=== PATIENT | female | born 1970 | race Caucasian/White ===

== ENCOUNTER 2020-04-22 09:38 | Outpatient (REF) | payer MEDICAID, SELFPAY ==
[2020-04-22 11:43] LABS: MANUAL DIFF FLAG NO
[2020-04-22 11:59] LABS: Basophils Absolute Auto 0.1 X10*3/uL (0.0-0.2); Basophils Percent Auto 0.5 % (0-2); Eosinophils Absolute Auto 0.3 X10*3/uL (0.0-0.4); Hematocrit 41.7 % (37-47); Hemoglobin 12.9 g/dl (12.0-16.0); Imm Gran Abs Auto 0.05 X10*3/uL (0.00-0.03); Imm Gran Pct Auto 0.5 % (0.0-0.4); Lymphocytes Absolute Auto 1.6 X10*3/uL (1.2-4.9); Lymphocytes Percent Auto 15.3 % (20-40); Mean Corpuscular HGB Conc 30.9 g/dl (31.0-35.0); Mean Corpuscular Hemoglobin 27.1 pg (27.0-33.0); Mean Corpuscular Volume 87.6 fL (80-98); Mean Platelet Volume 12.2 fL (9.4-12.3); Monocytes Absolute Auto 0.4 X10*3/uL (0.1-1.2); Monocytes Percent Auto 4.1 % (2-11); Neutrophils Absolute Auto 8.2 X10*3/uL (2.0-8.3); Neutrophils Percent Auto 76.6 % (45-73); Platelet Count 274 X10*3/uL (160-400); Red Blood Count 4.76 X10*6/uL (4.20-5.50); Red Cell Distribution Width 13.2 % (11.0-16.0); White Blood Count 10.7 X10*3/uL (4.8-10.8)
[2020-04-22 12:12] LABS: Estimated Average Glucose 266 mg/dL; Hemoglobin A1c % 10.9 %
[2020-04-22 12:25] LABS: Alanine Aminotransferase 36 U/L (0-31); Albumin Level 4.2 g/dL (3.5-5.0); Alkaline Phosphatase 89 U/L (39-117); Anion Gap 15 (12-20); Aspartate Amino Transferase 31 U/L (5-31); Bilirubin Total 0.7 mg/dL (0.0-1.0); Blood Urea Nitrogen 11 mg/dL (9-16); Calcium 9.1 mg/dL (8.4-10.2); Carbon Dioxide 29 mmol/L (22-29); Chloride 97 mmol/L (96-108); Estimated Glomerular Filt Rate > 60; Glucose Random 289 mg/dL (60-115); Potassium 4.6 mmol/l (3.3-5.1); Sodium 136 mmol/L (135-145); Total Protein 6.9 g/dL (6.5-8.0)
[2020-04-22 14:21] LABS: Creatinine Urine 54.23 mg/dL; Microalbum/Creatinine Ratio Ur 33.1 ug/mg cr
[2020-04-22 15:21] LABS: CT PCR NOT DETECTED (Not Detect.); NG PCR NOT DETECTED (Not Detect.)
[2020-04-22 16:47] LABS: CT PCR NOT DETECTED (Not Detect.)
[2020-04-22 16:48] LABS: NG PCR NOT DETECTED (Not Detect.)
[2020-04-23 12:58] LABS: BV Int Neg Control Negative (Negative); BV Int Pos Control Positive (Positive)
== END 2020-04-22 09:39 | disposition home or self-care (01) ==
LOC: HO.LAB 09:38
PROVIDERS: Absent Provider Internal Medicine; PCP Internal Medicine; Visit Provider Obstetrics & Gynecology
DX: Z01.419 Encounter for gynecological examination (general) (routine) without abnormal findings (principal); E11.9 Type 2 diabetes mellitus without complications; I10 Essential (primary) hypertension; E78.00 Pure hypercholesterolemia, unspecified; E66.01 Morbid (severe) obesity due to excess calories; Z68.43 Body mass index [BMI] 50.0-59.9, adult; Z86.73 Personal history of transient ischemic attack (TIA), and cerebral infarction without residual deficits
CPT/HCPCS: 36415; 80053; 82043; 83036; 85025; 87480; 87491; 87510; 87591; 87660

== ENCOUNTER 2020-08-18 13:16 | Outpatient (REF) | payer MEDICARE, MEDICAID, SELFPAY ==
[2020-08-18 15:15] LABS: Estimated Average Glucose 220 mg/dL; Hemoglobin A1c % 9.3 %
[2020-08-18 15:32] LABS: Alanine Aminotransferase 33 U/L (0-31); Alkaline Phosphatase 97 U/L (39-117); Anion Gap 14 (12-20); Aspartate Amino Transferase 23 U/L (5-31); Bilirubin Total 0.5 mg/dL (0.0-1.0); Blood Urea Nitrogen 9 mg/dL (9-16); Carbon Dioxide 29 mmol/L (22-29); Chloride 102 mmol/L (96-108); Estimated Glomerular Filt Rate > 60; Glucose Random 204 mg/dL (60-115); Potassium 4.2 mmol/L (3.3-5.1); Sodium 141 mmol/L (135-145); Total Protein 6.5 g/dL (6.5-8.0)
== END 2020-08-18 13:17 | disposition home or self-care (01) ==
LOC: HO.LAB 13:16
PROVIDERS: PCP Internal Medicine; Visit Provider Internal Medicine
DX: E11.9 Type 2 diabetes mellitus without complications (principal); I10 Essential (primary) hypertension; Z86.73 Personal history of transient ischemic attack (TIA), and cerebral infarction without residual deficits
CPT/HCPCS: 36415; 80053; 83036

== ENCOUNTER 2020-12-12 10:56 | Outpatient (REF) | payer MEDICARE, MEDICAID, SELFPAY ==
[2020-12-12 11:55] LABS: Estimated Average Glucose 189 mg/dL; Hemoglobin A1c % 8.2 %
[2020-12-12 12:16] LABS: Alanine Aminotransferase 36 U/L (0-31); Albumin Level 4.2 g/dL (3.5-5.0); Alkaline Phosphatase 86 U/L (39-117); Anion Gap 14 (12-20); Aspartate Amino Transferase 28 U/L (5-31); Bilirubin Total 0.4 mg/dL (0.0-1.0); Blood Urea Nitrogen 10 mg/dL (9-16); Calcium 9.5 mg/dL (8.4-10.2); Carbon Dioxide 27 mmol/L (22-29); Chloride 103 mmol/L (96-108); Estimated Glomerular Filt Rate > 60; Glucose Random 195 mg/dL (60-115); Potassium 4.4 mmol/L (3.3-5.1); Sodium 140 mmol/L (135-145); Total Protein 6.8 g/dL (6.5-8.0)
[2020-12-12 13:38] LABS: Microalbum/Creatinine Ratio Ur 54.2 ug/mg cr
== END 2020-12-12 10:57 | disposition home or self-care (01) ==
LOC: HO.LAB 10:56
PROVIDERS: PCP Internal Medicine; Visit Provider Internal Medicine
DX: I12.9 Hypertensive chronic kidney disease with stage 1 through stage 4 chronic kidney disease, or unspecified chronic kidney disease (principal); N18.9 Chronic kidney disease, unspecified; E11.22 Type 2 diabetes mellitus with diabetic chronic kidney disease
CPT/HCPCS: 36415; 80053; 82043; 83036

== ENCOUNTER 2021-01-16 15:44 | Outpatient (REF) | payer MEDICARE, MEDICAID, SELFPAY ==
[2021-01-16 16:17] LABS: Urine Cytology See Pathology rpt
[2021-01-16 16:24] LABS: Glucose Urine UA >=1000 MG/DL (NEG); Leukocyte Esterase Urine TRACE (NEG); Nitrite Urine NEG (NEG); Specific Gravity - Urine 1.025 (1.005-1.025); UACC Culture Trigger YES; Urine Blood 3+ (NEG); Urine Ketones 5 MG/DL (NEG); Urine Protein 2+ MG/DL (NEG-TRACE)
[2021-01-16 16:27] LABS: Appearance Urine HAZY; Color Urine DARK YELLOW
[2021-01-16 16:33] LABS: Squamous Epithelial Cell Urine 4+ /LPF
== END 2021-01-16 15:45 | disposition home or self-care (01) ==
LOC: HO.LAB 15:44
PROVIDERS: PCP Internal Medicine; Visit Provider Internal Medicine
DX: R31.9 Hematuria, unspecified (principal)
CPT/HCPCS: 81001; 81003; 87086; 88112

== ENCOUNTER 2021-01-19 06:35 | Emergency (ER) | payer MEDICARE, MEDICAID, SELFPAY ==
--- NOTE | ~2021-01-19 | US_ITS ---
EXAMINATION: US PELVIS ULTRASOUND CLINICAL INFORMATION: Vaginal bleeding. Age 50. LMP: irregular since 2018. COMPARISON: None TECHNIQUE: Ultrasound of the pelvis is performed using both transabdominal and transvaginal transducers along with Doppler. Transvaginal imaging is performed due to inadequate visualization transabdominally. FINDINGS: Uterus: The uterus is anteverted and measures 11.6 x 6.0 x 5.7 cm. Volume 208 mL. The double wall endometrial thickness mildly thickened 17 mm. The uterus is smooth in contour with normal myometrial echogenicity. There is a subtle nearly isoechoic intramural fibroid anterior right lower uterine segment measuring 2.8 x 2.2 x 2.6 cm. The remainder of the uterus is homogeneous. There is an incidental 0.7 cm nabothian cyst in the cervix. Adnexa: Neither ovary is visualized with certainty. There is no visible adnexal mass or ascites. US/US pelvic and transvaginal IMPRESSION: Uterus: -Intramural fibroid lower anterior right uterine segment 2.8 cm. -Mildly thickened double wall endometrial thickness 1.7 cm. Adnexa: -Ovaries not visualized. -No visible adnexal mass or pelvic ascites.
[2021-01-19 07:16] VITALS: BP 186/93; PULSE 103; RESP 96; TEMP 36.8; O2SAT 96
[2021-01-19 08:00] VITALS: BP 187/92; PULSE 103; RESP 18; O2SAT 96; BMI 50.2
--- NOTE | 2021-01-19 08:11 | ED.FEMALEGU ---
HPI - Female Genitourinary General Chief complaint: Vaginal Bleeding Stated complaint: severe abnormal bleeding Time Seen by Provider: 01/19/21 08:09 Source: patient Mode of arrival: ambulatory Limitations: no limitations History of Present Illness HPI Narrative: 50-year-old female came in for evaluation of vaginal bleeding. Started to have vaginal bleed 3 days ago that is gradually getting worse, patient had 1 bloody soaked vaginal pad, patient contacted her morning caregiver and having an appointment in 1 week, patient is sexually active but pretty sure she is not , no abdominal pain pelvic pain, do not feel dizzy or lightheadedness. Patient claimed that she is premenopausal and. Has been in a regular for the past 2 years after she had her stroke. Related Data Allergies Allergy/AdvReac Type Severity Reaction Status Date / Time No Known Allergies Allergy Verified 04/22/20 09:47 [No Known Allergies*] Review of Systems Review of Systems: All other systems are reviewed and are negative Constitutional: Reports as per HPI and Reports no additional constitutional complaints Eyes: Reports as per HPI and Reports no additional eye complaints Reports system reviewed and no additional complaints, except as documented Cardiovascular: Reports as per HPI and Reports no additional cardiovascular complaints Respiratory: Reports as per HPI and Reports no additional respiratory complaints Gastrointestinal: Reports as per HPI and Reports no additional gastrointestinal complaints Genitourinary: Reports no additional female genitourinary complaints Musculoskeletal: Reports no additional musculoskeletal complaints Skin/Breast: Reports system reviewed and no additional complaints, except as docu Psychiatric: Reports no additional psychiatric complaints Endocrine: Reports no additional endocrine complaints Hematologic/Lymphatic: Reports no additional hematologic/lymphatic complaints Allergic/Immunologic: Reports no additional allergic/immunologic complaints Reports system reviewed and no additional complaints, except as documented and Reports Abnormal speech present [facility] Past Medical History Medical History Diabetes Hypertension Muscle spasm Stroke Surgical History H/O dilation and curettage Hx of tubal ligation Family History Family History Father History of liver cancer Mother Hx of thyroid disease Family history of diabetes mellitus Social History Social History Alcohol intake: never Patient Tobacco Use Status: Never used Tobacco Cigarette Packs Per Day: 0.5 Cigarettes Per Day: 10.0 Years Smoked: 20 Use of substances other than those prescribed or required for medical reasons: No Advance Directives: No Advance Directives Information Provided: No Physical Exam Vital Signs: Vital Signs: Last Vital Signs Temp 98.2 F 01/19/21 07:16 Pulse 104 H 01/19/21 10:32 Resp 20 01/19/21 10:32 BP 157/82 H 01/19/21 10:32 Pulse Ox 97 01/19/21 10:32 Body Mass Index 50.2 Vital signs have been reviewed as appeared to be correct. Blood pressure elevated. Heart rate elevated.Respiration rate normal. Temperature normal. Oxygen saturation normal. Appearance: Alert. Oriented X3. No acute distress. Head: Normal external exam. Normocephalic. Atraumatic. No [place] signs noted. No raccoon eyes noted Eyes: PERRLA. EOMI. Conjunctiva and sclera normal. Eyelids normal. ENT: TM's Normal. Pharynx normal. Uvula midline. Moist mucous membranes. No trismus noted. No drooling noted. No muffled voice noted. Neck: Normal inspection. Neck supple. FROM. No adenopathy. Thyroid Normal. No meningeal signs. No neck mass noted. CVS: Normal heart rate and rhythm. Heart sound normal. No murmurs noted. Pulses normal throughout. Respiratory: No respiratory distress. Painless inspiration. Breath sounds normal. No wheezes/rales/rhonchi noted. Chest nontender. No accessory muscle usage noted or decreased air movement noted. Abdomen: Soft and nontender. Bowel sounds normal in all 4 quadrants. No distention noted. No organomegaly noted. No visible injury noted. Pelvic exam: Blood in the vault no active bleeding, no pelvic tenderness, adnexal palpable mass. Back: No CVA tenderness. Full range of motion noted. Skin: Skin warm and dry. Normal skin color. Normal skin turgor. No rashes/lesions/lacerations noted. Extremities: No lower extremity edema. Extremities exhibit normal range of motion. Extremities nontender. Neuro: Oriented X 3. No motor deficit. No sensory deficit. Reflexes normal. Course Course Course Narrative: Assessment and plan. 50-year-old female came in with menorrhagia for 2-3 days, patient had fibroid tumor in the uterus, patient otherwise hemodynamically stable no chest pain, no dizziness, no lightheadedness, orthostatic vital signs stable, H&H are stable. Patient ready have an appointment with OBGYN within 2 weeks. Patient was instructed to return if any chest pain/dizziness/lightheadedness/increase the bleeding. MDM - Female Genitourinary Lab Data Attestation: I reviewed the patient's lab results. Result diagrams: 01/19/21 08:14 01/19/21 08:14 Labs: Lab Results 01/19/21 01/19/21 01/19/21 Range/Units 08:14 08:14 08:15 WBC 10.2 (4.8-10.8) X10*3/uL RBC 4.61 (4.20-5.50) X10*6/uL Hgb 12.5 (12.0-16.0) g/dl Hct 40.3 (37-47) % MCV 87.4 (80-98) fL MCH 27.1 (27.0-33.0) pg MCHC 31.0 (31.0-35.0) g/dl RDW 14.2 (11.0-16.0) % Plt Count 304 (160-400) X10*3/uL MPV 11.3 (9.4-12.3) fL Immature Gran % (Auto) 0.3 (0.0-0.4) % Neut % (Auto) 71.9 (45-73) % Lymph % (Auto) 21.4 (20-40) % [place] % (Auto) 4.5 (2-11) % Eos % (Auto) 1.6 (0-4) % Baso % (Auto) 0.3 (0-2) % Lymph # (Auto) 2.2 (1.2-4.9) X10*3/uL [place] # (Auto) 0.5 (0.1-1.2) X10*3/uL Eos # (Auto) 0.2 (0.0-0.4) X10*3/uL Baso # (Auto) 0.0 (0.0-0.2) X10*3/uL Abs Immat Gran (auto) 0.03 (0.00-0.03) X10*3/uL Absolute Neuts (auto) 7.4 (2.0-8.3) X10*3/uL Absolute Nucleated RBC 0.000 (0.0-0.012) X10*3/uL Nucleated RBC % (auto) 0.0 (0.0-0.2) /100WBC Sodium 141 (135-145) mmol/L Potassium 4.2 (3.3-5.1) mmol/L Chloride 102 (96-108) mmol/L Carbon Dioxide 28 (22-29) mmol/L Anion Gap 15 (12-20) BUN 10 (9-16) mg/dL Creatinine 0.73 (0.5-1.4) mg/dL Estim Creat Clear Calc 130.9 Estimated GFR > 60 Random Glucose 231 H (60-115) mg/dL Calcium 10.2 D (8.4-10.2) mg/dL Urine Color YELLOW Urine Appearance HAZY Urine pH 5.5 (5.0-8.0) Ur Specific [place] >= 1.030 H (1.005-1.025) Urine Protein TRACE (NEG-TRACE) MG/DL Urine Glucose (UA) 500 H (NEG) MG/DL Urine Ketones 5 (NEG) MG/DL Urine Blood 3+ H (NEG) Urine Nitrite NEG (NEG) Ur Leukocyte Esterase NEG (NEG) Urine RBC 50-75 H (0) /HPF Urine WBC 1-4 (0-4) /HPF Ur Squamous Epith Cells 1+ /LPF Urine Bacteria NONE /LPF Urine Test (NEGATIVE) 01/19/21 Range/Units 08:15 WBC (4.8-10.8) X10*3/uL RBC (4.20-5.50) X10*6/uL Hgb (12.0-16.0) g/dl Hct (37-47) % MCV (80-98) fL MCH (27.0-33.0) pg MCHC (31.0-35.0) g/dl RDW (11.0-16.0) % Plt Count (160-400) X10*3/uL MPV (9.4-12.3) fL Immature Gran % (Auto) (0.0-0.4) % Neut % (Auto) (45-73) % Lymph % (Auto) (20-40) % [place] % (Auto) (2-11) % Eos % (Auto) (0-4) % Baso % (Auto) (0-2) % Lymph # (Auto) (1.2-4.9) X10*3/uL [place] # (Auto) (0.1-1.2) X10*3/uL Eos # (Auto) (0.0-0.4) X10*3/uL Baso # (Auto) (0.0-0.2) X10*3/uL Abs Immat Gran (auto) (0.00-0.03) X10*3/uL Absolute Neuts (auto) (2.0-8.3) X10*3/uL Absolute Nucleated RBC (0.0-0.012) X10*3/uL Nucleated RBC % (auto) (0.0-0.2) /100WBC Sodium (135-145) mmol/L Potassium (3.3-5.1) mmol/L Chloride (96-108) mmol/L Carbon Dioxide (22-29) mmol/L Anion Gap (12-20) BUN (9-16) mg/dL Creatinine (0.5-1.4) mg/dL Estim Creat Clear Calc Estimated GFR Random Glucose (60-115) mg/dL Calcium (8.4-10.2) mg/dL Urine Color Urine Appearance Urine pH (5.0-8.0) Ur Specific [place] (1.005-1.025) Urine Protein (NEG-TRACE) MG/DL Urine Glucose (UA) (NEG) MG/DL Urine Ketones (NEG) MG/DL Urine Blood (NEG) Urine Nitrite (NEG) Ur Leukocyte Esterase (NEG) Urine RBC (0) /HPF Urine WBC (0-4) /HPF Ur Squamous Epith Cells /LPF Urine Bacteria /LPF Urine Test NEGATIVE (NEGATIVE) Imaging Data Pelvic ultrasound: Radiologist's impression: Ovaries not visualized. -No visible adnexal mass or pelvic ascites. Uterus: -Intramural fibroid lower anterior right uterine segment 2.8 cm. -Mildly thickened double wall endometrial thickness 1.7 cm. Discharge Plan Discharge Clinical Impression: Menometrorrhagia, Fibroid uterus Patient Disposition: Home, Self-Care Instructions: Menorrhagia (ED) Referrals: Guanaco Osuna MD [Primary Care Provider] - 2 days Maria Alejandra Miller MD [Physician] - 2 days
[2021-01-19 08:27] LABS: MANUAL DIFF FLAG NO
[2021-01-19 08:29] LABS: Basophils Percent Auto 0.3 % (0-2); Eosinophils Absolute Auto 0.2 X10*3/uL (0.0-0.4); Eosinophils Percent Auto 1.6 % (0-4); Hematocrit 40.3 % (37-47); Hemoglobin 12.5 g/dl (12.0-16.0); Imm Gran Abs Auto 0.03 X10*3/uL (0.00-0.03); Imm Gran Pct Auto 0.3 % (0.0-0.4); Lymphocytes Absolute Auto 2.2 X10*3/uL (1.2-4.9); Lymphocytes Percent Auto 21.4 % (20-40); Mean Corpuscular Hemoglobin 27.1 pg (27.0-33.0); Mean Corpuscular Volume 87.4 fL (80-98); Mean Platelet Volume 11.3 fL (9.4-12.3); Monocytes Absolute Auto 0.5 X10*3/uL (0.1-1.2); Monocytes Percent Auto 4.5 % (2-11); Neutrophils Absolute Auto 7.4 X10*3/uL (2.0-8.3); Neutrophils Percent Auto 71.9 % (45-73); Platelet Count 304 X10*3/uL (160-400); Red Blood Count 4.61 X10*6/uL (4.20-5.50); Red Cell Distribution Width 14.2 % (11.0-16.0); White Blood Count 10.2 X10*3/uL (4.8-10.8)
[2021-01-19 08:31] LABS: Glucose Urine UA 500 MG/DL (NEG); Leukocyte Esterase Urine NEG (NEG); Nitrite Urine NEG (NEG); PH 5.5 (5.0-8.0); Specific Gravity - Urine >= 1.030 (1.005-1.025); UACC Culture Trigger NO; Urine Blood 3+ (NEG); Urine Ketones 5 MG/DL (NEG); Urine Protein TRACE MG/DL (NEG-TRACE)
[2021-01-19 08:33] LABS: Appearance Urine HAZY; Color Urine YELLOW
[2021-01-19 08:41] LABS: RBC Urine 50-75 /HPF (0); Squamous Epithelial Cell Urine 1+ /LPF
[2021-01-19 08:42] LABS: UPreg QC Valid YES; Urine Pregnancy NEGATIVE (NEGATIVE)
[2021-01-19 09:00] LABS: Anion Gap 15 (12-20); Blood Urea Nitrogen 10 mg/dL (9-16); Calcium 10.2 mg/dL (8.4-10.2); Carbon Dioxide 28 mmol/L (22-29); Chloride 102 mmol/L (96-108); Creatinine Clr Calc Pharmacy 130.9; Estimated Glomerular Filt Rate > 60; Glucose Random 231 mg/dL (60-115); Potassium 4.2 mmol/L (3.3-5.1); Sodium 141 mmol/L (135-145)
--- NOTE | 2021-01-19 09:18 | PC.NURSE ---
pt to ultrasound via wheelchair. Pt is alert and in no distress
--- NOTE | 2021-01-19 10:00 | PC.NURSE ---
Patient is back from ultrasound in no acute distress
[2021-01-19 10:27] VITALS: BP 142/73; BP 157/83; PULSE 102; PULSE 99
[2021-01-19 10:30] VITALS: BP 157/82; PULSE 104
[2021-01-19 10:32] VITALS: BP 157/82; PULSE 104; RESP 20; O2SAT 97
--- NOTE | 2021-01-19 10:45 | PC.NURSE ---
Patient set up for pelvic exam
--- NOTE | 2021-01-19 10:55 | PC.NURSE ---
Doctor at bedside for pelvic exam. Pt tolerated procedure well.
== END 2021-01-19 11:38 | disposition home or self-care (01) ==
PROVIDERS: Emergency Provider Emergency Medicine; PCP Internal Medicine
DX: N92.1 Excessive and frequent menstruation with irregular cycle (principal); D25.9 Leiomyoma of uterus, unspecified; R42 Dizziness and giddiness; F17.210 Nicotine dependence, cigarettes, uncomplicated; Z71.6 Tobacco abuse counseling; Z79.899 Other long term (current) drug therapy
CPT/HCPCS: 36415; 76830; 76856; 80048; 81001; 81025; 85025; 99285

== ENCOUNTER 2021-01-31 13:15 | Outpatient (REF) | payer MEDICARE, MEDICAID, SELFPAY ==
[2021-02-02 17:22] LABS: HPV mRNA E6/E7 rflx Not Detected (Not Detected)
== END 2021-01-31 13:16 | disposition home or self-care (01) ==
LOC: HO.LAB 13:15
PROVIDERS: PCP Internal Medicine; Visit Provider Advanced Practice Midwife
DX: N93.9 Abnormal uterine and vaginal bleeding, unspecified (principal); D21.9 Benign neoplasm of connective and other soft tissue, unspecified; Z11.51 Encounter for screening for human papillomavirus (HPV)
CPT/HCPCS: 58100; 87624; 88142; 88305

== ENCOUNTER → 2021-02-08 15:49 | Outpatient (BNVA) | payer MEDICARE, MEDICAID, SELFPAY | PROVIDERS: PCP Internal Medicine; Visit Provider Advanced Practice Midwife | DX: N93.9 Abnormal uterine and vaginal bleeding, unspecified (principal); N85.02 Endometrial intraepithelial neoplasia [EIN]; D25.9 Leiomyoma of uterus, unspecified; E11.9 Type 2 diabetes mellitus without complications; I10 Essential (primary) hypertension; F17.210 Nicotine dependence, cigarettes, uncomplicated; Z98.51 Tubal ligation status; Z71.2 Person consulting for explanation of examination or test findings | CPT/HCPCS: Q3014 ==

== ENCOUNTER 2021-03-23 12:46 | Outpatient (REF) | payer MEDICARE, MEDICAID, SELFPAY ==
--- NOTE | ~2021-03-23 | US_ITS ---
EXAMINATION: US EXTRACRANIAL CAROTID DUPLEX, BILATERAL CLINICAL INFORMATION: CVA and TIA COMPARISON: 01/24/2018. TECHNIQUE: Real-time ultrasound and Doppler techniques (integrating B-mode 2-D vascular images, Doppler spectral analysis and color-flow Doppler imaging) were utilized to interrogate the extracranial carotid arteries, the vertebral arteries and proximal subclavian arteries bilaterally. The degree of stenosis is determined by criteria similar to NASCET. FINDINGS: Right Side: 1. There is minimal atherosclerotic plaque seen in the bifurcation/proximal ICA region. 2. The common carotid artery PSV proximally is 116 cm/s and distally 95 cm/s. 3. The proximal internal carotid artery velocities are 76 cm/s systolic and 16 cm/s diastolic. 4. The proximal external carotid artery PSV is 117 cm/s. 5. The vertebral artery shows antegrade flow. 6. The subclavian artery waveforms are normal. Left Side: 1. There is minimal atherosclerotic plaque seen in the bifurcation/proximal ICA region. 2. The common carotid artery PSV proximally is 114 cm/s and distally 98 cm/s. 3. The proximal internal carotid artery velocities are 86 cm/s systolic and 21 cm/s diastolic. 4. The proximal external carotid artery PSV is 96 cm/s. 5. The vertebral artery shows antegrade flow. 6. The subclavian artery waveforms are normal. US/US carotid duplex BI IMPRESSION: 1. RIGHT: Minimal, non-hemodynamically significant stenosis of the proximal right internal carotid artery corresponding to a 0-49% stenosis by velocity criteria. 2. LEFT: Minimal, non-hemodynamically significant stenosis of the proximal left internal carotid artery corresponding to a 0-49% stenosis by velocity criteria. 3. These findings are new compared to the study in 2018.
== END 2021-03-23 12:47 | disposition home or self-care (01) ==
LOC: HO.HMGCX 12:46
PROVIDERS: PCP Internal Medicine; Visit Provider Internal Medicine
DX: Z01.818 Encounter for other preprocedural examination (principal); I10 Essential (primary) hypertension; Z86.73 Personal history of transient ischemic attack (TIA), and cerebral infarction without residual deficits
CPT/HCPCS: 93880

== ENCOUNTER → 2021-03-28 07:10 | Outpatient (REF) | payer MEDICARE, MEDICAID, SELFPAY ==
--- NOTE | 2021-03-28 07:14 | CA_ITS ---
Transthoracic Echocardiogram Patient (Last, First, Middle): Loraine Mathias, Gender: Female Date of : 1970 Age: 50 Procedure Date: 03/28/2021 Procedure Type: Transthoracic Echocardiogram Location: OP Height: 165.1 cm Weight: 136.53 kg BSA: 2.35 m2 Heart Rate: bpm BP: 138 / 80 mmHg Proof Reader: Referring MD: Guanaco Osuna MD Symptoms: HX OF TRANSIENT ISCHEMIC ATTACK, I10 HTN Study Quality: Fair ECG Rhythm: Sinus Conclusions: - The left ventricular systolic function is normal. The visually estimated ejection fraction is between 65-70%. - There is mild calcification of the aortic valve. - No obvious valvular pathology seen on this study. Findings Procedure Information Contrast agent, definity, is being given per protocol without apparent complications. Left Ventricle Normal left ventricular cavity size. There is mildly increased left ventricular wall thickness. The left ventricular systolic function is normal. The visually estimated ejection fraction is between 65-70%. There is no evidence of regional wall motion abnormalities. Diastolic function is normal for age. Right Ventricle Normal right ventricular cavity size and systolic function. Atria Both atria are normal in size. Aortic Valve The aortic valve was not well visualized. There is mild calcification of the aortic valve. There is no aortic valve stenosis. There is no aortic valve regurgitation. Mitral Valve The mitral valve appears normal. There is trace mitral valve regurgitation. There is no mitral valve stenosis. Pulmonic Valve The pulmonic valve was not well visualized. Tricuspid Valve Normal tricuspid valve structure. There is trace tricuspid valve regurgitation. The pulmonary artery systolic pressure is normal. Great Vessels The aortic annulus, sinuses of valsalva, and asc aorta are normal in size. Venous The inferior vena cava is normal in size and collapses greater than 50% with inspiration. Pericardium/Pleural There is no evidence of pericardial effusion. Prior Study Comparison No significant change compared to prior study dated: 01/24/2018. Recommendations, Care & Conclusions No obvious valvular pathology seen on this study. Measurements 2D Linear Measurements IVSd: 1.53 0.6-0.9/0.6-1.0 cm LVIDd: 4.19 3.9-5.3/4.2-5.9 cm LVIDd Index: 1.78 2.4-3.2/2.2-3.1 cm/m2 LVIDs: 2.60 2.0-3.6 cm LVPWd: 1.53 0.7-1.1 cm Ao Root: 3.20 2.1-3.5 cm LA Diam: 3.90 2.7-3.8/3.0-4.0 cm LAIDs Index: 1.66 1.5-2.3 cm/m2 LV Mass: 319.82 67-162/88-224 g LV Mass Index: 136.09 43-95/49-115 g/m2 LVOT Diam: 2.20 3.0+(-)1.3 cm Mitral Valve MV Pk E: 0.84 MV PK A: 0.70 MV Decel Time: 96.00 E/A: 1.20 E'Lateral: 10.10 E'Medial: 9.90 E/E' Med: 8.50 E/E' Lat: 8.40 PHT: 28.00 MVA PHT: 7.86 Decel [place]: 8.83 Aortic Valve AoV Pk Abdias: 1.26 AoV Mn Abdias: 0.81 AoV VTI: 0.27 AoV Pk Grad: 6.00 Aov Mn Grad: 3.00 CHANDU Cont.VTI: 2.33 LVOT LVOT Pk Abdias: 0.74 LVOT Mn Abdias: 0.51 LVOT VTI: 0.16 LVOT Pk Grad: 2.00 LVOT Mn Grad: 1.00 LVOT Diam: 2.20 LVOT Area: 3.80 Diastolic Function MV Pk E: 0.84 MV Pk A: 0.70 E/A: 1.20 E'Medial: 9.90 E/E' Med: 8.50 E' Laterial: 10.10 E/E' Lat: 8.40 Right Ventricle TAPSE (mm): 31.00 TVS' Abdias: 13.00 Tricuspid Valve TR Pk Abdias: 1.71 TR Pk Grad: 12.00 Great Vessels Aorta Ao Root-2D: 3.20 2.0-3.7 cm Pulmonary Valve PV Pk Abdias: 1.11 Peak PV Grad: 5.00 Updated in Other Vendor System with Status of Final Killian Fritz MD electronically signed on 03/28/2021 12:41:44 PM with status of Final
== END ==
LOC: HO.CARD 07:10
PROVIDERS: Visit Provider Internal Medicine
DX: I10 Essential (primary) hypertension (principal); Z86.73 Personal history of transient ischemic attack (TIA), and cerebral infarction without residual deficits
CPT/HCPCS: 93306; Q9957

== ENCOUNTER 2021-09-29 14:46 | Outpatient (REF) | payer MEDICARE, MEDICAID, SELFPAY ==
[2021-09-29 15:05] LABS: MANUAL DIFF FLAG NO
[2021-09-29 15:09] LABS: Basophils Percent Auto 0.4 % (0-2); Eosinophils Absolute Auto 0.1 X10*3/uL (0.0-0.4); Eosinophils Percent Auto 1.4 % (0-4); Hematocrit 38.5 % (37.0-47.0); Hemoglobin 11.8 g/dl (12.0-16.0); Imm Gran Abs Auto 0.03 X10*3/uL (0.00-0.03); Imm Gran Pct Auto 0.3 % (0.0-0.4); Lymphocytes Absolute Auto 1.7 X10*3/uL (1.2-4.9); Lymphocytes Percent Auto 16.8 % (20-40); Mean Corpuscular HGB Conc 30.6 g/dl (31.0-35.0); Mean Corpuscular Hemoglobin 26.3 pg (27.0-33.0); Mean Corpuscular Volume 85.9 fL (80.0-98.0); Mean Platelet Volume 11.4 fL (9.4-12.3); Monocytes Absolute Auto 0.4 X10*3/uL (0.1-1.2); Monocytes Percent Auto 3.9 % (2-11); Neutrophils Absolute Auto 7.7 x10*3/uL (2.0-8.3); Neutrophils Percent Auto 77.2 % (45-73); Platelet Count 302 X10*3/uL (160-400); Red Blood Count 4.48 X10*6/uL (4.20-5.50); White Blood Count 9.9 X10*3/uL (4.8-10.8)
[2021-09-29 15:18] LABS: Estimated Average Glucose 203 mg/dL; Hemoglobin A1c % 8.7 %
[2021-09-29 15:43] LABS: Alanine Aminotransferase 30 U/L (0-31); Albumin Level 4.5 g/dL (3.5-5.0); Alkaline Phosphatase 97 U/L (39-117); Anion Gap 17 (12-20); Aspartate Amino Transferase 22 U/L (5-31); Bilirubin Total 0.5 mg/dL (0.0-1.0); Blood Urea Nitrogen 10 mg/dL (9-16); Carbon Dioxide 25 mmol/L (22-29); Chloride 103 mmol/L (96-108); Estimated Glomerular Filt Rate > 60; Glucose Random 247 mg/dL (60-115); Potassium 4.5 mmol/L (3.3-5.1); Sodium 140 mmol/L (135-145); Total Protein 7.4 g/dL (6.5-8.0)
[2021-09-29 16:07] LABS: Creatinine Urine 119.43 mg/dL; Microalbum/Creatinine Ratio Ur 210.1 ug/mg cr
== END 2021-09-29 14:47 | disposition home or self-care (01) ==
LOC: HO.LAB 14:46
PROVIDERS: PCP Internal Medicine; Visit Provider Internal Medicine
DX: I10 Essential (primary) hypertension (principal); E11.9 Type 2 diabetes mellitus without complications
CPT/HCPCS: 36415; 80053; 82043; 83036; 85025

== ENCOUNTER 2021-12-26 12:36 | Inpatient (IN) | payer MEDICARE, MEDICAID, SELFPAY ==
[2021-12-26] VITALS (9 sets, daily range): BP systolic 161–190; BP diastolic 73–88; PULSE 90–106; RESP 14–20; TEMP 36.3–37; O2SAT 95–97; BMI 44.2
--- NOTE | ~2021-12-26 | XR_ITS ---
EXAMINATION: XR CHEST CLINICAL INFORMATION: Difficulty breathing COMPARISON: None TECHNIQUE: Frontal view of the chest was obtained. FINDINGS: No significant abnormality is noted involving the heart, lungs, mediastinum, bony thorax or soft tissues. XR/XR chest 1V IMPRESSION: Unremarkable examination.
--- NOTE | ~2021-12-26 | CT_ITS ---
EXAMINATION: CT ANGIOGRAM HEAD CT ANGIOGRAM NECK CLINICAL INFORMATION: Cerebrovascular accident. COMPARISON: Brain MRI from 12/26/2021. CT head from 12/26/2021. TECHNIQUE: Initial noncontrast business owner/engineer imaging of the head and neck was performed. Noncontrast head CT was also performed. Test bolus sequences followed by intravenous administration 70 mL of Omnipaque 350. Helical imaging was performed in the axial plane from the aortic arch to the skull vertex. Delayed postcontrast imaging of the head was also performed. The data was processed at the special procedure technologist's workstation for generation of MIP sequences. Angled MIPs and volume rendered reformatted images were also generated at an offline 3D workstation. Stenoses are assessed in accordance with NASCET criteria unless otherwise indicated. This CT examination was performed using dose optimization techniques as appropriate, variously including the following: *Automated exposure control. *Adjustment of mA and/or kV according to patient size (this includes techniques or standardized protocols for targeted exams where dose is matched to indication/reason for exam; i.e. extremities or head). *Use of iterative reconstruction technique. DLP: 3053 mGy-cm FINDINGS: CT Head: There is no evidence of acute intracranial hemorrhage or edematous territorial infarction. A few foci of hypoattenuation in the periventricular and deep white matter are consistent with mild microangiopathy. Thompson-white matter differentiation is preserved. The ventricles are normal in size and configuration. No evidence for obstructive hydrocephalus. No abnormal mass effect or midline shift. No extra-axial fluid collections. No pathologic intra-axial enhancement or regional oligemia. No acute soft tissue or osseous abnormalities. Mild mucosal thickening of the paranasal sinuses. Moderate rightward nasal septal deviation. The mastoid air cells and middle ear cavities are clear. The patient is edentulous. CT Neck: The thyroid gland and remaining cervical soft tissues are within normal limits. Straightening of the normal cervical lordosis. Advanced degenerative disc disease at C6-C7. Moderate degenerative disc disease at C5-C6 and C7-T1. Associated disc-osteophyte complex formation. Facet and uncovertebral joint arthropathy leads to osseous encroachment on the neural foramina at C6-C7. CT Upper Chest: The visualized lung apices and upper mediastinum are within normal limits. Neck CTA: Aortic Arch: Normal contour and caliber. Classic 3 vessel branching pattern of the aortic arch. Great Vessel Origins: No significant stenosis of the branch origins. Right Common Carotid Artery: No focal stenosis or occlusion. Cervical Right Internal Carotid Artery: Normal opacification without focal stenosis or occlusion. Left Common Carotid Artery: No focal stenosis or occlusion. Cervical Left Internal Carotid Artery: Normal opacification without focal stenosis or occlusion. Cervical Right Vertebral Artery: Co-dominant. The origin of the right vertebral artery is not well evaluated secondary to significant surrounding venous contrast opacification. Otherwise, no demonstrated focal stenosis or occlusion. Cervical Left Vertebral Artery: Co-dominant. No focal stenosis or occlusion. Brain CTA: Intracranial Internal Carotid Arteries: Calcific atherosclerotic disease of the intracranial internal carotid arteries without occlusion or flow-limiting stenosis. Right Anterior Cerebral Artery: Normal A1 segment. Normal opacification of the distal ТАТЬЯНА segments. Left Anterior Cerebral Artery: Normal A1 segment. Normal opacification of the distal ТАТЬЯНА segments. Anterior Communicating Artery: Normal. Right Middle Cerebral Artery: Normal M1 segment of the MCA without focal stenosis or occlusion. Normal arborization of the distal segments. Left Middle Cerebral Artery: Normal M1 segment of the MCA without focal stenosis or occlusion. Normal arborization of the distal segments. Right Vertebral Artery: Normal V4 segment. The posterior inferior cerebellar artery is not well opacified; however, there is no CT evidence of acute occlusion. Left Vertebral Artery: Normal V4 segment. The posterior inferior cerebellar artery is not well opacified; however, there is no CT evidence of acute occlusion. Basilar Artery: Normal without focal stenosis or occlusion. Normal appearance of the proximal superior cerebellar arteries. Right Posterior Cerebral Artery: Moderate atherosclerotic stenoses of the P1 and P2 segments without overt occlusion. Persistent opacification of the distal SHEET METAL FOREMAN segments. Left Posterior Cerebral Artery: Normal P1 segment. Mild to moderate atherosclerotic stenosis of the P2 segment. Normal opacification of the distal SHEET METAL FOREMAN segments. Normal opacification of the superior sagittal, straight, transverse, and sigmoid sinuses. CT/CT angio head neck IMPRESSION: 1. No evidence of acute intracranial hemorrhage or edematous territorial infarction. The previously noted punctate acute infarct of the right ventral medulla was better demonstrated on prior MRI. 2. CTA of the head and neck without proximal occlusion. Moderate atherosclerotic stenoses of the proximal global consumer sector vice president (right greater than left).
--- NOTE | ~2021-12-26 | CT_ITS ---
EXAMINATION: CT HEAD WITHOUT CONTRAST CLINICAL INFORMATION: Worsening right-sided deficits since Saturday COMPARISON: Previous head CT and brain MRI January 2018 TECHNIQUE: Contiguous axial imaging was performed from the skull base to vertex without intravenous administration of contrast. This CT examination was performed using dose optimization techniques as appropriate, variously including the following: *Automated exposure control *Adjustment of mA and/or kV according to patient size (this includes techniques or standardized protocols for targeted exams where dose is matched to indication/reason for exam; i.e. extremities or head) *Use of iterative reconstruction technique DLP: 868 mGy-cm FINDINGS: There is no evidence of acute intracranial hemorrhage or territorial infarction. No abnormal mass effect or midline shift is seen. Thompson to white matter differentiation is well preserved. No extra-axial fluid collections are identified. The ventricles are normal in size. There is no abnormal attenuation within the brain parenchyma. The osseous structures and soft tissues are normal. The mastoid air cells and visualized portions of the paranasal sinuses are well aerated. CT/CT head/brain wo con IMPRESSION: Unremarkable exam.
--- NOTE | ~2021-12-26 | MR_ITS ---
MRI OF THE BRAIN WITHOUT IV CONTRAST INDICATION: Worsening right-sided weakness COMPARISON: Head CT 12/26/2021. TECHNIQUE: Multiplanar multisequence MR imaging of the brain was obtained without IV contrast. FINDINGS: There is a small acute infarct involving the right ventral medulla. There is no hydrocephalus, extra-axial surface collection, or herniation. There is global cerebral volume loss and there is mild chronic microangiopathy. There is cerebellar volume loss as well. The major flow voids at the skull base are preserved. There is no intracranial hemorrhage on the gradient recalled echo acquisition. The midline structures are normal. The cerebellar tonsils are normally positioned. The craniocervical junction is normal. Osseous marrow signal intensity is homogenous. The visualized soft tissues are unremarkable. MR/MR head/brain wo con IMPRESSION: - There is a small acute infarct involving the right ventral medulla. No mass effect and no hemorrhagic transformation. - There is global cerebral volume loss and there is mild chronic microangiopathy. There is cerebellar volume loss as well.
--- NOTE | 2021-12-26 12:52 | ED_ITS ---
HPI - Neuro Symptoms/Deficit General Chief Complaint: Stroke Stated Complaint: possible TIA , can't move R side of body Time Seen by Provider: 12/26/21 12:45 Source: patient and old records reviewed Mode of arrival: ambulatory Limitations: no limitations History of Present Illness HPI Narrative: 51 yo female with hx of CVA in 2018 residual R sided deficits ( R hand contracted, RLE weakness) DM, HTN here with c/o noticing worsening weakness of her R side Saturday which progressed on Saturday night around 6pm and became severe to the point she couldn't raise her R arm and she is having a hard time walking. She is compliant with her medications and took her baby ASA today. No falls. Onset (ago): day(s) (2) Location: right arm and right leg History of same: Yes Severity: moderate Quality: weak Relieving factors: none Exacerbating factors: none Context: gradual onset On Anticoagulants: No Associated symptoms: denies other symptoms Treatments Prior to Arrival: Aspirin Related Data Home Medications Medication Instructions Recorded Confirmed aspirin 81 mg tablet,delayed 81 mg PO DAILY 01/31/21 release (Adult Low Dose Aspirin) atorvastatin 40 mg tablet mg PO 01/31/21 baclofen 10 mg tablet mg PO 01/31/21 bupropion HCl 300 mg 24 hr tablet, mg PO 01/31/21 extended release dulaglutide 1.5 mg/0.5 mL mg subcut 01/31/21 subcutaneous pen injector (Trulicity) fluoxetine 20 mg capsule mg PO 01/31/21 gabapentin 100 mg capsule mg PO 01/31/21 gabapentin 300 mg capsule mg PO 01/31/21 glipizide 5 mg tablet, extended mg PO 01/31/21 release 24 hr lisinopril 20 mg tablet mg PO 01/31/21 metformin 1,000 mg tablet mg PO 01/31/21 omeprazole 20 mg capsule,delayed mg PO 01/31/21 release prochlorperazine maleate 10 mg mg PO 01/31/21 tablet Allergies Allergy/AdvReac Type Severity Reaction Status Date / Time No Known Allergies Allergy Verified 02/08/21 15:49 [No Known Allergies*] Review of Systems Review of Systems: Constitutional : No Weight loss, No Fever, No Chills, No Fatigue, No Malaise ENT/Mouth : No sore throat, No Rhinorrhea Eyes: No Eye Pain, No Swelling, No Redness Cardiovascular : No Chest Pain, No SOB, No Dyspnea on Exertion, No Orthopnea, No Edema, No Palpitations Respiratory : No Cough, No Sputum, No Wheezing Gastrointestinal : No Nausea, No Vomiting, No Diarrhea, No Constipation, No abdominal Pain, No Hematochezia, No Melena Genitourinary : No Dysuria, No Urinary Frequency, No Hematuria, Musculoskeletal : No joint pain, No Myalgias, No Joint Swelling Skin : No Skin Lesions, No rash Neuro : pos Weakness, No Numbness, No Dizziness, No Headache Psych : No Anxiety/Panic, No Depression Heme/Lymph: No Bruising, No Bleeding,No Lymphadenopathy Endocrine : No Polyuria, No Polydipsia All other systems reviewed and are negative [facility] Past Medical History Attestation statement: The following information was validated with the patient. Source: old records reviewed Medical History Complex atypical endometrial hyperplasia CVA (cerebral vascular accident) Diabetes Fibroids Hypertension Muscle spasm Stroke Surgical History H/O dilation and curettage Hx of adenoidectomy Hx of tubal ligation Family History Family History Father History of liver cancer Mother Hx of thyroid disease Family history of diabetes mellitus Social History Social History Alcohol intake: never Patient Tobacco Use Status: Never used Tobacco Cigarette Packs Per Day: 0.5 Cigarettes Per Day: 10.0 Years Smoked: 20 Advance Directives: No Advance Directives Information Provided: No Physical Exam Vital Signs: Vital Signs: Last Vital Signs Temp 98.6 F 12/26/21 15:28 Pulse 96 12/26/21 15:28 Resp 18 12/26/21 15:28 BP 188/82 H 12/26/21 15:28 Pulse Ox 95 12/26/21 15:28 O2 Del Method 12/26/21 15:28 BMI result Body Mass Index 44.2 Appearance: Alert. Oriented X3. No acute distress. Eyes: Pupils equal, round and reactive to light. ENT: Pharynx normal. Neck: Normal inspection. Neck supple. CVS: Normal heart rate and rhythm. Pulses normal. Respiratory: No respiratory distress. Breath sounds normal. Abdomen: Soft and non-tender. Skin: Skin warm and dry. Normal skin color. Normal skin turgor. Extremities: No lower extremity edema. No calf ttp Neuro: Oriented X 3. R hand contracted (old) cannot life R up at shoulder 3+ / 5 RLE 4/5, L side 5/5, no sensory deficits, CN intact Course Course Course Narrative: CT head negative will obtain MRI aspirin ordered + stroke will admit for further workup MDM - Neuro Symptoms/Deficit MDM Narrative Medical decision making narrative: 51 yo female with hx of CVA in 2018 residual R sided deficits ( R hand c ontracted, RLE weakness) DM, HTN here with worsening R sided deficits from prior stroke over the past two days. She is out of the tPa window at this time. Will obtain basic labs, EKG, CT head - symptoms > 24 hours. Dispo per results and findings. Lab Data Result diagrams: 12/26/21 13:22 12/26/21 13:22 Labs: Lab Results 12/26/21 12/26/21 12/26/21 Range/Units 13:18 13:22 13:22 WBC 10.7 (4.8-10.8) X10*3/uL RBC 4.71 (4.20-5.50) X10*6/uL Hgb 12.0 (12.0-16.0) g/dl Hct 40.1 (37.0-47.0) % MCV 85.1 (80.0-98.0) fL MCH 25.5 L (27.0-33.0) pg MCHC 29.9 L (31.0-35.0) g/dl RDW 15.0 (11.0-16.0) % Plt Count 292 (160-400) X10*3/uL MPV 11.6 (9.4-12.3) fL Immature Gran % (Auto) 0.3 (0.0-0.4) % Neut % (Auto) 77.0 H (45-73) % Lymph % (Auto) 17.0 L (20-40) % [place] % (Auto) 3.7 (2-11) % Eos % (Auto) 1.7 (0-4) % Baso % (Auto) 0.3 (0-2) % Lymph # (Auto) 1.8 (1.2-4.9) X10*3/uL [place] # (Auto) 0.4 (0.1-1.2) X10*3/uL Eos # (Auto) 0.2 (0.0-0.4) X10*3/uL Baso # (Auto) 0.0 (0.0-0.2) X10*3/uL Abs Immat Gran (auto) 0.03 (0.00-0.03) X10*3/uL Absolute Neuts (auto) 8.3 (2.0-8.3) x10*3/uL Absolute Nucleated RBC 0.000 (0.0-0.012) X10*3/uL Nucleated RBC % (auto) 0.0 (0.0-0.2) /100WBC PT 10.8 (10.0-13.1) SEC INR 0.9 (0.9-1.1) APTT 33.4 (24.1-38.0) SEC Sodium (135-145) mmol/L Potassium (3.3-5.1) mmol/L Chloride (96-108) mmol/L Carbon Dioxide (22-29) mmol/L Anion Gap (12-20) BUN (9-16) mg/dL Creatinine (0.5-1.4) mg/dL Estim Creat Clear Calc Estimated GFR Random Glucose (60-115) mg/dL Estimat Average Glucose mg/dL Hemoglobin A1c % % Calcium (8.4-10.2) mg/dL Magnesium (1.6-2.6) mg/dL Total Bilirubin (0.0-1.0) mg/dL Direct Bilirubin (0.0-0.5) mg/dL AST (5-31) U/L ALT (0-31) U/L Alkaline Phosphatase (39-117) U/L Troponin I High Sens (<3.5-17.0) ng/L Total Protein (6.5-8.0) g/dL Albumin (3.5-5.0) g/dL COVID-19 (NICK) Negative (Negative) COVID-19 Clin Com See Note 12/26/21 12/26/21 12/26/21 Range/Units 13:22 13:22 13:22 WBC (4.8-10.8) X10*3/uL RBC (4.20-5.50) X10*6/uL Hgb (12.0-16.0) g/dl Hct (37.0-47.0) % MCV (80.0-98.0) fL MCH (27.0-33.0) pg MCHC (31.0-35.0) g/dl RDW (11.0-16.0) % Plt Count (160-400) X10*3/uL MPV (9.4-12.3) fL Immature Gran % (Auto) (0.0-0.4) % Neut % (Auto) (45-73) % Lymph % (Auto) (20-40) % [place] % (Auto) (2-11) % Eos % (Auto) (0-4) % Baso % (Auto) (0-2) % Lymph # (Auto) (1.2-4.9) X10*3/uL [place] # (Auto) (0.1-1.2) X10*3/uL Eos # (Auto) (0.0-0.4) X10*3/uL Baso # (Auto) (0.0-0.2) X10*3/uL Abs Immat Gran (auto) (0.00-0.03) X10*3/uL Absolute Neuts (auto) (2.0-8.3) x10*3/uL Absolute Nucleated RBC (0.0-0.012) X10*3/uL Nucleated RBC % (auto) (0.0-0.2) /100WBC PT (10.0-13.1) SEC INR (0.9-1.1) APTT (24.1-38.0) SEC Sodium 142 (135-145) mmol/L Potassium 4.3 (3.3-5.1) mmol/L Chloride 104 (96-108) mmol/L Carbon Dioxide 29 (22-29) mmol/L Anion Gap 13 (12-20) BUN 10 (9-16) mg/dL Creatinine 0.78 (0.5-1.4) mg/dL Estim Creat Clear Calc 112.3 Estimated GFR > 60 Random Glucose 245 H (60-115) mg/dL Estimat Average Glucose 214 mg/dL Hemoglobin A1c % 9.1 % Calcium 9.6 (8.4-10.2) mg/dL Magnesium 1.8 (1.6-2.6) mg/dL Total Bilirubin 0.4 (0.0-1.0) mg/dL Direct Bilirubin 0.2 (0.0-0.5) mg/dL AST 17 (5-31) U/L ALT 23 (0-31) U/L Alkaline Phosphatase 102 (39-117) U/L Troponin I High Sens < 3.5 (<3.5-17.0) ng/L Total Protein 7.3 (6.5-8.0) g/dL Albumin 4.4 (3.5-5.0) g/dL COVID-19 (NICK) (Negative) COVID-19 Clin Com ECG Data Attestation: I personally reviewed and interpreted this ECG as follows: ECG interpretation date: 12/26/21 ECG interpretation time: 13:58 Interpretation: Rate: 93 Rhythm: NSR [place]: normal , LVH Normal P waves. Normal LISA. Normal QRS complex. ST T wave : normal no ILIANA qTC: normal prior studies: no acute ischemia The study has been interpreted contemporaneously by me. . NIH Stroke Scale Internal: Initial- Upon Arrival Level of Consciousness: Alert Level of Consciousness Questions: Answers both questions correctly Level of Consciousness Commands: Performs both tasks correctly Best Gaze: Normal Visual: No visual loss Facial Palsy: Normal Motor Arm (Right): Some effort against gravity Motor Arm (Left): No drift Motor Leg (Right): Drift Motor Leg (Left): No drift Limb Ataxia: Absent Sensory: Normal Best Language: No aphasia Dysarthia: Normal Extinction and Inattention: No abnormality Score: 3 Discharge Plan Discharge Clinical Impression: Acute CVA (cerebrovascular accident) Patient Disposition: Admitted As Inpatient
--- NOTE | 2021-12-26 13:03 | ECG_ITS ---
Test Reason : STROKE SYMPTOM Blood Pressure : / mmHG Vent. Rate : 093 BPM Atrial Rate : 093 BPM P-R Int : 144 ms QRS Dur : 092 ms QT Int : 382 ms P-R-T Axes : 065 009 078 degrees QTc Int : 474 ms Normal sinus rhythm Minimal voltage criteria for LVH, may be normal variant ( R in aVL ) Borderline ECG When compared with ECG of 08-DEC-2019 16:28, T wave inversion no longer evident in Lateral leads Referred By: Giulia Bullard Electronically Signed By:Marlo Bee
[2021-12-26 13:28] LABS: MANUAL DIFF FLAG NO
[2021-12-26 13:37] LABS: Basophils Percent Auto 0.3 % (0-2); Eosinophils Absolute Auto 0.2 X10*3/uL (0.0-0.4); Eosinophils Percent Auto 1.7 % (0-4); Hematocrit 40.1 % (37.0-47.0); INTERNATIONAL NORM RATIO 0.9 (0.9-1.1); Imm Gran Abs Auto 0.03 X10*3/uL (0.00-0.03); Imm Gran Pct Auto 0.3 % (0.0-0.4); Lymphocytes Absolute Auto 1.8 X10*3/uL (1.2-4.9); Mean Corpuscular HGB Conc 29.9 g/dl (31.0-35.0); Mean Corpuscular Hemoglobin 25.5 pg (27.0-33.0); Mean Corpuscular Volume 85.1 fL (80.0-98.0); Mean Platelet Volume 11.6 fL (9.4-12.3); Monocytes Absolute Auto 0.4 X10*3/uL (0.1-1.2); Monocytes Percent Auto 3.7 % (2-11); Neutrophils Absolute Auto 8.3 x10*3/uL (2.0-8.3); Platelet Count 292 X10*3/uL (160-400); Prothrombin Time 10.8 SEC (10.0-13.1); Red Blood Count 4.71 X10*6/uL (4.20-5.50); White Blood Count 10.7 X10*3/uL (4.8-10.8)
[2021-12-26 13:39] LABS: Partial Thromboplastin Time 33.4 SEC (24.1-38.0)
[2021-12-26 13:45] LABS: Estimated Average Glucose 214 mg/dL; Hemoglobin A1c % 9.1 %
[2021-12-26 13:47] LABS: Alanine Aminotransferase 23 U/L (0-31); Albumin Level 4.4 g/dL (3.5-5.0); Alkaline Phosphatase 102 U/L (39-117); Anion Gap 13 (12-20); Aspartate Amino Transferase 17 U/L (5-31); Bilirubin Direct 0.2 mg/dL (0.0-0.5); Bilirubin Total 0.4 mg/dL (0.0-1.0); Blood Urea Nitrogen 10 mg/dL (9-16); Calcium 9.6 mg/dL (8.4-10.2); Carbon Dioxide 29 mmol/L (22-29); Chloride 104 mmol/L (96-108); Creatinine Clr Calc Pharmacy 112.3; Estimated Glomerular Filt Rate > 60; Glucose Random 245 mg/dL (60-115); Magnesium 1.8 mg/dL (1.6-2.6); Potassium 4.3 mmol/L (3.3-5.1); Sodium 142 mmol/L (135-145); Total Protein 7.3 g/dL (6.5-8.0)
[2021-12-26 13:48] LABS: Troponin-I High Sensitivity < 3.5 ng/L (<3.5-17.0)
[2021-12-26 13:49] LABS: COVID-19 Test Negative (Negative)
[2021-12-26] MEDS: Aspirin 325 MG TABLET PO (18:33)
--- NOTE | 2021-12-26 19:15 | PC.NURSE ---
Bedside report received from GALINA Santiago. Patient A&OX4, in no acute distress. Per previous RN, patient passed swallow eval and was given aspirin. Will monitor.
--- NOTE | 2021-12-26 19:40 | PHA.MEDREC ---
Pharmacy Consult ? Medication Reconciliation Pharmacy has completed the medication reconciliation. Spoke to patient, she was an amazing historian.
--- NOTE | 2021-12-26 20:15 | PC.NURSE ---
Brought patient to Rest room and Assisted her.
--- NOTE | 2021-12-26 22:56 | P.HPHOSP_ITS ---
History of Present Illness Date of Service: 12/26/21 Chief Complaint: Right-sided weakness 51-year-old female with a past medical history of hypertension, hyperlipidemia, diabetes, ex-smoker, history of CVA with residual right-sided weakness, recent history of complex atypical endometrial hyperplasia status post hysterectomy; obesity; anxiety, depression presented to the hospital today with a chief complaint of right-sided weakness. Patient reported that she had baseline right-sided weakness since her stroke in 2018; and has been following with PT and OT and is fairly able to ambulate and use of right side of the body. Reports that since last Saturday she noted to have increased weeks status in her right shoulder and right lower extremity; not able to use the right upper and lower extremity as she used to be before. Also reports he has difficulty ambulating, getting up from the bed, moving herself in the bed as well because of the increased weakness; as the symptoms were not improving decided to come to the ER for further evaluation. Denies any falls or trauma. Denies any fever chills cough. Denies any urinary symptoms. Denies any chest pain or palpitations. Review of all other systems is negative except mentioned above ER course: Per ER team patient noted to have right upper and lower extremity weakness; MRI brain showed new acute CVA; patient was given aspirin the uterine mg; patient did not qualify for tPA as she was out of the window. Admitted to the hospital for further management [facility] Medical History Complex atypical endometrial hyperplasia CVA (cerebral vascular accident) Diabetes Fibroids Hypertension Muscle spasm Stroke Family History Father History of liver cancer Mother Hx of thyroid disease Family history of diabetes mellitus Surgical History H/O dilation and curettage Hx of adenoidectomy Hx of tubal ligation Social History Household Members: Spouse and Children Housing: House Alcohol intake: never Patient Tobacco Use Status: Never used Tobacco Cigarette Packs Per Day: 0.5 Cigarettes Per Day: 10.0 Years Smoked: 20 service: No Current occupational status: disabled Meds Allergies Allergy/AdvReac Type Severity Reaction Status Date / Time No Known Allergies Allergy Verified 02/08/21 15:49 [No Known Allergies*] Active Medications: Current Medications Acetaminophen (Acetaminophen 325 Mg Tablet) 650 mg PO Q6H PRN PRN Reason: Pain, Mild (Pain Scale 1-3) Glucose (Glucose Gel 15 Gm Gel..Gram.) 15 gm PO Q15M PRN; Protocol PRN Reason: per Hypoglycemia Standing Ord. Insulin Human Lispro (Insulin Lispro 100 Unit/Ml 3 Ml Vial) 0 unit SUBCUT [facility]; Protocol Melatonin (Melatonin 3 Mg Tablet) 6 mg PO BEDTIME PRN PRN Reason: Insomnia Pharmacy Consult (Consult Rx Perform Med Rec) 1 each MISCELLANE ONCE PRN PRN Reason: Consult order Senna (Sennosides 8.6 Mg Tablet) 17.2 mg PO BEDTIME PRN PRN Reason: Constipation Sodium Chloride (0.9 % Sodium Chloride Flush 3 Ml Syringe) [facility] Home Medications Medication Instructions Recorded Confirmed Last Taken Type aspirin 81 mg tablet,delayed 81 mg PO DAILY 01/31/21 12/26/21 12/26/21 08:00 History release (Adult Low Dose Aspirin) atorvastatin 40 mg tablet 40 mg PO DAILY 01/31/21 12/26/21 Unknown History baclofen 10 mg tablet 10 mg PO BID 01/31/21 12/26/21 12/26/21 08:00 History bupropion HCl 300 mg 24 hr tablet, 300 mg PO DAILY 01/31/21 12/26/21 Unknown History extended release dulaglutide 1.5 mg/0.5 mL 1.5 mg subcut QWEEK 01/31/21 12/26/21 Unknown History subcutaneous pen injector (Trulicity) fluoxetine 20 mg capsule 40 mg PO BEDTIME 01/31/21 12/26/21 Unknown History gabapentin 100 mg capsule 100 mg PO DAILY 01/31/21 12/26/21 12/26/21 08:00 History gabapentin 300 mg capsule 300 mg PO BEDTIME 01/31/21 12/26/21 Unknown History glipizide 5 mg tablet, extended 10 mg PO BID 01/31/21 12/26/21 Unknown History release 24 hr lisinopril 20 mg tablet 20 mg PO DAILY 01/31/21 12/26/21 12/26/21 08:00 History metformin 1,000 mg tablet 1,000 mg PO BID 01/31/21 12/26/21 12/26/21 08:00 History omeprazole 20 mg capsule,delayed 20 mg PO DAILY 01/31/21 12/26/21 12/26/21 08:00 History release prochlorperazine maleate 10 mg 10 mg PO DAILY PRN Nausea 01/31/21 12/26/21 Unknown History tablet cholecalciferol (vitamin D3) 125 125 mcg PO DAILY 12/26/21 12/26/21 Unknown History mcg (5,000 unit) capsule Physical Exam Vital Signs and Narrative: Vital Signs: Last Vital Signs Temp 98.5 F 12/26/21 20:00 Pulse 91 12/26/21 22:46 Resp 20 12/26/21 22:46 BP 187/73 H 12/26/21 22:46 Pulse Ox 96 12/26/21 22:46 O2 Del Method 12/26/21 22:46 BMI result Body Mass Index 44.2 Gen: Appears be in no acute distress HEENT: NCAT, Moist mucosa. Pulmonary: Vesicular breath sounds, fair air entry CVS: Normal S1-S2 Abdomen: BS+, Soft, Nontender Extremities: Warm well perfused Neuro: Alert and awake. Oriented x3; speech is clear; K nose intact; right upper extremity strength 3/5; right lower extremity -barely able to lift the RLE off the bed. Able to flex right lower extremity at the knee; Sensations decreased on the right upper and lower extremities compared to the left side. Results Labs CBC and Chem 7: 12/27/21 04:37 12/27/21 04:37 Labs: Laboratory Results - last 24 hr 12/26/21 12/26/21 12/26/21 13:18 13:22 13:22 MCV 85.1 MCH 25.5 L MCHC 29.9 L RDW 15.0 Plt Count 292 MPV 11.6 Immature Gran % (Auto) 0.3 Neut % (Auto) 77.0 H Lymph % (Auto) 17.0 L [place] % (Auto) 3.7 Eos % (Auto) 1.7 Baso % (Auto) 0.3 Lymph # (Auto) 1.8 [place] # (Auto) 0.4 Eos # (Auto) 0.2 Baso # (Auto) 0.0 Abs Immat Gran (auto) 0.03 Absolute Neuts (auto) 8.3 Absolute Nucleated RBC 0.000 Nucleated RBC % (auto) 0.0 PT 10.8 INR 0.9 APTT 33.4 Anion Gap Estim Creat Clear Calc Estimated GFR Random Glucose Estimat Average Glucose Hemoglobin A1c % Calcium Magnesium Total Bilirubin Direct Bilirubin AST ALT Alkaline Phosphatase Troponin I High Sens Total Protein Albumin COVID-19 (NICK) Negative COVID-19 Clin Com See Note 12/26/21 12/26/21 12/26/21 13:22 13:22 13:22 MCV MCH MCHC RDW Plt Count MPV Immature Gran % (Auto) Neut % (Auto) Lymph % (Auto) [place] % (Auto) Eos % (Auto) Baso % (Auto) Lymph # (Auto) [place] # (Auto) Eos # (Auto) Baso # (Auto) Abs Immat Gran (auto) Absolute Neuts (auto) Absolute Nucleated RBC Nucleated RBC % (auto) PT INR APTT Anion Gap 13 Estim Creat Clear Calc 112.3 Estimated GFR > 60 Random Glucose 245 H Estimat Average Glucose 214 Hemoglobin A1c % 9.1 Calcium 9.6 Magnesium 1.8 Total Bilirubin 0.4 Direct Bilirubin 0.2 AST 17 ALT 23 Alkaline Phosphatase 102 Troponin I High Sens < 3.5 Total Protein 7.3 Albumin 4.4 COVID-19 (NICK) COVID-19 Clin Com Imaging Radiologist's Impressions: Impressions Head CT 12/26/21 13:39 IMPRESSION: Unremarkable exam. Chest X-Ray 12/26/21 14:08 IMPRESSION: Unremarkable examination. Brain MRI 12/26/21 18:00 IMPRESSION: - There is a small acute infarct involving the right ventral medulla. No mass effect and no hemorrhagic transformation. - There is global cerebral volume loss and there is mild chronic microangiopathy. There is cerebellar volume loss as well. Assessment and Plan (1) Acute CVA (cerebrovascular accident): Status: Acute Plan 51-year-old female with a past medical history of hypertension, hyperlipidemia, diabetes, ex-smoker, history of CVA with residual right-sided weakness, recent history of complex atypical endometrial hyperplasia status post hysterectomy; obesity; anxiety, depression presented to the hospital today with a chief complaint of right-sided weakness. Noted to have following Acute CVA: Patient had increased right-sided weakness. Neuro checks Speech and swallow/PT/OT Dysphagia screen Patient received aspirin 320 mg in the ER. MRI brain showed:There is a small acute infarct involving the right ventral medulla. Neurology consult Echo with bubble study Fall precautions Continue home aspirin, statin History of diabetes: Insulin sliding scale. History of depression: Continue home fluoxetine, bupropion DVT prophylaxis: SCD boots Code status: Full code Quality Stroke Does the patient have a stroke diagnosis?: No VTE Prior VTE?: No VTE Risk Level:: Medical - moderate - high VTE Device Contraindication: Treatment Not Indicated VTE Drug Contraindication: N/A - Med Ordered
[2021-12-26 23:55] LABS: Troponin-I High Sensitivity 4.1 ng/L (<3.5-17.0)
[2021-12-27] VITALS (8 sets, daily range): BP systolic 144–188; BP diastolic 66–82; PULSE 86–93; RESP 16–20; TEMP 36.3–37; O2SAT 93–98; BMI 47.9
[2021-12-27] MEDS: 0.9 % Sodium Chloride Flush 3 ML SYRINGE IVFLUSH ×3 (00:07→23:56)
[2021-12-27] MEDS: Acetaminophen 325 MG TABLET 650 MG PO ×3 (03:25→22:49)
[2021-12-27 03:36] LABS: Appearance Urine HAZY; Color Urine YELLOW; Glucose Urine UA 500 MG/DL (NEG); Leukocyte Esterase Urine NEG (NEG); Nitrite Urine NEG (NEG); Specific Gravity - Urine >= 1.030 (1.005-1.025); UACC Culture Trigger NO; Urine Blood NEG (NEG); Urine Ketones 5 MG/DL (NEG); Urine Protein 1+ MG/DL (NEG-TRACE)
[2021-12-27 03:43] LABS: Bacteria Urine TRACE /LPF; RBC Urine 0 /HPF (0); Squamous Epithelial Cell Urine 2+ /LPF; WBC Urine 0 /HPF (0-4)
[2021-12-27 03:44] LABS: Mucus Urine 1+ /LPF; Renal Epithelial Cells Urine TRACE /LPF
[2021-12-27 04:49] LABS: Basophils Percent Auto 0.4 % (0-2); Eosinophils Absolute Auto 0.2 X10*3/uL (0.0-0.4); Eosinophils Percent Auto 1.9 % (0-4); Hematocrit 37.2 % (37.0-47.0); Hemoglobin 11.2 g/dl (12.0-16.0); Imm Gran Abs Auto 0.03 X10*3/uL (0.00-0.03); Imm Gran Pct Auto 0.3 % (0.0-0.4); Lymphocytes Absolute Auto 2.5 X10*3/uL (1.2-4.9); Lymphocytes Percent Auto 23.1 % (20-40); MANUAL DIFF FLAG NO; Mean Corpuscular HGB Conc 30.1 g/dl (31.0-35.0); Mean Corpuscular Hemoglobin 25.6 pg (27.0-33.0); Mean Corpuscular Volume 85.1 fL (80.0-98.0); Mean Platelet Volume 11.7 fL (9.4-12.3); Monocytes Absolute Auto 0.6 X10*3/uL (0.1-1.2); Neutrophils Absolute Auto 7.6 x10*3/uL (2.0-8.3); Neutrophils Percent Auto 69.3 % (45-73); Platelet Count 261 X10*3/uL (160-400); Red Blood Count 4.37 X10*6/uL (4.20-5.50); Red Cell Distribution Width 15.1 % (11.0-16.0); White Blood Count 10.9 X10*3/uL (4.8-10.8)
[2021-12-27 05:21] LABS: Anion Gap 14 (12-20); Blood Urea Nitrogen 11 mg/dL (9-16); Calcium 9.4 mg/dL (8.4-10.2); Carbon Dioxide 29 mmol/L (22-29); Chloride 104 mmol/L (96-108); Cholesterol 140 mg/dL; Creatinine Clr Calc Pharmacy 126.9; Estimated Glomerular Filt Rate > 60; Glucose Random 177 mg/dL (60-115); HDL Cholesterol 29 mg/dL; LDL Cholesterol Calculated 83 mg/dl; Potassium 4.1 mmol/L (3.3-5.1); Sodium 143 mmol/L (135-145); Triglycerides 141 mg/dL
[2021-12-27 07:18] LABS: Glucose, Whole Blood 159 mg/dL (60-115)
--- NOTE | 2021-12-27 07:40 | PC.NURSE ---
Report received from GALINA Hernandes. Patient is alert and oriented. Respirations regular and even. Right hand is mildly contracted due to prior CVA. PT at bedside talking with patient. Remains NPO. Ok per Dr. Martínez to hold insulin due to NPO. Will continue to monitor.
[2021-12-27] MEDS: lisinopriL 20 MG TABLET PO (08:37)
[2021-12-27] MEDS: Baclofen 10 MG TABLET PO ×2 (08:37→21:43)
[2021-12-27] MEDS: buPROPion HCl XL 300 MG TAB.ER.24H PO (08:37)
[2021-12-27] MEDS: Omeprazole 20 MG CAPSULE.DR PO (08:37)
[2021-12-27] MEDS: Gabapentin 100 MG CAPSULE PO (08:38)
[2021-12-27] MEDS: Aspirin Enteric Coated 81 MG TABLET.DR PO (08:38)
[2021-12-27] MEDS: Atorvastatin Calcium 40 MG TABLET PO (10:44)
[2021-12-27 11:21] LABS: Glucose, Whole Blood 220 mg/dL (60-115)
--- NOTE | 2021-12-27 11:22 | MHC.CM.PN ---
Patient admitted s/p CVA, also has hx of CVA. Met with patient regarding dc plan. Delivered IMM. Patient reports she lives with her boyfriend of 30 years and two adult sons. One of her sons is her TRAILER BODY ASSEMBLER, she as over 20 hours per week through [employer]. Boyfriend provides transportation as needed. She ambulates independently without a device in the home and uses a RW out of the home. She reports she received Moderna vaccine x2, no boosters, yet. Assisted patient in completing HCP, she chose her boyfriend as HCP and eldest son as alternate HCP. Provided patient with original and copies and placed a copy in the chart. She reports she has had [facility] in the past and gone to [facility]. Patient is agreeable to referrals if needed. Speech evel complete and patient cleared for swallowing. PT/OT evals pending. DC plan pending. Family able to drive home.
--- NOTE | 2021-12-27 11:58 | MHC.SL.SWA ---
Speech Pathologist Impression: WFL Risk of Aspiration Due to: Neurological Condition Dysphasia Diet Status: Upgrade from NPO to regular diet Liquid Consistency and Strategies for Safe Swallow: Liquid Intake Recommendation: Thin Liquid Intake Strategies: Small Sips Solid Food Consistency: Dietary Recommendations: Regular Additional Modifications to Solid Foods: Patient seen for bedside swallow evaluation this morning while in the ED overflow unit. Patient is edentulous and states that she has not worn her dentures since 2008. Patient reported she eats regular food at home and self selects items she is able to chew, has liquids with meals. No clinical signs of aspiration w/ PO trials. Recommend upgrade from NPO to REGULAR solids with THIN liquids, pills WHOLE with LIQUID. Recommend start diet w/ aspiration precautions d/t acute stroke. She admitted to mildly reduced long-term memory, which she states is chronic. Patient denied any acute changes to her speech, cognition, and swallow. Patient's speech was clear. She engaged in conversation with the clinician with ease. Sent [place] Message to , RN, RD w/ recommendations. Further ST intervention no longer indicated at this level of care. Please re-refer if ORGANIZATION DEVELOPMENT CONSULTANT can be of further assistance. Oral Medication Intake: Whole with Liquid Please contact the pharmacy regarding appropriate crushable or liquid drug formulations that are available whenever modified delivery is recommended. Compensatory Strategies and Precautions to be Taken for Safe Swallow: Sitting Upright (90 deg) Small Bites and Sips Alternate Liquids/Solids Rate of Ingestion Change Avoid Specific Foods Supervision While Eating and Drinking for Safe Swallow: Intermittent Supervision Foods to Avoid: Tough, difficult to chew solids Swallowing Recommended Treatments: Recommendation for Speech: Outpatient Speech Therapy Comment: Patient may benefit from outpatient speech evaluation, as patient reports chronic long-term memory issues. Software Engineer Clinican/Clinical Fellow: No Supervisory Statement: I have reviewed and agree with the student/clinical fellow's documentation: N/A Speech Language Pathologist: Iza Osorio M.A., CCC-ORGANIZATION DEVELOPMENT CONSULTANT
--- NOTE | 2021-12-27 12:52 | P.PNIM_ITS ---
Subjective Subjective Date of Service: 12/27/21 Interval History: cc: right sided weakness interval history:unchanged Cardiovascular Cardiovascular: Reports no additional cardiovascular complaints Gastrointestinal Gastrointestinal: Reports no additional gastrointestinal complaints Physical Exam Vital Signs: Vital Signs: Last Vital Signs Temp 97.6 F 12/27/21 11:38 Pulse 86 12/27/21 11:38 Resp 18 12/27/21 11:38 BP 144/68 H 12/27/21 11:38 Pulse Ox 95 12/27/21 11:38 O2 Del Method 12/27/21 11:38 BMI result Body Mass Index 44.2 General: AO X 3, no acute distress Resp: CTA bilateral, no accessory muscles used CVS: S1,S2,RRR GI: soft, non tender, non distended Neuro: right hemiparesis, alert Psych: appropriate affect, appropriate insight Objective Data Active Medications Acetaminophen (Acetaminophen 325 Mg Tablet) 650 mg PO Q6H PRN PRN Reason: Pain, Mild (Pain Scale 1-3) Last Admin: 12/27/21 08:37 Dose: 650 mg Documented By: BRITTNY Aspirin (Aspirin Enteric Coated 81 Mg Tablet.Dr) 81 mg PO DAILY [facility] Last Admin: 12/27/21 08:38 Dose: 81 mg Documented By: BRITTNY Atorvastatin Calcium (Atorvastatin Calcium 40 Mg Tablet) 40 mg PO DAILY [facility] Last Admin: 12/27/21 10:44 Dose: 40 mg Documented By: BRITTNY Baclofen (Baclofen 10 Mg Tablet) 10 mg PO BID [facility] Last Admin: 12/27/21 08:37 Dose: 10 mg Documented By: BRITTNY Bupropion HCl (Bupropion Hcl Xl 300 Mg Tab.Er.24h) 300 mg PO DAILY [facility] Last Admin: 12/27/21 08:37 Dose: 300 mg Documented By: BRITTNY Dextrose (Dextrose 50 % 25 Gm/50 Ml Syringe) 25 gm IVPUSH Q15M PRN; Protocol PRN Reason: per Hypoglycemia Standing Ord. Fluoxetine HCl (Fluoxetine Hcl 20 Mg Capsule) 40 mg PO BEDTIME [facility] Gabapentin (Gabapentin 300 Mg Capsule) 300 mg PO BEDTIME [facility] Gabapentin (Gabapentin 100 Mg Capsule) 100 mg PO DAILY [facility] Last Admin: 12/27/21 08:38 Dose: 100 mg Documented By: BRITTNY Glucose (Glucose Gel 15 Gm Gel..Gram.) 15 gm PO Q15M PRN; Protocol PRN Reason: per Hypoglycemia Standing Ord. Insulin Human Lispro (Insulin Lispro 100 Unit/Ml 3 Ml Vial) 0.1 - 10 unit SUBCUT QIDACHS [facility]; Protocol Last Admin: 12/27/21 07:39 Dose: Not Given Documented By: MAIKOL Non-Admin Reason: Physician Approved Comments: Per Dr. Jayda stokes due to patient NPO Lisinopril (Lisinopril 20 Mg Tablet) 20 mg PO DAILY [facility]; Protocol Last Admin: 12/27/21 08:37 Dose: 20 mg Documented By: BRITTNY Melatonin (Melatonin 3 Mg Tablet) 6 mg PO BEDTIME PRN PRN Reason: Insomnia Omeprazole (Omeprazole 20 Mg Janelle.) 20 mg PO DAILY [facility] Last Admin: 12/27/21 08:37 Dose: 20 mg Documented By: BRITTNY Pharmacy Consult (Consult Rx Perform Med Rec) 1 each MISCELLANE ONCE PRN PRN Reason: Consult order Senna (Sennosides 8.6 Mg Tablet) 17.2 mg PO BEDTIME PRN PRN Reason: Constipation Sodium Chloride (0.9 % Sodium Chloride Flush 3 Ml Syringe) 3 ml IVFLUSH QSHIFT [facility] Last Admin: 12/27/21 10:45 Dose: Not Given Documented By: BRITTNY Non-Admin Reason: Not In Room Labs CBC & Chem 7: 12/27/21 04:37 12/27/21 04:37 Labs: Laboratory Results - last 24 hr 12/26/21 12/26/21 12/26/21 13:18 13:22 13:22 MCV 85.1 MCH 25.5 L MCHC 29.9 L RDW 15.0 Plt Count 292 MPV 11.6 Immature Gran % (Auto) 0.3 Neut % (Auto) 77.0 H Lymph % (Auto) 17.0 L [place] % (Auto) 3.7 Eos % (Auto) 1.7 Baso % (Auto) 0.3 Lymph # (Auto) 1.8 [place] # (Auto) 0.4 Eos # (Auto) 0.2 Baso # (Auto) 0.0 Abs Immat Gran (auto) 0.03 Absolute Neuts (auto) 8.3 Absolute Nucleated RBC 0.000 Nucleated RBC % (auto) 0.0 PT 10.8 INR 0.9 APTT 33.4 Anion Gap Estim Creat Clear Calc Estimated GFR POC Glucose Random Glucose Estimat Average Glucose Hemoglobin A1c % Calcium Magnesium Total Bilirubin Direct Bilirubin AST ALT Alkaline Phosphatase Troponin I High Sens Total Protein Albumin Triglycerides Cholesterol LDL Cholesterol, Calc HDL Cholesterol Urine Color Urine Appearance Urine pH Ur Specific [place] Urine Protein Urine Glucose (UA) Urine Ketones Urine Blood Urine Nitrite Ur Leukocyte Esterase Urine RBC Urine WBC Ur Squamous Epith Cells Ur Renal Epithelial Cell Urine Bacteria Urine Mucus COVID-19 (NICK) Negative COVID-19 Clin Com See Note 12/26/21 12/26/21 12/26/21 13:22 13:22 13:22 MCV MCH MCHC RDW Plt Count MPV Immature Gran % (Auto) Neut % (Auto) Lymph % (Auto) [place] % (Auto) Eos % (Auto) Baso % (Auto) Lymph # (Auto) [place] # (Auto) Eos # (Auto) Baso # (Auto) Abs Immat Gran (auto) Absolute Neuts (auto) Absolute Nucleated RBC Nucleated RBC % (auto) PT INR APTT Anion Gap 13 Estim Creat Clear Calc 112.3 Estimated GFR > 60 POC Glucose Random Glucose 245 H Estimat Average Glucose 214 Hemoglobin A1c % 9.1 Calcium 9.6 Magnesium 1.8 Total Bilirubin 0.4 Direct Bilirubin 0.2 AST 17 ALT 23 Alkaline Phosphatase 102 Troponin I High Sens < 3.5 Total Protein 7.3 Albumin 4.4 Triglycerides Cholesterol LDL Cholesterol, Calc HDL Cholesterol Urine Color Urine Appearance Urine pH Ur Specific [place] Urine Protein Urine Glucose (UA) Urine Ketones Urine Blood Urine Nitrite Ur Leukocyte Esterase Urine RBC Urine WBC Ur Squamous Epith Cells Ur Renal Epithelial Cell Urine Bacteria Urine Mucus COVID-19 (NICK) COVID-19 Clin Com 12/26/21 12/27/21 12/27/21 23:21 03:30 04:37 MCV 85.1 MCH 25.6 L MCHC 30.1 L RDW 15.1 Plt Count 261 MPV 11.7 Immature Gran % (Auto) 0.3 Neut % (Auto) 69.3 Lymph % (Auto) 23.1 [place] % (Auto) 5.0 Eos % (Auto) 1.9 Baso % (Auto) 0.4 Lymph # (Auto) 2.5 [place] # (Auto) 0.6 Eos # (Auto) 0.2 Baso # (Auto) 0.0 Abs Immat Gran (auto) 0.03 Absolute Neuts (auto) 7.6 Absolute Nucleated RBC 0.000 Nucleated RBC % (auto) 0.0 PT INR APTT Anion Gap Estim Creat Clear Calc Estimated GFR POC Glucose Random Glucose Estimat Average Glucose Hemoglobin A1c % Calcium Magnesium Total Bilirubin Direct Bilirubin AST ALT Alkaline Phosphatase Troponin I High Sens 4.1 Total Protein Albumin Triglycerides Cholesterol LDL Cholesterol, Calc HDL Cholesterol Urine Color YELLOW Urine Appearance HAZY Urine pH 6.0 Ur Specific [place] >= 1.030 H Urine Protein 1+ H Urine Glucose (UA) 500 H Urine Ketones 5 Urine Blood NEG Urine Nitrite NEG Ur Leukocyte Esterase NEG Urine RBC 0 Urine WBC 0 Ur Squamous Epith Cells 2+ Ur Renal Epithelial Cell TRACE Urine Bacteria TRACE Urine Mucus 1+ COVID-19 (NICK) COVID-19 Clin Com 12/27/21 12/27/21 12/27/21 04:37 04:37 07:13 MCV MCH MCHC RDW Plt Count MPV Immature Gran % (Auto) Neut % (Auto) Lymph % (Auto) [place] % (Auto) Eos % (Auto) Baso % (Auto) Lymph # (Auto) [place] # (Auto) Eos # (Auto) Baso # (Auto) Abs Immat Gran (auto) Absolute Neuts (auto) Absolute Nucleated RBC Nucleated RBC % (auto) PT INR APTT Anion Gap 14 Estim Creat Clear Calc 126.9 Estimated GFR > 60 POC Glucose 159 H Random Glucose 177 H Estimat Average Glucose Hemoglobin A1c % Calcium 9.4 Magnesium Total Bilirubin Direct Bilirubin AST ALT Alkaline Phosphatase Troponin I High Sens Total Protein Albumin Triglycerides 141 Cholesterol 140 LDL Cholesterol, Calc 83 HDL Cholesterol 29 Urine Color Urine Appearance Urine pH Ur Specific [place] Urine Protein Urine Glucose (UA) Urine Ketones Urine Blood Urine Nitrite Ur Leukocyte Esterase Urine RBC Urine WBC Ur Squamous Epith Cells Ur Renal Epithelial Cell Urine Bacteria Urine Mucus COVID-19 (NICK) COVID-19 Clin Com 12/27/21 11:10 MCV MCH MCHC RDW Plt Count MPV Immature Gran % (Auto) Neut % (Auto) Lymph % (Auto) [place] % (Auto) Eos % (Auto) Baso % (Auto) Lymph # (Auto) [place] # (Auto) Eos # (Auto) Baso # (Auto) Abs Immat Gran (auto) Absolute Neuts (auto) Absolute Nucleated RBC Nucleated RBC % (auto) PT INR APTT Anion Gap Estim Creat Clear Calc Estimated GFR POC Glucose 220 H Random Glucose Estimat Average Glucose Hemoglobin A1c % Calcium Magnesium Total Bilirubin Direct Bilirubin AST ALT Alkaline Phosphatase Troponin I High Sens Total Protein Albumin Triglycerides Cholesterol LDL Cholesterol, Calc HDL Cholesterol Urine Color Urine Appearance Urine pH Ur Specific [place] Urine Protein Urine Glucose (UA) Urine Ketones Urine Blood Urine Nitrite Ur Leukocyte Esterase Urine RBC Urine WBC Ur Squamous Epith Cells Ur Renal Epithelial Cell Urine Bacteria Urine Mucus COVID-19 (NICK) COVID-19 Clin Com Assessment and Plan (1) Acute CVA (cerebrovascular accident): Status: Acute Plan 51F presented with right sided worsening weakness acute cva acute right vental medulla conitinue asa, statin follow up neuro, PT/OT DM insulin depression fluoexetine, buprioprion morbid obesity weight loss recommended htn lisinopril dvt prophylaxis - lovenox full code reason for continued hospitalization:ongoing stroke work up Quality Stroke Does the patient have a stroke diagnosis?: Yes Reason for No Anti-thrombotic by Day Two: N/A - Med Ordered VTE Prior VTE?: No VTE Risk Level:: Medical - moderate - high VTE Device Contraindication: Treatment Not Indicated VTE Drug Contraindication: N/A - Med Ordered
[2021-12-27] MEDS: Insulin Lispro 100 UNIT/ML 3 ML VIAL SUBCUT ×3 (13:47→21:36)
[2021-12-27] MEDS: Enoxaparin Sodium 40 MG/0.4 ML SYRINGE SUBCUT (15:20)
--- NOTE | 2021-12-27 15:42 | PM.NEUROCN ---
History of Present Illness Data of Consult Service Date: 12/27/21 Primary Care Provider: Guanaco Osuna MD [facility] Reason for consult: Stroke 51 years old woman with underlying history of hypertension and diabetes and obesity who had a left meddulary infarct in 2018 causing right hemiparesis. 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 This time she presented with worsening of right-sided weakness and was noted to have a tiny right middle re ischemic lesion. There was no associated nausea vomiting change of vision or double vision. Review of Systems Review of Systems: No recent headache or cold or flu-like illness PMFSH Past Medical History Medical History Complex atypical endometrial hyperplasia CVA (cerebral vascular accident) Diabetes Fibroids Hypertension Muscle spasm Stroke Family History Family History Father History of liver cancer Mother Hx of thyroid disease Family history of diabetes mellitus Surgical History Surgical History H/O dilation and curettage Hx of adenoidectomy Hx of tubal ligation Social History Social History Alcohol intake: never Patient Tobacco Use Status: Never used Tobacco Cigarette Packs Per Day: 0.5 Cigarettes Per Day: 10.0 Years Smoked: 20 Advance Directives: No Advance Directives Information Provided: No service: No Current occupational status: disabled Meds Allergies Allergy/AdvReac Type Severity Reaction Status Date / Time No Known Allergies Allergy Verified 02/08/21 15:49 [No Known Allergies*] Active Medications: Current Medications Acetaminophen (Acetaminophen 325 Mg Tablet) 650 mg PO Q6H PRN PRN Reason: Pain, Mild (Pain Scale 1-3) Last Admin: 12/27/21 08:37 Dose: 650 mg Aspirin (Aspirin Enteric Coated 81 Mg Tablet.) 81 mg PO DAILY [facility] Last Admin: 12/27/21 08:38 Dose: 81 mg Atorvastatin Calcium (Atorvastatin Calcium 40 Mg Tablet) 40 mg PO DAILY [facility] Last Admin: 12/27/21 10:44 Dose: 40 mg Baclofen (Baclofen 10 Mg Tablet) 10 mg PO BID [facility] Last Admin: 12/27/21 08:37 Dose: 10 mg Bupropion HCl (Bupropion Hcl Xl 300 Mg Tab.Er.24h) 300 mg PO DAILY [facility] Last Admin: 12/27/21 08:37 Dose: 300 mg Dextrose (Dextrose 50 % 25 Gm/50 Ml Syringe) 25 gm IVPUSH Q15M PRN; Protocol PRN Reason: per Hypoglycemia Standing Ord. Enoxaparin Sodium (Enoxaparin Sodium 40 Mg/0.4 Ml Syringe) 40 mg SUBCUT Q24H [facility] Last Admin: 12/27/21 15:20 Dose: 40 mg Fluoxetine HCl (Fluoxetine Hcl 20 Mg Capsule) 40 mg PO BEDTIME [facility] Gabapentin (Gabapentin 300 Mg Capsule) 300 mg PO BEDTIME [facility] Gabapentin (Gabapentin 100 Mg Capsule) 100 mg PO DAILY [facility] Last Admin: 12/27/21 08:38 Dose: 100 mg Glucose (Glucose Gel 15 Gm Gel..Gram.) 15 gm PO Q15M PRN; Protocol PRN Reason: per Hypoglycemia Standing Ord. Insulin Human Lispro (Insulin Lispro 100 Unit/Ml 3 Ml Vial) 0.1 - 10 unit SUBCUT QIDACHS [facility]; Protocol Last Admin: 12/27/21 13:47 Dose: 4 unit Lisinopril (Lisinopril 20 Mg Tablet) 20 mg PO DAILY [facility]; Protocol Last Admin: 12/27/21 08:37 Dose: 20 mg Melatonin (Melatonin 3 Mg Tablet) 6 mg PO BEDTIME PRN PRN Reason: Insomnia Omeprazole (Omeprazole 20 Mg Capsule.Dr) 20 mg PO DAILY [facility] Last Admin: 12/27/21 08:37 Dose: 20 mg Pharmacy Consult (Consult Rx Perform Med Rec) 1 each MISCELLANE ONCE PRN PRN Reason: Consult order Senna (Sennosides 8.6 Mg Tablet) 17.2 mg PO BEDTIME PRN PRN Reason: Constipation Sodium Chloride (0.9 % Sodium Chloride Flush 3 Ml Syringe) 3 ml IVFLUSH QSHIFT [facility] Last Admin: 12/27/21 10:45 Dose: Not Given Home Medications Medication Instructions Recorded Confirmed Last Taken Type aspirin 81 mg tablet,delayed 81 mg PO DAILY 01/31/21 12/26/21 12/26/21 08:00 History release (Adult Low Dose Aspirin) atorvastatin 40 mg tablet 40 mg PO DAILY 01/31/21 12/26/21 Unknown History baclofen 10 mg tablet 10 mg PO BID 01/31/21 12/26/21 12/26/21 08:00 History bupropion HCl 300 mg 24 hr tablet, 300 mg PO DAILY 01/31/21 12/26/21 Unknown History extended release dulaglutide 1.5 mg/0.5 mL 1.5 mg subcut QWEEK 01/31/21 12/26/21 Unknown History subcutaneous pen injector (Trulicity) fluoxetine 20 mg capsule 40 mg PO BEDTIME 01/31/21 12/26/21 Unknown History gabapentin 100 mg capsule 100 mg PO DAILY 01/31/21 12/26/21 12/26/21 08:00 History gabapentin 300 mg capsule 300 mg PO BEDTIME 01/31/21 12/26/21 Unknown History glipizide 5 mg tablet, extended 10 mg PO BID 01/31/21 12/26/21 Unknown History release 24 hr lisinopril 20 mg tablet 20 mg PO DAILY 01/31/21 12/26/21 12/26/21 08:00 History metformin 1,000 mg tablet 1,000 mg PO BID 01/31/21 12/26/21 12/26/21 08:00 History omeprazole 20 mg capsule,delayed 20 mg PO DAILY 01/31/21 12/26/21 12/26/21 08:00 History release prochlorperazine maleate 10 mg 10 mg PO DAILY PRN Nausea 01/31/21 12/26/21 Unknown History tablet cholecalciferol (vitamin D3) 125 125 mcg PO DAILY 12/26/21 12/26/21 Unknown History mcg (5,000 unit) capsule Physical Exam Vital Signs: Vital Signs: Last Vital Signs Temp 97.6 F 12/27/21 11:38 Pulse 86 12/27/21 11:38 Resp 18 12/27/21 11:38 BP 144/68 H 12/27/21 11:38 Pulse Ox 95 12/27/21 11:38 O2 Del Method 12/27/21 11:38 BMI result Body Mass Index 44.2 Neuro: Other: Alert and awake with normal spontaneity of speech fluency comprehension and affect. She was moderately obese. Face was symmetrical. Visual fischer are full. Extraocular muscles were intact. She has moderate to severe right hemiparesis. Deep tendon reflexes are absent with flat plantars Results Labs CBC & Chem 7: 12/27/21 04:37 12/27/21 04:37 Labs: Short CBC 12/27/21 Range/Units 04:37 WBC 10.9 H (4.8-10.8) X10*3/uL Hgb 11.2 L (12.0-16.0) g/dl Hct 37.2 (37.0-47.0) % Plt Count 261 (160-400) X10*3/uL BMP 12/27/21 04:37 Sodium 143 Potassium 4.1 Chloride 104 Carbon Dioxide 29 BUN 11 Creatinine 0.69 Calcium 9.4 Urine 12/27/21 Range/Units 03:30 Urine Color YELLOW Urine Appearance HAZY Urine pH 6.0 (5.0-8.0) Ur Specific [place] >= 1.030 H (1.005-1.025) Urine Protein 1+ H (NEG-TRACE) MG/DL Urine Glucose (UA) 500 H (NEG) MG/DL As reported in HPI Assessment and Plan (1) Acute CVA (cerebrovascular accident): Status: Acute 51 years old woman with a small medullary acute ischemic infarction close to the same area she had previous infarction in 2018 causing right hemiparesis. 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 Likely cause of stroke was same from atherohrombotic disease. I recommend repeating CTA to look at a basilar artery. Treatment [place], Plavix 75 mg daily and baby aspirin daily for couple of months, blood pressure control, and statin are recommended. She would need physical therapy and occupational therapy help for proper management. Procedures Date of Service Date of Service: 12/27/21
--- NOTE | 2021-12-27 16:21 | MHC.STROKE ---
12/26/21 1236 WALK-IN, C/O INCREASED RIGHT SIDED WEAKNESS, SEEN BY PROVIDER, NIHSS = 3, LKW 12/24/21 WORSENED BY 12/25/21 1800. OUT OF THE WINDOW FOR TPA-ALTEPLASE. CT HEAD DONE AT 1329, NO BLEED, MRI DONE + RIGHT VENTRICLE MEDULLA ISCHEMIC STROKE, REVIEWED WITH DR. WEST. HE SAW HER IN 2018 WITH HE R PRIOR STROKE. AT THAT TIE SHE WENT TO [facility] AND WOULD CONSIDER GOING THERE AGAIN. WE DISCUSSED HER DIAGNOSIS AND LOCATION OF THIS NEW STROKE. PMH: OF DM A1C 9.1, HTN, HLD, SHE WOULD BE INTERESTED IN DISCUSSING AN OPERATING ROOM SCHEDULER WITH DR LOCK AND TRYING TO MANAGE HER BP, SHE MAY ALSO LIKE TO SPEAK WITH A [place] TECHNICIAN. SHE IS MOTIVATED TO IMPROVE HER HEALTH AND PREVENT FUTURE STROKES. I ANSWERED ALL OF HER QUESTIONS AND REVIEWED THE STROKE EDUCATION BOOKLET. I WILL CONTINUE TO FOLLOW.
[2021-12-27] MEDS: iohexoL 350 MG/ML 100 ML INFUS..BTL IV (17:19)
[2021-12-27 17:26] LABS: Glucose, Whole Blood 321 mg/dL (60-115)
[2021-12-27 21:32] LABS: Glucose, Whole Blood 210 mg/dL (60-115)
[2021-12-27] MEDS: FLUoxetine HCl 20 MG CAPSULE 40 MG PO (21:37)
[2021-12-27] MEDS: Gabapentin 300 MG CAPSULE PO (21:38)
[2021-12-27 22:14] LABS: Glucose, Whole Blood 208 mg/dL (60-115)
[2021-12-28 00:05] VITALS: BP 141/69
[2021-12-28 03:02] VITALS: BP 133/83; PULSE 84; RESP 16; TEMP 36.7; O2SAT 93
[2021-12-28 07:23] LABS: Glucose, Whole Blood 200 mg/dL (60-115)
--- NOTE | 2021-12-28 07:30 | CA_ITS ---
Transthoracic Echocardiogram Patient (Last, First, Middle): Loraine Mathias, Gender: Female Date of : 1970 Age: 51 Procedure Date: 12/28/2021 Procedure Type: Transthoracic Echocardiogram Location: [facility] – [place] Height: 165.1 cm Weight: 120.66 kg BSA: 2.23 m2 Heart Rate: 89 bpm BP: 166 / 66 mmHg Sap Bw Bi Developer: SB Referring MD: Ismael Jiménez MD Symptoms: CVA; bubble study Study Quality: Fair/Contrast ECG Rhythm: Sinus Conclusions: - Normal left ventricular size and systolic function. There is mildly increased left ventricular wall thickness. The visually estimated ejection fraction is between 60-65%. - Normal right ventricular cavity size and systolic function. - The left atrium is mildly dilated. There is no evidence of interatrial shunt by color Doppler and contrast. - There is mild dilatation of the ascending aorta measuring 3.40 cm. Findings Procedure Information Contrast agent, definity, is being given per protocol without apparent complications. Left Ventricle Normal left ventricular size and systolic function. There is mildly increased left ventricular wall thickness. The visually estimated ejection fraction is between 60-65%. There is no evidence of regional wall motion abnormalities. Diastolic function is indeterminate on the basis of available data. E/E prime ratio is between 8 and 15 consistent with indeterminate filling pressures. Right Ventricle Normal right ventricular cavity size and systolic function. Atria The left atrium is mildly dilated. There is no evidence of interatrial shunt by color Doppler and contrast. Aortic Valve Normal aortic valve structure and function. There is no aortic valve stenosis. There is no aortic valve regurgitation. Mitral Valve Normal mitral valve structure and function. There is no mitral valve regurgitation. There is no mitral valve stenosis. Pulmonic Valve The pulmonic valve is likely normal. Tricuspid Valve Normal tricuspid valve structure and function. There is trace tricuspid valve regurgitation. Tricuspid regurgitation envelope is inadequate for calculation of right ventricular systolic pressure. Indeterminate right atrial pressure. Great Vessels There is mild dilatation of the ascending aorta measuring 3.40 cm. The visualized portions of the pulmonary artery and branches are normal. Venous The inferior vena cava was not well visualized. Pericardium/Pleural There is no evidence of pericardial effusion. Measurements 2D Linear Measurements IVSd: 1.19 0.6-0.9/0.6-1.0 cm LVIDd: 5.04 3.9-5.3/4.2-5.9 cm LVIDd Index: 2.26 2.4-3.2/2.2-3.1 cm/m2 LVIDs: 3.85 2.0-3.6 cm LVPWd: 0.98 0.7-1.1 cm LA Diam: 3.70 2.7-3.8/3.0-4.0 cm LAIDs Index: 1.66 1.5-2.3 cm/m2 LV Mass: 256.17 67-162/88-224 g LV Mass Index: 114.87 43-95/49-115 g/m2 LVOT Diam: 2.40 3.0+(-)1.3 cm 2D Systolic Function EF 4C: 69.20 >55% EF 2C: 69.90 >55% EF BiP: 69.40 >55% Mitral Valve MV Pk E: 0.75 MV PK A: 0.72 MV Decel Time: 107.00 E/A: 1.00 E'Lateral: 9.46 E'Medial: 7.40 E/E' Med: 10.20 E/E' Lat: 8.00 PHT: 31.00 MVA PHT: 7.10 Decel Hawkins: 7.06 Aortic Valve AoV Pk Abdias: 1.15 AoV Mn Abdias: 0.84 AoV VTI: 0.24 AoV Pk Grad: 5.00 Aov Mn Grad: 3.00 CHANDU Cont.VTI: 3.29 LVOT LVOT Pk Abdias: 0.82 LVOT Mn Abdias: 0.60 LVOT VTI: 0.18 LVOT Pk Grad: 3.00 LVOT Mn Grad: 2.00 LVOT Diam: 2.40 LVOT Area: 4.52 Diastolic Function MV Pk E: 0.75 MV Pk A: 0.72 E/A: 1.00 E'Medial: 7.40 E/E' Med: 10.20 E' Laterial: 9.46 E/E' Lat: 8.00 Right Ventricle TAPSE (mm): 19.30 TVS' Abdias: 11.90 Great Vessels Aorta Sinus of Valsalva: 3.00 2.0-3.5 cm Ao Asc: 3.40 2.1-3.4 cm Ao Arch: 2.80 Ao Desc: 2.30 Pulmonary Valve PV Pk Abdias: 1.05 Peak PV Grad: 4.00 Updated in Other Vendor System with Status of Final Marlo Bee MD electronically signed on 12/29/2021 6:06:30 PM with status of Final
[2021-12-28 07:40] VITALS: BP 169/87; PULSE 89; RESP 18; TEMP 37.1; O2SAT 94
[2021-12-28] MEDS: Aspirin Enteric Coated 81 MG TABLET.DR PO (08:54)
[2021-12-28] MEDS: buPROPion HCl XL 300 MG TAB.ER.24H PO (08:55)
[2021-12-28] MEDS: Gabapentin 100 MG CAPSULE PO (08:55)
[2021-12-28] MEDS: Atorvastatin Calcium 40 MG TABLET PO (08:55)
[2021-12-28] MEDS: lisinopriL 20 MG TABLET PO (08:55)
[2021-12-28] MEDS: Insulin Lispro 100 UNIT/ML 3 ML VIAL SUBCUT ×2 (08:55→12:10)
[2021-12-28] MEDS: Baclofen 10 MG TABLET PO (08:55)
[2021-12-28] MEDS: 0.9 % Sodium Chloride Flush 3 ML SYRINGE IVFLUSH (08:55)
[2021-12-28] MEDS: Omeprazole 20 MG CAPSULE.DR PO (08:55)
[2021-12-28] MEDS: Clopidogrel Bisulfate 75 MG TABLET PO (08:55)
[2021-12-28] MEDS: Acetaminophen 325 MG TABLET 650 MG PO (10:01)
--- NOTE | 2021-12-28 11:05 | PM.DS ---
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 Patient reported that she had baseline right-sided weakness since her stroke in 2018; and has been following with PT and OT and is fairly able to ambulate and use of right side of the body.? Reports that since last Saturday she noted to have increased weeks status in her right shoulder and right lower extremity; not able to use the right upper and lower extremity as she used to be before.? Also reports he has difficulty ambulating, getting up from the bed, moving herself in the bed as well because of the increased weakness; as the symptoms were not improving decided to come to the ER for further evaluation.? Denies any falls or trauma.? Denies any fever chills cough.? Denies any urinary symptoms.? Denies any chest pain or palpitations.? Review of all other systems is negative except mentioned above ER course: Per ER team patient noted to have right upper and lower extremity weakness; MRI brain showed new acute CVA; patient was given aspirin the uterine mg; patient did not qualify for tPA as she was out of the window.? Admitted to the hospital for further management hospital course: Patient was admitted for acute CVA of right ventral medulla, CTA showed right greater than left posterior cerebral artery stenosis, recommendations from Neurology were to continue aspirin and statin and add Plavix for a couple months, she was seen by physical therapy recommended acute inpatient rehab. Patient's deficits are fairly unchanged. For diabetes he will continue insulin, for depression she will continue fluoxetine and bupropion, for morbid obesity weight loss is recommended. For hypertension show continue lisinopril. Time Spent with Patient Time attestation: Total time spent providing and/or coordinating discharge services: Discharge coordination time: Greater than 30 minutes Quality: Safe Use of Opioids Does Pt have an Active Cancer Diagnosis on the Problem List?: No Quality: Stroke Does the patient have a stroke diagnosis?: Yes Reason for No Anti-thrombotic at DC: N/A - Med Ordered Reason for No Anticoagulant at DC: Not indicated Reason Not Initiating IV-Tpa: Not indicated Reason for No Anti-thrombotic by Day Two: N/A - Med Ordered Reason for No Statin at DC: N/A - Med Ordered Physical Exam Vital Signs: Vital Signs: Last Vital Signs Temp 98.8 F 12/28/21 07:40 Pulse 89 12/28/21 07:40 Resp 18 12/28/21 07:40 BP 169/87 H 12/28/21 07:40 Pulse Ox 94 12/28/21 07:40 O2 Del Method 12/28/21 07:40 BMI result Body Mass Index 47.9 General: AO X 3, no acute distress Resp: CTA bilateral, no accessory muscles used CVS: S1,S2,RRR GI: soft, non tender, non distended Neuro: right hemiparesis, alert Psych: appropriate affect, appropriate insight DS: Data Data Completed and Pending Labs on day of discharge: Laboratory Results - last 24 hr 12/27/21 12/27/21 12/27/21 11:10 17:22 21:29 POC Glucose 220 H 321 H 210 H 12/27/21 12/28/21 22:11 07:14 POC Glucose 208 H 200 H Discharge Plan Discharge Patient Disposition: Xfer Inpatient Rehab Fac Discharge Diagnosis: cva Referrals: Guanaco Osuna MD [Primary Care Provider] - 1 Week Discharge Medications: New clopidogrel 75 mg Tablet 75 mg PO DAILY Qty: 0 0RF Continued cholecalciferol (vitamin D3) 125 mcg (5,000 unit) Capsule 125 mcg PO DAILY Rx Instructions: saturday thru saturday atorvastatin 40 mg tablet 40 mg PO DAILY bupropion HCl 300 mg tablet extended release 24 hr 300 mg PO DAILY omeprazole 20 mg capsule,delayed release(DR/EC) 20 mg PO DAILY gabapentin 300 mg capsule 300 mg PO BEDTIME baclofen 10 mg tablet 10 mg PO BID gabapentin 100 mg capsule 100 mg PO DAILY Trulicity 1.5 mg/0.5 mL pen injector 1.5 mg subcut QWEEK fluoxetine 20 mg capsule 40 mg PO BEDTIME metformin 1,000 mg tablet 1,000 mg PO BID glipizide 5 mg tablet extended release 24hr 10 mg PO BID lisinopril 20 mg tablet 20 mg PO DAILY prochlorperazine maleate 10 mg tablet 10 mg PO DAILY PRN (Reason: Nausea) aspirin [Adult Low Dose Aspirin] 81 mg tablet,delayed release (DR/EC) 81 mg PO DAILY Discharge Orders: Discharge Order (Routine); Ordered 12/28/21 Ordered By: Len Martínez Diet: Advance to usual diet Activity on Discharge: As tolerated Stand Alone Forms: Patient Portal Discharge page Care Plan Goals: prevent further strokes, rehab from current stroke Health Concerns: cva Plan of Treatment: added plavix 75mg, in a couple months can discontinue one of the antiplatelets, acute in patient rehab Assessment: see above
[2021-12-28 11:38] LABS: Glucose, Whole Blood 303 mg/dL (60-115)
[2021-12-28 11:51] VITALS: BP 176/76; PULSE 98; RESP 18; TEMP 36.3; O2SAT 97
--- NOTE | 2021-12-28 12:13 | MHC.CM.PN ---
Patient has been medically cleared for dc today to Acute Rehab. Patient will dc to her first choice facility- [facility] today at 2PM, via [facility]. Patient is aware of and in agreement with the dc plan and will inform her family herself of the plan.
== END 2021-12-28 14:14 | DRG 65 ==
LOC: HO.ED 18:25 → HO.EDOVER 23:00 → HO.IMC 12-27 17:10
PROVIDERS: Admitting Provider Hospitalist; Emergency Provider Emergency Medicine; PCP Internal Medicine; Visit Provider Internal Medicine
DX: I63.89 Other cerebral infarction (principal); I69.351 Hemiplegia and hemiparesis following cerebral infarction affecting right dominant side; Z68.42 Body mass index [BMI] 45.0-49.9, adult; R29.703 NIHSS score 3; I10 Essential (primary) hypertension; E66.01 Morbid (severe) obesity due to excess calories; E78.5 Hyperlipidemia, unspecified; Z20.822 Contact with and (suspected) exposure to COVID-19; Z87.891 Personal history of nicotine dependence; Z98.51 Tubal ligation status; Z79.02 Long term (current) use of antithrombotics/antiplatelets; Z79.84 Long term (current) use of oral hypoglycemic drugs; Z79.82 Long term (current) use of aspirin; Z79.899 Other long term (current) drug therapy
CPT/HCPCS: 36415; 70450; 70496; 70498; 70551; 71045; 80048; 80061; 80076; 81001; 82947; 83036; 83735; 84484; 85025; 85610; 85730; 87635; 92610; 93005; 93306; 97110; 97116; 97162; 97166; 99285; J1650; Q9957; Q9967

== ENCOUNTER 2022-04-13 08:48 | Outpatient (REF) | payer MEDICARE, MEDICAID, SELFPAY ==
[2022-04-13 09:02] LABS: MANUAL DIFF FLAG NO
[2022-04-13 09:23] LABS: Basophils Absolute Auto 0.1 X10*3/uL (0.0-0.2); Basophils Percent Auto 0.6 % (0-2); Eosinophils Absolute Auto 0.2 X10*3/uL (0.0-0.4); Eosinophils Percent Auto 2.4 % (0-4); Hematocrit 37.3 % (37.0-47.0); Hemoglobin 11.3 g/dl (12.0-16.0); Imm Gran Abs Auto 0.02 X10*3/uL (0.00-0.03); Imm Gran Pct Auto 0.2 % (0.0-0.4); Lymphocytes Absolute Auto 1.9 X10*3/uL (1.2-4.9); Lymphocytes Percent Auto 22.4 % (20-40); Mean Corpuscular HGB Conc 30.3 g/dl (31.0-35.0); Mean Corpuscular Volume 85.9 fL (80.0-98.0); Mean Platelet Volume 11.5 fL (9.4-12.3); Monocytes Absolute Auto 0.4 X10*3/uL (0.1-1.2); Monocytes Percent Auto 4.7 % (2-11); Neutrophils Absolute Auto 5.9 x10*3/uL (2.0-8.3); Neutrophils Percent Auto 69.7 % (45-73); Platelet Count 271 X10*3/uL (160-400); Red Blood Count 4.34 X10*6/uL (4.20-5.50); Red Cell Distribution Width 14.1 % (11.0-16.0); White Blood Count 8.5 X10*3/uL (4.8-10.8)
[2022-04-13 09:29] LABS: Estimated Average Glucose 186 mg/dL; Hemoglobin A1c % 8.1 %
[2022-04-13 09:41] LABS: Cholesterol 123 mg/dL; HDL Cholesterol 31 mg/dL; LDL Cholesterol Calculated 64 mg/dl; Triglycerides 142 mg/dL
[2022-04-13 10:00] LABS: Creatinine Urine 51.66 mg/dL; Microalbum/Creatinine Ratio Ur 176.1 ug/mg cr
== END 2022-04-13 08:49 | disposition home or self-care (01) ==
LOC: HO.LAB 08:48
PROVIDERS: PCP Internal Medicine; Visit Provider Internal Medicine
DX: I10 Essential (primary) hypertension (principal); E11.9 Type 2 diabetes mellitus without complications
CPT/HCPCS: 36415; 80061; 82043; 83036; 85025

== ENCOUNTER 2022-05-10 14:00 | Outpatient (RCR) | payer MEDICARE, MEDICAID, SELFPAY | END 2022-06-12 10:14 | disposition home or self-care (01) | LOC: HO.PT 14:00 | PROVIDERS: PCP Internal Medicine; Visit Provider Physical Medicine & Rehabilitation | DX: I63.9 Cerebral infarction, unspecified (principal) | CPT/HCPCS: 97110; 97112; 97116; 97162; 97530 ==

== ENCOUNTER 2022-05-21 13:00 | Outpatient (RCR) | payer MEDICARE, MEDICAID, SELFPAY ==
--- NOTE | 2022-01-22 14:06 | MHC.OT.EP ---
[address] [phone] Occupational Therapy Plan of Care Date of Evaluation: 01/22/22 Diagnosis: TIA Assessment: 51 yo female w/ hx of stroke with right sided weakness, presents to OT w/ continued weakness and increased tone, hoping to get back into regular routine for HEP and general increased use of right hand to participate in daily activities. At baseline she has been fairly sedentary since initial stroke 2018, she has DME and her son is her live-in [employer], but she has been able to use right hand to assist for holding containers.objects. On assessment, her range and strength are grossly WFL, but tone and coordination are primary limitation due to decreased control. She will benefit from brief course of OT to reinstate HEP with goal of Ind w/ self management of range, massage, and activity modifications. Frequency and Duration: The patient will be seen 1x/wk for 4 weeks Short Term Goals: Ind w/ self stretching to RUE Pt to demo good use of right hand to hold containers while opening w/ left hand Pt to report good incorporation of right hand w/ light self care tasks Ind w/ self massage, stretching, TENS for muscle relaxation and tone reduction Fci Goals: same as above Treatment Plan: Therapeutic Exercise Therapeutic Activity Home Exercise Program Neuro Re-ed Patient Education Edema Control ADL Training NMES MHP Soft Tissue Mobilization Kinesiotaping Electronically Signed By: Angelika Lemons OTR/L CHT Please Sign and return to therapist. Thank you once again for your referral.
== END 2022-05-24 14:05 | disposition home or self-care (01) ==
LOC: HO.OT 13:00
PROVIDERS: PCP Internal Medicine; Visit Provider Physical Medicine & Rehabilitation
DX: I63.9 Cerebral infarction, unspecified (principal)
CPT/HCPCS: 97014; 97110; 97112; 97140; 97166; 97530

== ENCOUNTER 2022-09-27 16:34 | Outpatient (REF) | payer MEDICARE, MEDICAID, SELFPAY ==
--- NOTE | ~2022-09-27 | XR_ITS ---
EXAMINATION: XR WRIST, RIGHT XR FOREARM, RIGHT CLINICAL INFORMATION: Pain right forearm and wrist. COMPARISON: None TECHNIQUE: Right wrist is imaged in 4 views. Right forearm is imaged in 3 views. There are total of 8 views. FINDINGS: There is a fracture involving the distal radial metaphysis, likely comminuted and extending to the distal radial articular surface. No significant angulation or displacement. There is subtle lucency in the subchondral distal radius without matrix mineralization, possibly a cyst. There is subtle decreased mineralization in the distal ulnar without matrix mineralization. There is a probable cortical avulsion from the ulnar styloid. The ulnar variance is neutral. There is no dislocation or visible carpal fracture. Small subchondral cyst seen base fifth metacarpal. Radiographs of the forearm demonstrate fracture radial head and neck with mild impaction. No dislocation. The AP and lateral views of both slightly obliqued, not orthogonal. XR/XR forearm RT 2V IMPRESSION: -Fracture distal radial metaphysis likely pathologic, involving a subchondral cyst and extending to articular surface. Avulsion fracture ulnar styloid. -Fracture radial head and neck with impaction. No dislocation.
--- NOTE | ~2022-09-27 | XR_ITS ---
EXAMINATION: XR WRIST, RIGHT XR FOREARM, RIGHT CLINICAL INFORMATION: Pain right forearm and wrist. COMPARISON: None TECHNIQUE: Right wrist is imaged in 4 views. Right forearm is imaged in 3 views. There are total of 8 views. FINDINGS: There is a fracture involving the distal radial metaphysis, likely comminuted and extending to the distal radial articular surface. No significant angulation or displacement. There is subtle lucency in the subchondral distal radius without matrix mineralization, possibly a cyst. There is subtle decreased mineralization in the distal ulnar without matrix mineralization. There is a probable cortical avulsion from the ulnar styloid. The ulnar variance is neutral. There is no dislocation or visible carpal fracture. Small subchondral cyst seen base fifth metacarpal. Radiographs of the forearm demonstrate fracture radial head and neck with mild impaction. No dislocation. The AP and lateral views of both slightly obliqued, not orthogonal. XR/XR wrist RT min 3V IMPRESSION: -Fracture distal radial metaphysis likely pathologic, involving a subchondral cyst and extending to articular surface. Avulsion fracture ulnar styloid. -Fracture radial head and neck with impaction. No dislocation.
== END 2022-09-27 16:35 | disposition home or self-care (01) ==
LOC: HO.XRAY 16:34
PROVIDERS: PCP Internal Medicine; Visit Provider Internal Medicine
DX: M25.531 Pain in right wrist (principal); Z91.81 History of falling
CPT/HCPCS: 73090; 73110

== ENCOUNTER 2022-10-02 09:33 | Outpatient (REF) | payer MEDICARE, MEDICAID, SELFPAY ==
--- NOTE | ~2022-10-02 | XR_ITS ---
EXAMINATION: XR ELBOW, RIGHT CLINICAL INFORMATION: Pain COMPARISON: None available. TECHNIQUE: Four views of the right elbow. FINDINGS: Acute intra-articular impacted fracture of the radial head. There are several osseous fragments dorsal to the elbow, may reflect additional fracture fragments of uncertain donor site. Soft tissue swelling. Displacement of the fat pads compatible with elbow effusion. XR/XR elbow RT min 3V IMPRESSION: 1. Acute intra-articular impacted fracture of the radial head. 2. There are several osseous fragments dorsal to the elbow, which may reflect additional fracture fragments of uncertain donor site. Recommend correlation with CT elbow. 3. Soft tissue swelling. 4. Elbow effusion.
--- NOTE | ~2022-10-02 | XR_ITS ---
EXAMINATION: XR wrist RT w scaphoid CLINICAL INFORMATION: Pain COMPARISON: None TECHNIQUE: 3 views of the hand FINDINGS: Acute intra-articular comminuted fracture of the distal radius, with dorsal angulation of the distal fracture fragments.. Acute intra-articular fracture of the distal ulna, mildly displaced and mildly comminuted. Mild degenerative changes of the wrist. Patchy osteopenia. Diffuse soft tissue swelling. XR/XR wrist RT w scaphoid IMPRESSION: 1. Acute intra-articular comminuted fracture of the distal radius, with dorsal angulation of the distal fracture fragments. 2. Acute intra-articular fracture of the distal ulna, mildly displaced and mildly comminuted.
== END 2022-10-02 09:34 | disposition home or self-care (01) ==
LOC: HO.HOSX 09:33
PROVIDERS: Visit Provider Physician Assistant
DX: S52.121A Displaced fracture of head of right radius, initial encounter for closed fracture (principal); S52.501A Unspecified fracture of the lower end of right radius, initial encounter for closed fracture; S52.611A Displaced fracture of right ulna styloid process, initial encounter for closed fracture
CPT/HCPCS: 73080; 73110; 99202

== ENCOUNTER 2022-10-25 10:21 | Outpatient (REF) | payer MEDICARE, MEDICAID, SELFPAY ==
--- NOTE | ~2022-10-25 | XR_ITS ---
EXAMINATION: XR WRIST, RIGHT CLINICAL INFORMATION: Pain COMPARISON: None available. TECHNIQUE: PA, lateral, and oblique views of the right wrist. FINDINGS: There is a comminuted distal radial fracture with intra-articular extension. There is distal ulnar fracture with intra-articular extension. Both these fractures are stable to previous exam. There is mild osteopenia. XR/XR wrist RT min 3V IMPRESSION: Stable intra-articular comminuted fracture distal radius and distal ulna.
== END 2022-10-25 10:22 | disposition home or self-care (01) ==
LOC: HO.HOSX 10:21
PROVIDERS: Visit Provider Physician Assistant
DX: S52.611A Displaced fracture of right ulna styloid process, initial encounter for closed fracture (principal); S52.121A Displaced fracture of head of right radius, initial encounter for closed fracture
CPT/HCPCS: 29085; 73110; 99212

== ENCOUNTER 2022-11-29 08:31 | Outpatient (REF) | payer MEDICARE, MEDICAID, SELFPAY ==
--- NOTE | ~2022-11-29 | XR_ITS ---
EXAMINATION: XR WRIST, RIGHT CLINICAL INFORMATION: Pain COMPARISON: Wrist radiographs 10/25/2022 TECHNIQUE: PA, lateral, and oblique views of the right wrist. FINDINGS: Redemonstration of a comminuted intra-articular fracture of the distal radius in slightly improved alignment. Redemonstration of an avulsed ulnar styloid avulsion fracture. No raúl bridging bony callus formation. Disuse osteopenia. Atherosclerotic vascular calcification. XR/XR wrist RT min 3V IMPRESSION: 1. Redemonstration of a comminuted intra-articular fracture of the distal radius in slightly improved alignment. Redemonstration of an avulsed ulnar styloid avulsion fracture. No raúl bridging bony callus formation. 2. Disuse osteopenia.
== END 2022-11-29 08:32 | disposition home or self-care (01) ==
LOC: HO.HOSX 08:31
PROVIDERS: Visit Provider Physician Assistant
DX: S52.611A Displaced fracture of right ulna styloid process, initial encounter for closed fracture (principal); S52.121A Displaced fracture of head of right radius, initial encounter for closed fracture
CPT/HCPCS: 73110; 99212

== ENCOUNTER 2022-12-17 14:25 | Outpatient (REF) | payer MEDICARE, MEDICAID, SELFPAY ==
[2022-12-17 14:59] LABS: MANUAL DIFF FLAG NO
[2022-12-17 15:38] LABS: Basophils Absolute Auto 0.1 X10*3/uL (0.0-0.2); Basophils Percent Auto 0.5 % (0-2); Eosinophils Absolute Auto 0.5 X10*3/uL (0.0-0.4); Eosinophils Percent Auto 5.4 % (0-4); Hematocrit 37.7 % (37.0-47.0); Hemoglobin 11.5 g/dl (12.0-16.0); Imm Gran Abs Auto 0.03 X10*3/uL (0.00-0.03); Imm Gran Pct Auto 0.3 % (0.0-0.4); Lymphocytes Absolute Auto 1.9 X10*3/uL (1.2-4.9); Lymphocytes Percent Auto 19.6 % (20-40); Mean Corpuscular HGB Conc 30.5 g/dl (31.0-35.0); Mean Corpuscular Hemoglobin 26.3 pg (27.0-33.0); Mean Corpuscular Volume 86.1 fL (80.0-98.0); Mean Platelet Volume 11.8 fL (9.4-12.3); Monocytes Absolute Auto 0.4 X10*3/uL (0.1-1.2); Monocytes Percent Auto 4.6 % (2-11); Neutrophils Absolute Auto 6.6 x10*3/uL (2.0-8.3); Neutrophils Percent Auto 69.6 % (45-73); Platelet Count 262 X10*3/uL (160-400); Red Blood Count 4.38 X10*6/uL (4.20-5.50); Red Cell Distribution Width 14.9 % (11.0-16.0); White Blood Count 9.5 X10*3/uL (4.8-10.8)
[2022-12-17 15:47] LABS: Estimated Average Glucose 180 mg/dL; Hemoglobin A1c % 7.9 %
[2022-12-17 16:11] LABS: Anion Gap 14 (12-20); Bilirubin Total 0.4 mg/dL (0.0-1.0); Blood Urea Nitrogen 7 mg/dL (9-16); Calcium 9.9 mg/dL (8.4-10.2); Carbon Dioxide 28 mmol/L (22-29); Chloride 105 mmol/L (96-108); Estimated Glomerular Filt Rate > 60; Glucose Random 133 mg/dL (60-115); Potassium 4.2 mmol/L (3.3-5.1); Sodium 143 mmol/L (135-145)
[2022-12-17 16:12] LABS: Alanine Aminotransferase 27 U/L (0-31); Albumin Level 4.3 g/dL (3.5-5.0); Alkaline Phosphatase 107 U/L (39-117); Aspartate Amino Transferase 21 U/L (5-31); Total Protein 7.2 g/dL (6.5-8.0)
[2022-12-17 16:20] LABS: Creatinine Urine 170.99 mg/dL; Microalbum/Creatinine Ratio Ur 277.7 ug/mg cr
== END 2022-12-17 14:26 | disposition home or self-care (01) ==
LOC: HO.LAB 14:25
PROVIDERS: PCP Internal Medicine; Visit Provider Internal Medicine
DX: I10 Essential (primary) hypertension (principal); E11.9 Type 2 diabetes mellitus without complications; Z86.73 Personal history of transient ischemic attack (TIA), and cerebral infarction without residual deficits
CPT/HCPCS: 36415; 80053; 82043; 83036; 85025

== ENCOUNTER 2023-01-01 11:26 | Outpatient (REF) | payer MEDICARE, MEDICAID, SELFPAY | END 2023-01-01 11:27 | disposition home or self-care (01) | LOC: HO.HOSX 11:26 | PROVIDERS: Visit Provider Physician Assistant | DX: Z13.89 Encounter for screening for other disorder (principal) ==

== ENCOUNTER 2023-01-17 13:00 | Outpatient (RCR) | payer MEDICARE, MEDICAID, SELFPAY | END 2023-11-19 13:35 | disposition home or self-care (01) | LOC: HO.OT 13:00 | PROVIDERS: PCP Internal Medicine; Visit Provider Internal Medicine | DX: I63.9 Cerebral infarction, unspecified (principal) | CPT/HCPCS: 97110; 97166; 97530; 97535; 97760 ==

== ENCOUNTER 2023-01-23 14:00 | Outpatient (RCR) | payer MEDICARE, MEDICAID, SELFPAY | END 2023-02-06 13:29 | disposition home or self-care (01) | LOC: HO.PT 14:00 | PROVIDERS: PCP Internal Medicine; Visit Provider Internal Medicine | DX: I63.9 Cerebral infarction, unspecified (principal) | CPT/HCPCS: 97110; 97112; 97162 ==

== ENCOUNTER 2023-06-14 13:10 | Outpatient (REF) | payer MEDICARE, MEDICAID, SELFPAY ==
[2023-06-14 13:33] LABS: MANUAL DIFF FLAG NO
[2023-06-14 13:40] LABS: Basophils Absolute Auto 0.1 X10*3/uL (0.0-0.2); Basophils Percent Auto 0.8 % (0-2); Eosinophils Absolute Auto 0.6 X10*3/uL (0.0-0.4); Hematocrit 39.9 % (37.0-47.0); Hemoglobin 12.4 g/dl (12.0-16.0); Imm Gran Abs Auto 0.02 X10*3/uL (0.00-0.03); Imm Gran Pct Auto 0.2 % (0.0-0.4); Lymphocytes Absolute Auto 1.3 X10*3/uL (1.2-4.9); Mean Corpuscular HGB Conc 31.1 g/dl (31.0-35.0); Mean Corpuscular Hemoglobin 26.7 pg (27.0-33.0); Mean Platelet Volume 11.2 fL (9.4-12.3); Monocytes Absolute Auto 0.4 X10*3/uL (0.1-1.2); Monocytes Percent Auto 4.4 % (2-11); Neutrophils Absolute Auto 6.8 x10*3/uL (2.0-8.3); Neutrophils Percent Auto 73.6 % (45-73); Platelet Count 275 X10*3/uL (160-400); Red Blood Count 4.64 X10*6/uL (4.20-5.50); Red Cell Distribution Width 13.8 % (11.0-16.0); White Blood Count 9.2 X10*3/uL (4.8-10.8)
[2023-06-14 13:54] LABS: Estimated Average Glucose 197 mg/dL; Hemoglobin A1c % 8.5 % (<6.0)
[2023-06-14 14:16] LABS: Alanine Aminotransferase 26 U/L (0-31); Albumin Level 4.2 g/dL (3.5-5.0); Alkaline Phosphatase 95 U/L (39-117); Anion Gap 15 (12-20); Aspartate Amino Transferase 22 U/L (5-31); Bilirubin Total 0.4 mg/dL (0.0-1.0); Blood Urea Nitrogen 9 mg/dL (9-16); Calcium 9.7 mg/dL (8.4-10.2); Carbon Dioxide 25 mmol/L (22-29); Chloride 103 mmol/L (96-108); Estimated Glomerular Filt Rate > 60; Glucose Random 207 mg/dL (60-115); Potassium 4.2 mmol/L (3.3-5.1); Sodium 139 mmol/L (135-145); Total Protein 7.4 g/dL (6.5-8.0)
[2023-06-14 17:07] LABS: Creatinine Urine 156.19 mg/dL
[2023-06-14 17:17] LABS: Microalbum/Creatinine Ratio Ur 548.6 ug/mg cr (<30)
== END 2023-06-14 13:11 | disposition home or self-care (01) ==
LOC: HO.LAB 13:10
PROVIDERS: PCP Internal Medicine; Visit Provider Internal Medicine
DX: I10 Essential (primary) hypertension (principal); E78.00 Pure hypercholesterolemia, unspecified; E11.9 Type 2 diabetes mellitus without complications; Z86.73 Personal history of transient ischemic attack (TIA), and cerebral infarction without residual deficits
CPT/HCPCS: 36415; 80053; 82043; 82570; 83036; 85025

== ENCOUNTER 2023-07-11 13:31 | Outpatient (REF) | payer MEDICARE, MEDICAID, SELFPAY ==
[2023-07-11 14:39] LABS: Influenza A PCR NEGATIVE (Negative); Influenza B PCR NEGATIVE (Negative); Resp Syncy Virus RNA Qual PCR NEGATIVE (Negative); SARS COV2 PCR INHOUSE POSITIVE (Negative)
== END 2023-07-11 13:32 | disposition home or self-care (01) ==
LOC: HO.LNP 13:31
PROVIDERS: Visit Provider Internal Medicine
DX: Z11.52 Encounter for screening for COVID-19 (principal); Z20.822 Contact with and (suspected) exposure to COVID-19; R05.9 Cough, unspecified; J02.9 Acute pharyngitis, unspecified
CPT/HCPCS: 0241U

== ENCOUNTER 2023-08-09 18:53 | Emergency (ER) | payer MEDICARE, MEDICAID, SELFPAY ==
--- NOTE | ~2023-08-09 | XR_ITS ---
EXAMINATION: X-ray right shoulder, right elbow and right forearm CLINICAL INFORMATION: Fall. COMPARISON: Radiograph right elbow 10/02/2022. TECHNIQUE: 2 views of the right humerus, one view of the right elbow and 2 views of the right forearm. FINDINGS: Horizontally oriented mid humeral shaft fracture with mild apical angulation and approximately 1 cm of distraction. Redemonstration of intra-articular radial head fracture as well as multiple bony fragments dorsal to the distal humerus and ventral to the radial head, demonstrating increased callus formation and osseous bridging compared to 10/02/2022. Query irregularity of the distal radius. Persistent small anterior and posterior joint effusions in the right elbow. Diffuse soft tissue swelling. Scattered vascular calcifications. XR/XR forearm RT 2V IMPRESSION: 1. Acute-appearing mid humeral shaft fracture. 2. Query irregularity of the distal radius, recommend correlation with dedicated radiographic views of the right wrist. 3. Again noted radial head fracture as well as additional fracture fragments along the dorsal and anterior surface of the elbow with increased callus formation and osseous bridging compared to September 2022.
--- NOTE | ~2023-08-09 | XR_ITS ---
EXAMINATION: X-ray right shoulder, right elbow and right forearm CLINICAL INFORMATION: Fall. COMPARISON: Radiograph right elbow 10/02/2022. TECHNIQUE: 2 views of the right humerus, one view of the right elbow and 2 views of the right forearm. FINDINGS: Horizontally oriented mid humeral shaft fracture with mild apical angulation and approximately 1 cm of distraction. Redemonstration of intra-articular radial head fracture as well as multiple bony fragments dorsal to the distal humerus and ventral to the radial head, demonstrating increased callus formation and osseous bridging compared to 10/02/2022. Query irregularity of the distal radius. Persistent small anterior and posterior joint effusions in the right elbow. Diffuse soft tissue swelling. Scattered vascular calcifications. XR/XR elbow RT 2V IMPRESSION: 1. Acute-appearing mid humeral shaft fracture. 2. Query irregularity of the distal radius, recommend correlation with dedicated radiographic views of the right wrist. 3. Again noted radial head fracture as well as additional fracture fragments along the dorsal and anterior surface of the elbow with increased callus formation and osseous bridging compared to September 2022.
--- NOTE | ~2023-08-09 | XR_ITS ---
EXAMINATION: X-ray right shoulder, right elbow and right forearm CLINICAL INFORMATION: Fall. COMPARISON: Radiograph right elbow 10/02/2022. TECHNIQUE: 2 views of the right humerus, one view of the right elbow and 2 views of the right forearm. FINDINGS: Horizontally oriented mid humeral shaft fracture with mild apical angulation and approximately 1 cm of distraction. Redemonstration of intra-articular radial head fracture as well as multiple bony fragments dorsal to the distal humerus and ventral to the radial head, demonstrating increased callus formation and osseous bridging compared to 10/02/2022. Query irregularity of the distal radius. Persistent small anterior and posterior joint effusions in the right elbow. Diffuse soft tissue swelling. Scattered vascular calcifications. XR/XR humerus RT IMPRESSION: 1. Acute-appearing mid humeral shaft fracture. 2. Query irregularity of the distal radius, recommend correlation with dedicated radiographic views of the right wrist. 3. Again noted radial head fracture as well as additional fracture fragments along the dorsal and anterior surface of the elbow with increased callus formation and osseous bridging compared to September 2022.
[2023-08-09 19:30] VITALS: BP 168/95; PULSE 98; RESP 16; TEMP 36.6; O2SAT 97; BMI 44.9
--- NOTE | 2023-08-09 19:31 | ED.GENADULT ---
HPI - General Adult General Chief complaint: Fall Stated complaint: fall today @1800 at home Time Seen by Provider: 08/09/23 20:09 Source: patient Mode of arrival: EMS Limitations: no limitations History of Present Illness HPI narrative: Patient's history of CVA with right-sided weakness was walking without support at home while passing through the door tripped on a rug landing on her right elbow complaining of pain in the mid arm no head injury no loss of consciousness no other injury Related Data Home Medications Medication Instructions Recorded Confirmed aspirin 81 mg tablet,delayed 81 mg PO DAILY 01/31/21 12/26/21 release (Adult Low Dose Aspirin) atorvastatin 40 mg tablet 40 mg PO DAILY 01/31/21 12/26/21 baclofen 10 mg tablet 10 mg PO BID 01/31/21 12/26/21 bupropion HCl 300 mg 24 hr tablet, 300 mg PO DAILY 01/31/21 12/26/21 extended release dulaglutide 1.5 mg/0.5 mL 1.5 mg subcut QWEEK 01/31/21 12/26/21 subcutaneous pen injector (Trulicity) fluoxetine 20 mg capsule 40 mg PO BEDTIME 01/31/21 12/26/21 gabapentin 100 mg capsule 100 mg PO DAILY 01/31/21 12/26/21 gabapentin 300 mg capsule 300 mg PO BEDTIME 01/31/21 12/26/21 glipizide 5 mg tablet, extended 10 mg PO BID 01/31/21 12/26/21 release 24 hr lisinopril 20 mg tablet 20 mg PO DAILY 01/31/21 12/26/21 metformin 1,000 mg tablet 1,000 mg PO BID 01/31/21 12/26/21 omeprazole 20 mg capsule,delayed 20 mg PO DAILY 01/31/21 12/26/21 release prochlorperazine maleate 10 mg 10 mg PO DAILY PRN Nausea 01/31/21 12/26/21 tablet cholecalciferol (vitamin D3) 125 125 mcg PO DAILY 12/26/21 12/26/21 mcg (5,000 unit) capsule Previous Rx's Medication Instructions Recorded clopidogrel 75 mg tablet 75 mg PO DAILY #0 tabs 12/28/21 oxycodone 5 mg tablet 5 mg PO TID PRN pain 2 days #5 tabs 10/12/22 oxycodone 5 mg tablet 5 mg PO Q6H PRN pain #30 tabs 08/09/23 Allergies Allergy/AdvReac Type Severity Reaction Status Date / Time No Known Allergies Allergy Verified 08/09/23 19:40 [No Known Allergies*] Review of Systems Review of Systems: Yes all other systems are reviewed and are negative [facility] Past Medical History Medical History CVA (cerebral vascular accident) Complex atypical endometrial hyperplasia Fibroids Muscle spasm Stroke Hypertension Diabetes Surgical History Hx of adenoidectomy H/O dilation and curettage Hx of tubal ligation Family History Family History Father History of liver cancer Mother Hx of thyroid disease Family history of diabetes mellitus Social History Social History Household Members: Spouse and Children Housing: House Alcohol intake: never Patient Tobacco Use Status: Never used Tobacco Cigarette Packs Per Day: 0.5 Cigarettes Per Day: 10.0 Years Smoked: 20 Smoked in Last 30 Days: No Use of substances other than those prescribed or required for medical reasons: No Advance Directives: Yes Advance Directives on File: Yes Advance Directives Date on File: 12/29/21 Patient : No service: No Current occupational status: disabled Physical Exam ED Vital Signs: Vital Signs - 24 hr 08/09/23 19:30 Temperature 97.9 F Pulse Rate 98 Respiratory Rate 16 Blood Pressure 168/95 H Pulse Oximetry 97 Oxygen Delivery Method Room Air BMI result Body Mass Index 44.9 Appearance: Alert. Oriented X3. No acute distress. Eyes: Equal round and react ENT: Pharynx normal. Oral Mucosa moist Neck: Normal inspection. Neck supple. No midline tenderness CVS: Normal heart rate and rhythm. Pulses normal. Respiratory: No respiratory distress. Equal air entry bilateral, Abdomen: Soft and nontender. Bowel sounds are present, Skin: Skin warm and dry. Normal skin color. Normal skin turgor. Extremities: Right arm tenderness and swelling neurovascular intact Neuro: Oriented X 3. Residual right-sided weakness Course Course Course Narrative: RME:?53 yo female here for eval of right UE pain s/p mechanical fall 30 minutes ago. Hx of CVA w/ right sided deficits. reports falling onto her right side. denies head strike or LOC. on Plavix. her son and were able to help her up immediately. imaging ordered. Full HPI, ROS and PE to be performed by the primary ED provider. Medications Administered Discontinued Medications Generic Name Dose Route Start Last Admin Trade Name Freq PRN Reason Stop Dose Admin Morphine Sulfate 15 mg 08/09/23 20:27 08/09/23 20:35 Morphine Sulfate Immed Release 15 Mg Tablet PO 08/09/23 20:28 15 mg ONCE ONE Administration Procedures Orthopedic Splinting/Casting Injury #1: Side: right Upper Extremity Injury Location: upper arm Upper Extremity Immobilizer: sling/shoulder immobilizer and posterior splint Medical Decision Making Medical Decision Making [facility] Narrative: Patient with right humerus fracture in the same arm which she had hemiparesis and not using her right arm that much case discussed orthopedic advised to apply posterior splint follow-up as outpatient Lab Data [facility] Lab Attestation statement: I reviewed the patient's lab results. Labs: Lab Results 08/09/23 Range/Units 20:09 POC Glucose 279 H (60-115) mg/dL Independent Interpretation I performed an independent interpretation of an: Plain X-Ray Radiology Impression Discussion of test interpretation with radiology: I have reviewed the radiologist's reading. Discharge Plan Discharge Clinical Impression: Closed right humeral fracture Patient Disposition: Home, Self-Care Instructions: Arm Fracture in Adults (ED) Additional Instructions: Wear the splint and shoulder sling until seen by orthopedics Follow-up with Dr. Almaraz Pain medication as prescribed Prescriptions: New oxycodone 5 mg tablet 5 mg PO Q6H PRN (Reason: pain) Qty: 30 0RF Rx Instructions: Partial Fill upon patient request. No Action oxycodone 5 mg tablet 5 mg PO TID PRN (Reason: pain) 2 Days Qty: 5 0RF Rx Instructions: Partial Fill upon patient request. cholecalciferol (vitamin D3) 125 mcg (5,000 unit) Capsule 125 mcg PO DAILY Rx Instructions: saturday thru saturday clopidogrel 75 mg Tablet 75 mg PO DAILY Qty: 0 0RF atorvastatin 40 mg tablet 40 mg PO DAILY bupropion HCl 300 mg tablet extended release 24 hr 300 mg PO DAILY omeprazole 20 mg capsule,delayed release(DR/EC) 20 mg PO DAILY gabapentin 300 mg capsule 300 mg PO BEDTIME baclofen 10 mg tablet 10 mg PO BID gabapentin 100 mg capsule 100 mg PO DAILY Trulicity 1.5 mg/0.5 mL pen injector 1.5 mg subcut QWEEK fluoxetine 20 mg capsule 40 mg PO BEDTIME metformin 1,000 mg tablet 1,000 mg PO BID glipizide 5 mg tablet extended release 24hr 10 mg PO BID lisinopril 20 mg tablet 20 mg PO DAILY prochlorperazine maleate 10 mg tablet 10 mg PO DAILY PRN (Reason: Nausea) aspirin [Adult Low Dose Aspirin] 81 mg tablet,delayed release (DR/EC) 81 mg PO DAILY Referrals: Gabe Almaraz MD [Physician] - 1 week Interventions: ED Discharge Assessment Last Done: 08/09/23 21:09 Discharge Date/Time: 08/09/23 21:10
[2023-08-09 20:13] LABS: Glucose, Whole Blood 279 mg/dL (60-115)
--- OUTSIDE RECORDS SUMMARY | 2023-08-09 20:13 | XMS_ITS | Continuity of Care Document ---
Author Name Unknown Organization [facility] Oncolog y Address [address] [place] [id number] Care Team Providers Care Can Line Operator Name Role Phone Guanaco Osuna MD Primary Care Physician Encounter [facility] Date(s): 10/08/22 - 11/07/22 [facility] INSPECTOR Oncology [address] [place] [id number] Allergies, Adverse Reactions, Alerts No Known Medication Allergies Medications aspirin 81 mg oral delayed release tablet 81 mg, 1, tablet, By Mouth, Daily, Refills 0, Maintenance, 03/08/21 14:33:00 EDT, Partial fill uponpatient request if the prescription is for a schedule II opioid drug. Start Date: 03/08/21 Status: Ordered aspirin 81 mg oral tablet, chewable 81 mg, 1, tablet, By Mouth, Daily, # 30 tablet, Refills 0, Tot. Refills 0, Maintenance, 01/02/22 10:55:00 EDT, Route to Pharmacy Electronically, [facility], Partial fill upon patient request if the prescription is for a schedule II opioi... Start Date: 01/02/22 Status: Ordered atorvastatin 40 mg oral tablet 1 tablet = 40 mg, By Mouth, Daily at bedtime, 0 Refills, Maintenance, 03/08/21 14:35:00 EDT, Partial fill upon patient request if the prescription is for a schedule II opioid drug. Start Date: 03/08/21 Status: Ordered atorvastatin 40 mg oral tablet 1 tablet = 40 mg, By Mouth, Daily at bedtime, # 30 tablet, 0 Refills, Maintenance, 01/02/22 10:58:00 EDT, Tablet, [facility], Partial fill upon patient request if the prescription is for a schedule II opioid drug., 165, cm, 01/02/22 7:40... Start Date: 01/02/22 Status: Ordered baclofen 10 mg oral tablet 10 mg, 1, tablet, By Mouth, 2 times a day, Refills 0, Maintenance, 03/08/21 14:35:00 EDT, Partial fill upon patient request if the prescription is for a schedule II opioid drug. Start Date: 03/08/21 Status: Ordered clopidogrel 75 mg oral tablet 75 mg, 1, tablet, By Mouth, Daily, # 30 tablet, Refills 0, Tot. Refills 0, Maintenance, 01/02/22 11:13:00 EDT, Route to Pharmacy Electronically, [id number], Partial fill upon patientrequest if the prescription is for a schedule II op... Start Date: 01/02/22 Status: Ordered clopidogrel 75 mg oral tablet 75 mg, 1, tablet, By Mouth, Daily, # 30 tablet, Refills 0, Tot. Refills 0, Maintenance, 01/02/22 10:52:00 EDT, Route to Pharmacy Electronically, [facility], Partial fill upon patient request if the prescription is for a schedule II opioi... Start Date: 01/02/22 Status: Ordered gabapentin 100 mg oral capsule 100 mg, 1, capsule, By Mouth, Daily in AM, Refills 0, Maintenance, 03/08/21 14:36:00 EDT, Partial fill upon patient request if the prescription is for a schedule II opioid drug. Start Date: 03/08/21 Status: Ordered gabapentin 100 mg oral capsule 300 mg, 3, capsule, By Mouth, Daily at bedtime, Refills 0, Maintenance, 04/13/21 14:47:00 EDT, Partial fill upon patient request if the prescription is for a schedule II opioid drug. Start Date: 04/13/21 Status: Ordered glipiZIDE 5 mg oral tablet, extended release 2 tablet = 10 mg, By Mouth, 2 times a day, # 30 tablet, 0 Refills, Maintenance, 12/28/21 15:08:00 EDT, ER Tablet, Partial fill upon patient request if the prescription is for a schedule II opioid drug. Start Date: 12/28/21 Status: Ordered Lisinopril = 30 mg, 0 Refills, Maintenance, 10/10/22 14:51:00 EDT, Partial fill upon patient request if the prescription is for a schedule II opioid drug. Start Date: 10/10/22 Status: Ordered lisinopril 20 mg oral tablet 20 mg, 1, tablet, By Mouth, Daily in AM, # 90 tablet, Refills 0, Maintenance, 04/13/21 14:46:00 EDT, Partial fill upon patient request if the prescription is for a schedule II opioid drug. Start Date: 04/13/21 Status: Ordered metFORMIN 1000 mg oral tablet 1 tablet = 1,000 mg, By Mouth, 2 times a day, 0 Refills, Maintenance, 03/08/21 14:34:00 EDT, Partial fill upon patient request if the prescription is for a schedule II opioid drug. Start Date: 03/08/21 Status: Ordered omeprazole 20 mg oral delayed release tablet 1 tablet = 20 mg, By Mouth, Daily in AM, 0 Refills, Maintenance, 03/08/21 14:36:00 EDT, Partial fill upon patient request if the prescription is for a schedule II opioid drug. Start Date: 03/08/21 Status: Ordered PROzac 40 mg oral capsule 1 capsule = 40 mg, By Mouth, Daily at bedtime, 0 Refills, Maintenance, 03/08/21 14:35:00 EDT, Partial fill upon patient request if the prescription is for a schedule II opioid drug. Start Date: 03/08/21 Status: Ordered Trulicity Pen = 1.5 mg, Subcutaneous Injection, Every Saturday, 0 Refills, Maintenance, 03/08/21 14:33:00 EDT, Partial fill upon patient request if the prescription is for a schedule II opioid drug. Start Date: 03/08/21 Status: Ordered Tylenol 325 mg oral tablet 650 mg, 2, tablet, By Mouth, Every 6 hours, PRN, # 60 tablet, Refills 0, Maintenance, for fever, 12/28/21 15:36:00 EDT, Partial fill upon patient request if the prescription is for a schedule II opioid drug. Start Date: 12/28/21 Status: Ordered Vitamin D3 50,000 intl units oral capsule 1 capsule = 1,250 mcg, By Mouth, Daily, Only takes Saturday through Saturday, 0 Refills, Maintenance, 04/13/21 14:50:00 EDT, Partial fill upon patient request if the prescription is for a schedule II opioid drug. Start Date: 04/13/21 Status: Ordered Wellbutrin XL 300 mg/24 hours oral tablet, extended release 1 tablet = 300 mg, By Mouth, Daily at bedtime, 0 Refills, Maintenance, 03/08/21 14:34:00 EDT, Partial fill upon patient request if the prescription is for a schedule II opioid drug. Start Date: 03/08/21 Status: Ordered Problem List Condition Confirmation Course Effective Dates Status H ealth Status Informant Anxiety Confirmed Active Stroke Confirmed Active Depression Confirmed Active Diabetes Confirmed Active complex atypical Endometrial hyperplasia Confirmed Active Hyperlipidemia Confirmed Active HTN (hypertension) Confirmed Active Irregular bleeding Confirmed Active Endometrial cancer Confirmed Active Severe obesity Confirmed Active Muscle spasm Confirmed Active Social History Social History Type Response Smoking Status Former smoker, quit more than 30 days ago; Type: Cigarettes; Exposure to Secondhand Smoke: Yes; Tobacco user in household: Yes; Number of years: 24; Started at age: 23; Stopped at age: 47; entered on: 12/29/21 Sex Patient Care team information Care Team Personnel Name: Guanaco Osuna MD Position: [facility] Outreach Member Role: PCP Address: Address: [address] [place] [address] [place] [address]- Name: Mamta Lynn RN Position: [facility] ED RN W/OE and Tasks Member Role: Primary Care Nurse Care Team Related Persons Name: RAMBO SOUSA Address: [address] [address]
--- OUTSIDE RECORDS SUMMARY | 2023-08-09 20:13 | XMS_ITS | Continuity of Care Document ---
Author Name Unknown Organization [facility]ATE Oncolog y Address [address] [place] [id number]- Care Team Providers Care Anthropologist Name Role Phone Guanaco Osuna MD Primary Care Physician [phone] [facility] [id number] Date(s): 02/06/23 - 02/13/23 [facility] MATE Oncology [address] [place] [id number] Attending Physician: Yara Durand MD Admitting Physician: Yara Durand MD Referring Physician: Guanaco Osuna MD Allergies, Adverse Reactions, Alerts No Known Medication [...] 01/02/22 10:55:00 EDT, Route to Pharmacy Electronically, [facility], Partial fill upon patient request if [...] 0 Refills, Maintenance, 01/02/22 10:58:00 EDT, Tablet, [facility], Partial fill upon patient request if the prescription is for a schedule II opioid drug., 165, cm, 01/02/22 7:40... Start Date: 01/02/22 Status: Ordered baclofen 10 mg oral tablet 10 mg, 1, tablet, By Mouth, 3 times a day, Refills 0, Maintenance, 03/08/21 14:35:00 EDT, Partial fill upon patient request if the prescription is for a schedule II opioid drug. Start Date: 03/08/21 Status: Ordered clopidogrel 75 mg oral tablet 75 mg, 1, tablet, By Mouth, Daily, # 30 tablet, Refills 0, Tot. Refills 0, Maintenance, 01/02/22 11:13:00 EDT, [id number], Partial fill upon patientrequest if the prescription is for a schedule II op... Start Date: 01/02/22 Status: Ordered clopidogrel 75 mg oral tablet 75 mg, 1, tablet, By Mouth, Daily, # 30 tablet, Refills 0, Tot. Refills 0, Maintenance, 01/02/22 10:52:00 EDT, Route to Pharmacy Electronically, [facility], Partial fill upon patient request if the prescription is for a schedule II opioi... Start Date: 01/02/22 Status: Ordered gabapentin 100 mg oral capsule 100 mg, 1, capsule, By Mouth, 3 times a day, Refills 0, Maintenance, 03/08/21 14:36:00 EDT, Partialfill upon patient request if the prescription is [...] 12/28/21 Status: Ordered Lisinopril = 30 mg, 2 times a day, 0 Refills, Maintenance, 10/10/22 14:51:00 EDT, Partial [...] obesity Confirmed Active Muscle spasm Confirmed Active Vital Signs Most recent to oldest [Reference Range]: 1 Height 165 cm (02/06/23 5:06 PM) Weight 132.0 kg (02/06/23 5:06 PM) Oxygen Saturation [94-100 %] 98 % (02/06/23 5:06 PM) Pulse Rate [55-90 bpm] 104 bpm *H* (02/06/23 5:06 PM) Body Mass Index [18.5-24.99 kg/m2] 48.48 kg/m2 *>HHI* (02/06/23 5:06 PM) Blood Pressure [90-138/55-84 mm Hg] 148/ 76mm Hg *H* (02/06/23 5:06 PM) Temperature [96.8-100.4 DegF] 96.0 DegF *L* (02/06/23 5:06 PM) Blood pressure sites Arm, left (02/06/23 5:06 PM) Temperature Route Temporal (02/06/23 5:06 PM) Dry Weight 132.0 kg (02/06/23 5:06 PM) Weight Obtained Via Standing scale (02/06/23 5:06 PM) Dry Weight Obtained Via Standing scale (02/06/23 5:06 PM) Social History Social History Type Response Smoking Status Former smoker, quit more than 30 days ago; Type: Cigarettes; Exposure to Secondhand Smoke: Yes; Tobacco user in household: Yes; Number of years: 24; Started at age: 23; Stopped at age: 47; entered on: 12/29/21 Sex Patient Care team information Care Team Personnel Name: Guanaco Osuna MD Position: [facility] Outreach Member Role: PCP Address: Address: [address] [place] [address] [place] [address]- Name: Mamta Lynn RN Position: [facility] ED RN W/OE and Tasks Member Role: Primary Care Nurse Care Team Related Persons Name: RAMBO SOUSA Address: home [address] [place] [address] [address] [place] [address]
--- OUTSIDE RECORDS SUMMARY | 2023-08-09 20:13 | XMS_ITS | Continuity of Care Document ---
Author Name Unknown Organization [facility] DIRECT[facility] Oncolog y Address [address] [place] [id number]- Care Team Providers Care Spoilage Worker Name Role Phone Guanaco Osuna MD Primary Care Physician Encounter [facility] [place] Date(s): 04/24/23 - 05/01/23 [facility] DIRECT[facility] Oncology [address] [place] [id number] Attending Physician: Yara Durand MD Admitting Physician: [...] 01/02/22 10:55:00 EDT, Route to Pharmacy Electronically, [facility], Partial fill upon patient [...] 0 Refills, Maintenance, 01/02/22 10:58:00 EDT, Tablet, [facility], Partial fill upon patient [...] 01/02/22 11:13:00 EDT, Route to Pharmacy Electronically, [id number], Partial fill upon patientrequest if the prescription is for a schedule II op... Start Date: 01/02/22 Status: Ordered clopidogrel 75 mg oral tablet 75 mg, 1, tablet, By Mouth, Daily, # 30 tablet, Refills 0, Tot. Refills 0, Maintenance, 01/02/22 10:52:00 EDT, Route to Pharmacy Electronically, [facility], Partial fill upon patient [...] oldest [Reference Range]: 1 Height 165 cm (04/24/23 9:02 AM) Weight 134 kg (04/24/23 9:02 AM) Pulse Rate [55-90 bpm] 115 bpm *H* (04/24/23 9:02 AM) Body Mass Index [18.5-24.99 kg/m2] 49.22 kg/m2 *>HHI* (04/24/23 9:02 AM) Blood Pressure [90-138/55-84 mm Hg] 150/ 88mm Hg *H* (04/24/23 9:02 AM) Temperature [96.8-100.4 DegF] 97.7 DegF (04/24/23 9:02 AM) Blood pressure sites Arm, left (04/24/23 9:02 AM) Weight Obtained Via Standing scale (04/24/23 9:02 AM) Social History Social History Type Response Smoking Status Former smoker, quit more than 30 days ago; Type: Cigarettes; Exposure to Secondhand Smoke: Yes; Tobacco user in household: Yes; Number of years: 24; Started at age: 23; Stopped at age: 47; entered on: 12/29/21 Sex Patient Care team information Care Team Personnel Name: Guanaco Osuna MD Position: [facility] Outreach Member Role: PCP Address: Address: [address] Guanaco Osuna [place] [address] Name: Mamta Lynn RN Position: [facility] ED RN W/OE and Tasks Member Role: Primary Care Nurse Care Team Related Persons Name: RAMBO SOUSA Address: [address] [address]
[2023-08-09] MEDS: Morphine Sulfate Immed Release 15 MG TABLET PO (20:35)
== END 2023-08-09 21:10 | disposition home or self-care (01) ==
PROVIDERS: Emergency Provider Internal Medicine; PCP Internal Medicine
DX: S42.391A Other fracture of shaft of right humerus, initial encounter for closed fracture (principal); W22.8XXA Striking against or struck by other objects, initial encounter; M25.521 Pain in right elbow; Y93.01 Activity, walking, marching and hiking; Y92.008 Other place in unspecified non-institutional (private) residence as the place of occurrence of the external cause; Y99.9 Unspecified external cause status; E11.8 Type 2 diabetes mellitus with unspecified complications; I10 Essential (primary) hypertension; I69.351 Hemiplegia and hemiparesis following cerebral infarction affecting right dominant side; F17.210 Nicotine dependence, cigarettes, uncomplicated; Z79.899 Other long term (current) drug therapy; Z79.85 Long-term (current) use of injectable non-insulin antidiabetic drugs; Z79.84 Long term (current) use of oral hypoglycemic drugs; Z79.82 Long term (current) use of aspirin
CPT/HCPCS: 29105; 73060; 73070; 73090; 82947; 99283; 99284

== ENCOUNTER 2023-08-16 08:56 | Outpatient (REF) | payer MEDICARE, MEDICAID, SELFPAY ==
--- NOTE | ~2023-08-16 | XR_ITS ---
EXAMINATION: XR WRIST, RIGHT XR HUMERUS, RIGHT CLINICAL INFORMATION: Pain. COMPARISON: Wrist radiographs 08/16/2023 and 10/25/2022. Right elbow and humerus radiographs of 08/09/2023. TECHNIQUE: PA, lateral, and oblique views of the right wrist. 2 AP views and 2 lateral views of the right humerus. FINDINGS: RIGHT WRIST: Redemonstration of a comminuted intra-articular fracture of the distal radius with overlying cast which limits detailed visualization. Redemonstration of avulsion of the ulnar styloid. There has been some interval healing. There has been progression of severe bony demineralization with area of geographic lucency in the distal radius. Vascular calcifications. RIGHT HUMERUS: Redemonstration of a comminuted fracture of the mid humerus with similar mild displacement of fracture fragments. Previously identified intra-articular radial head fracture with multiple bony fragments dorsal to the distal humerus and ventral to the radial head redemonstrated, similar in appearance. Diffuse soft tissue swelling. XR/XR humerus RT IMPRESSION: 1. Redemonstration of comminuted mid humeral shaft fracture. 2. Previously identified intra-articular radial head fracture with multiple bony fragments dorsal to the distal humerus and ventral to the radial head redemonstrated, similar in appearance. 3. Redemonstration of healing of nondisplaced comminuted intra-articular fracture of the distal radius as noted on 11/29/2022. Redemonstration of avulsion of the ulnar styloid. Bones are severely demineralized with focal lucency in the distal radius limiting evaluation for superimposed acute fracture. CT scan could be considered for further evaluation.
--- NOTE | ~2023-08-16 | XR_ITS ---
EXAMINATION: XR WRIST, RIGHT XR HUMERUS, RIGHT CLINICAL INFORMATION: Pain. COMPARISON: Wrist radiographs 08/16/2023 and 10/25/2022. Right elbow and humerus radiographs of 08/09/2023. TECHNIQUE: PA, lateral, and oblique views of the right wrist. 2 AP views and 2 lateral views of the right humerus. FINDINGS: RIGHT WRIST: Redemonstration of a comminuted intra-articular fracture of the distal radius with overlying cast which limits detailed visualization. Redemonstration of avulsion of the ulnar styloid. There has been some interval healing. There has been progression of severe bony demineralization with area of geographic lucency in the distal radius. Vascular calcifications. RIGHT HUMERUS: Redemonstration of a comminuted fracture of the mid humerus with similar mild displacement of fracture fragments. Previously identified intra-articular radial head fracture with multiple bony fragments dorsal to the distal humerus and ventral to the radial head redemonstrated, similar in appearance. Diffuse soft tissue swelling. XR/XR wrist RT min 3V IMPRESSION: 1. Redemonstration of comminuted mid humeral shaft fracture. 2. Previously identified intra-articular radial head fracture with multiple bony fragments dorsal to the distal humerus and ventral to the radial head redemonstrated, similar in appearance. 3. Redemonstration of healing of nondisplaced comminuted intra-articular fracture of the distal radius as noted on 11/29/2022. Redemonstration of avulsion of the ulnar styloid. Bones are severely demineralized with focal lucency in the distal radius limiting evaluation for superimposed acute fracture. CT scan could be considered for further evaluation.
== END 2023-08-16 08:57 | disposition home or self-care (01) ==
LOC: HO.HOSX 08:56
PROVIDERS: Visit Provider Physician Assistant
DX: Z09 Encounter for follow-up examination after completed treatment for conditions other than malignant neoplasm (principal); M25.531 Pain in right wrist; S42.301A Unspecified fracture of shaft of humerus, right arm, initial encounter for closed fracture; W01.0XXA Fall on same level from slipping, tripping and stumbling without subsequent striking against object, initial encounter; Y93.01 Activity, walking, marching and hiking; Y92.009 Unspecified place in unspecified non-institutional (private) residence as the place of occurrence of the external cause; Y99.9 Unspecified external cause status
CPT/HCPCS: 71101; 73060; 73110; 73630; 87070; 87077; 87186; 87205; 99212

== ENCOUNTER 2023-08-16 10:59 | Outpatient (AMB) | payer MEDICARE, MEDICAID, SELFPAY ==
--- NOTE | 2023-08-16 11:03 | A.OFFVIS_ITS ---
Intake Vital Signs 08/16/23 11:27 Height 5 ft Weight 230 lb BMI 44.9 Intake Visit Reasons: ER f/u right humeral fracture DOI 08/09/23 Intake Note: Loraine law 53 year old Left hand dominant female presents today for an ER follow up of right humeral fracture on 08/09/23. Patient reports while at home she was passing through the door when she tripped on a rug landing on her right elbow. She presented to [facility] ED the same day where xrays were taken, she was placed in a splint and shoulder sling. She states that when she was getting dressed today s he noticed brusing on her ribs on the Right side. Allergies No Known Allergies [No Known Allergies*] Allergy (Verified 08/16/23 11:03) HPI ER f/u right humeral fracture DOI 08/09/23 HPI Details 53-year-old left hand dominant female wh o presents in the office today for an evaluation of an evaluation of right elbow pain. The patient presented to the ED on 08/09/2023 status post walking without support at home and tripping over a rug landing on her right elbow. X-rays were obtained. The patient was placed in a sling with a posterior splint, prescribed Oxycodone 5 mg PO Q6H PRN with 30 pills, and referred to Orthopedics. While in the office today states when she was getting dressed today she noticed bruising over her ribs on her right side. Patient has a history of CVA with right-sided weakness, per ED note. [facility] CVA (cerebral vascular accident) Complex atypical endometrial hyperplasia Fibroids Muscle spasm Stroke Hypertension Diabetes Surgical History Hx of adenoidectomy H/O dilation and curettage Hx of tubal ligation Family History Father History of liver cancer Mother Hx of thyroid disease Family history of diabetes mellitus Social History Household Members: Spouse and Children Housing: House Alcohol intake: never Patient Tobacco Use Status: Never used Tobacco Cigarette Packs Per Day: 0.5 Cigarettes Per Day: 10.0 Years Smoked: 20 Advance Directives Date on File: 12/29/21 service: No Current occupational status: disabled Review of Systems Const All systems reviewed & are unremarkable except as noted in HPI and below Physical Exam Vital Signs: BMI result Body Mass Index 44.9 Const General: cooperative and no acute distress Orientation/consciousness: patient oriented x3 Resp Effort & Inspection: normal respiratory effort and able to speak in complete sentences Cardio Peripheral pulses: Peripheral pulses 2+ throughout Skin General skin exam: no rashes or lesions noted Neuro General: patient oriented x3 Extrem Other: Right upper extremity: has baseline neurological deficits from a prior stroke. Circumferential edema and ecchymosis around the mid shaft humerus at the fracture site. Office Procedures Fracture Care Fracture Billing Code: Fracture Billing Code Assessment & Plan Assessment & Plan (1) Right humeral fracture: Code(s): S42.301A - Unspecified fracture of shaft of humerus, right arm, initial encounter for closed fracture Plan Ms. Mathias is a 53-year-old left hand dominant female who presents in the office today for an evaluation of an evaluation of right elbow pain. The patient presented to the ED on 08/09/2023 status post walking without support at home and tripping over a rug landing on her right elbow. X-rays were obtained. The patient was placed in a sling with a posterior splint, prescribed Oxycodone 5 mg PO Q6H PRN with 30 pills, and referred to Orthopedics. While in the office today states when she was getting dressed today she noticed bruising over her ribs on her right side. Patient has a history of CVA with right-sided weakness, per ED note. The patient was placed in to a thermal molded proximal humerus fracture brace. She should stay in this at all time. She was also fit for an ultra sling without the pillow, off the shelf, for more supports. Follow up will be in 4 weeks, or sooner if needed. X-rays of the right humerus which were obtained while in the office today and were reviewed by , Radha Meza PA-C, redemonstration of a mid-shaft humerus fracture. X-rays of the right elbow, obtained on 08/09/2023, revealed: 1. Acute-appearing mid humeral shaft fracture. 2. Query irregularity of the distal radius, recommend correlation with dedicated radiographic views of the right wrist. 3. Again noted radial head fracture as well as additional fracture fragments along the dorsal and anterior surface of the elbow with increased callus formation and osseous bridging compared to September 2022. Orders: Orders XR humerus RT Today Patient Instructions: Scribed by Ellen Robertson medical management specialist, for Radha Susana VALDEZ on 08/16/2023 at 11:07 am, EST. Coding Level of Care Code Est Pt Level 4 (82771) Diagnoses Right humeral fracture S42.301A CPT Codes Fracture Care - Fracture Billing Code: Fracture Billing Code ([id number])
[2023-08-16 11:27] VITALS: BMI 44.9
== END 2023-08-16 12:10 | disposition home or self-care (01) ==
PROVIDERS: PCP Internal Medicine; Visit Provider Physician Assistant
DX: S42.301A Unspecified fracture of shaft of humerus, right arm, initial encounter for closed fracture (principal)
CPT/HCPCS: 99213

== ENCOUNTER 2023-08-16 14:09 | Outpatient (REF) | payer MEDICARE, MEDICAID, SELFPAY ==
--- NOTE | ~2023-08-16 | XR_ITS ---
EXAMINATION: XR RIBS, RIGHT CLINICAL INFORMATION: Reason for Exam rib pain COMPARISON: Same-day humerus radiographs TECHNIQUE: 3 views of the Right ribs. 1 view of the chest. FINDINGS: No displaced rib fracture. Again seen is a comminuted displaced fracture of the right mid humeral diaphysis better appreciated on concurrent dedicated humerus radiographs Clear lungs. No pneumothorax. No pleural effusion. Normal cardiomediastinal silhouette. XR/XR ribs RT min 3V w CXR1V IMPRESSION: 1. No displaced rib fracture. 2. Again seen is a comminuted displaced fracture of the right mid humeral diaphysis better appreciated on concurrent dedicated humerus radiographs.
--- NOTE | ~2023-08-16 | XR_ITS ---
EXAMINATION: XR FOOT, LEFT CLINICAL INFORMATION: Reason for Exam S/P FALL, pain COMPARISON: None TECHNIQUE: 3 views of the foot FINDINGS: No fracture or dislocation. Joint spaces are maintained. Plantar calcaneal spurring and Achilles tendon enthesopathy. No joint effusion. Atherosclerotic vascular calcification. Mild soft tissue swelling along the dorsum of the foot. XR/XR foot LT min 3V IMPRESSION: 1. No fracture or dislocation. Mild soft tissue swelling along the dorsum of the foot.
== END 2023-08-16 14:10 | disposition home or self-care (01) ==
LOC: HO.LAB 14:09
PROVIDERS: PCP Internal Medicine; Visit Provider Internal Medicine
DX: Z13.89 Encounter for screening for other disorder (principal)
CPT/HCPCS: 71101; 73630

== ENCOUNTER 2023-08-20 13:06 | Outpatient (AMB) | payer MEDICARE, MEDICAID, SELFPAY ==
--- NOTE | 2023-08-20 13:07 | MHC.OFFVIS ---
Intake Intake Visit Reasons: Lt foot ulcer Intake Note: Patient referred by PCP Dr. Osuna for Lt foot ulcer. Present for 5wks. Patient c/o: oozing, painful, redness. Wool Classer Required: No Accompanied by: Self / Same As Patient Allergies No Known Allergies [No Known Allergies*] Allergy (Verified 08/20/23 13:08) Medication List - Last Reconciled 08/20/23 by Yury Kwok MD aspirin (Adult Low Dose Aspirin) 81 mg PO DAILY atorvastatin 40 mg PO DAILY baclofen 10 mg PO BID bupropion HCl 300 mg PO DAILY cholecalciferol (vitamin D3) 125 mcg PO DAILY clopidogrel 75 mg PO DAILY dulaglutide (Trulicity) 1.5 mg subcut QWEEK fluoxetine 40 mg PO BEDTIME gabapentin 100 mg PO DAILY gabapentin 300 mg PO BEDTIME glipizide ER 10 mg PO BID lisinopril 20 mg PO DAILY metformin 1,000 mg PO BID omeprazole 20 mg PO DAILY oxycodone 5 mg PO Q6H PRN oxycodone 5 mg PO TID PRN 2 days prochlorperazine maleate 10 mg PO DAILY PRN HPI HPI Comments History of Present Illness Details Patient presents here for evaluation of 2 left plantar aspect of foot wounds. Patient has sustained significant trauma approximately 6 weeks ago status post a fall. She has had a right humerus fracture among other injuries. She had 2 ft wounds which have been managed by her medical doctor. She presents here for further evaluation. Chart was reviewed patient evaluated [facility] Medical History CVA (cerebral vascular accident) Complex atypical endometrial hyperplasia Fibroids Muscle spasm Stroke Hypertension Diabetes Surgical History Hx of adenoidectomy H/O dilation and curettage Hx of tubal ligation Family History Father History of liver cancer Mother Hx of thyroid disease Family history of diabetes mellitus Social History Household Members: Spouse and Children Housing: House Alcohol intake: never Patient Tobacco Use Status: Never used Tobacco Cigarette Packs Per Day: 0.5 Cigarettes Per Day: 10.0 Years Smoked: 20 Advance Directives Date on File: 12/29/21 service: No Current occupational status: disabled Physical Exam Const Other: Wheelchair-bound status post prior stroke. Right upper extremity sling for humerus fracture. Extrem Other: Patient has 2 superficial wounds involving the plantar aspect of her left foot. Each manner proximally 1 x 1/2 cm. Superficial necrotic debris/eschar was sharply debrided from each. Good backbleeding was obtained. Wound is grossly neurovascularly intact. Patient has been using topical Silvadene which was applied with the Kerlix wrap. Well tolerated. Office Procedures Debridement Details: Risks, benefits, alternatives of eschar debridement of 2 plantar left foot wounds each measuring 1 x 1/2 cm reviewed the patient and included but not limited to bleeding, infection, recurrence, numbness, pain, scarring the patient was to proceed. Patient underwent after appropriate positioning appropriate prep and uneventful debridement of superficial eschar of each plan are wound. Wounds were irrigated, secured hemostasis, Silvadene, dressings, and wrap were placed. Well tolerated. 34708-[id number] of skin tissue Procedure code (CPT) selection complete Assessment & Plan Assessment & Plan (1) Wound of foot: Code(s): S91.309A - Unspecified open wound, unspecified foot, initial encounter Plan At present, no long-term surgical issues in vision. The patient has been given local instructions and will arrange for wound clinic care consult for further input. Patient will otherwise follow-up p.r.n.. She should elevate extremity as much as possible as well. All questions answered. Orders: Orders AMB Debridement Today S91.309A - Unspecified open wound, unspecified foot, initial encounter Coding Level of Care Code New Pt Level 5 (63757) Diagnoses Wound of foot S91.309A CPT Codes Skin Debridement - CPT: 43928-Xeinoitibxm of skin tissue ([id number])
== END 2023-08-20 13:23 | disposition home or self-care (01) ==
PROVIDERS: PCP Internal Medicine; Referring Provider Internal Medicine; Visit Provider Surgery
DX: L97.529 Non-pressure chronic ulcer of other part of left foot with unspecified severity (principal)
CPT/HCPCS: 97597; 99204

== ENCOUNTER → 2023-08-20 | Outpatient (BNVA) | payer MEDICARE, MEDICAID, SELFPAY | PROVIDERS: PCP Internal Medicine; Referring Provider Internal Medicine; Visit Provider Surgery | DX: S91.302A Unspecified open wound, left foot, initial encounter (principal); Z99.3 Dependence on wheelchair | CPT/HCPCS: 97597; 99202 ==

== ENCOUNTER 2023-08-30 10:27 | Outpatient (REF) | payer MEDICARE, MEDICAID, SELFPAY | END 2023-08-30 10:28 | disposition home or self-care (01) | LOC: HO.HOSX 10:27 | PROVIDERS: Visit Provider Physician Assistant | DX: Z13.89 Encounter for screening for other disorder (principal) ==

== ENCOUNTER 2023-09-13 08:02 | Outpatient (REF) | payer MEDICARE, MEDICAID, SELFPAY ==
--- NOTE | ~2023-09-13 | XR_ITS ---
EXAMINATION: XR HUMERUS, RIGHT CLINICAL INFORMATION: Right humerus fracture COMPARISON: 08/16/2023 TECHNIQUE: AP and lateral views of the right humerus. FINDINGS: Redemonstration of comminuted mid shaft humeral fracture with surrounding callus formation. Partially visualized radial head comminuted fracture again noted. XR/XR humerus RT IMPRESSION: * Redemonstration of comminuted mid shaft humeral fracture with surrounding callus formation. * Partially visualized radial head comminuted fracture.
== END 2023-09-13 08:03 | disposition home or self-care (01) ==
LOC: HO.HOSX 08:02
PROVIDERS: Visit Provider Physician Assistant
DX: Z13.89 Encounter for screening for other disorder (principal)
CPT/HCPCS: 73060

== ENCOUNTER 2023-09-13 12:05 | Outpatient (AMB) | payer MEDICARE, MEDICAID, SELFPAY ==
--- NOTE | 2023-09-13 12:53 | MHC.OFFVIS ---
Intake Intake Visit Reasons: ov - right humeral fx, DOI 08/09/23 Allergies No Known Allergies [No Known Allergies*] Allergy (Verified 08/20/23 13:08) HPI ov - right humeral fx, DOI 08/09/23 HPI Details 53-year-old left hand dominant female who presents in the office today for a follow up of a right humeral fracture, which occurred on 08/09/2023 status post walking without support at home and tripping over a rug landing on her right elbow. I last saw the patient in the office on 08/16/2023 at which time she was placed in a thermal mold proximal humerus fracture brace. [facility] Medical History CVA (cerebral vascular accident) Complex atypical endometrial hyperplasia Fibroids Muscle spasm Stroke Hypertension Diabetes Surgical History Hx of adenoidectomy H/O dilation and curettage Hx of tubal ligation Family History Father History of liver cancer Mother Hx of thyroid disease Family history of diabetes mellitus Social History Household Members: Spouse and Children Housing: House Alcohol intake: never Patient Tobacco Use Status: Never used Tobacco Cigarette Packs Per Day: 0.5 Cigarettes Per Day: 10.0 Years Smoked: 20 Advance Directives Date on File: 12/29/21 service: No Current occupational status: disabled Review of Systems Const All systems reviewed & are unremarkable except as noted in HPI and below Physical Exam Const General: cooperative, healthy appearing and no acute distress Resp Effort & Inspection: normal respiratory effort and able to speak in complete sentences Cardio Rate: regular rate Peripheral pulses: Peripheral pulses 2+ throughout GI Palpation (GI): Soft to palpation Skin Lesions: no lesions Rashes: no rashes Extrem Other: Right upper extremity: has baseline neurological deficits from a prior stroke. Mild circumferential edema and ecchymosis around the mid shaft humerus at the fracture site. Assessment & Plan Assessment & Plan (1) Right humeral fracture: Code(s): S42.301A - Unspecified fracture of shaft of humerus, right arm, initial encounter for closed fracture Qualifiers: Encounter type: subsequent encounter Fracture healing: with routine healing Fracture morphology: unspecified fracture morphology Fracture type: closed Humerus Location: proximal Qualified Code(s): S42.201D - Unspecified fracture of upper end of right humerus, subsequent encounter for fracture with routine healing Plan Ms. Mathias is a 53-year-old left hand dominant female who presents in the office today for a follow up of a right humeral fracture, which occurred on 08/09/2023 status post walking without support at home and tripping over a rug landing on her right elbow. I last saw the patient in the office on 08/16/2023 at which time she was placed in a thermal mold proximal humerus fracture brace. The proximal humerus brace was remolded while in the office today. Follow up will be in 5 weeks with repeat x-rays, or sooner if needed. X-rays of the right elbow which were obtained while in the office today and were reviewed by me, Radha Meza PA-C, revealed routine healing of a right humeral fracture. Orders: Orders XR humerus RT Today S42.301A - Unspecified fracture of shaft of humerus, right arm, initial encounter for closed fracture Patient Instructions: Scribed by Ellen Robertson medical support specialist, for Radha Meza PA-C on 09/13/2023 at 12:18 pm, EST. Coding Level of Care Code Global (57101) Diagnoses Closed fracture of proximal end of right humerus with routine healing, unspecified fracture morphology, subsequent encounter S42.201D Encounter type: subsequent encounter Fracture healing: with routine healing Fracture morphology: unspecified fracture morphology Fracture type: closed Humerus Location: proximal
== END 2023-09-13 12:58 | disposition home or self-care (01) ==
PROVIDERS: PCP Internal Medicine; Visit Provider Physician Assistant
DX: S42.201D Unspecified fracture of upper end of right humerus, subsequent encounter for fracture with routine healing (principal)
CPT/HCPCS: 99213

== ENCOUNTER → 2023-09-13 12:05 | Outpatient (BNVA) | payer MEDICARE, MEDICAID, SELFPAY | PROVIDERS: PCP Internal Medicine; Visit Provider Physician Assistant | DX: S42.301D Unspecified fracture of shaft of humerus, right arm, subsequent encounter for fracture with routine healing (principal); W18.09XD Striking against other object with subsequent fall, subsequent encounter | CPT/HCPCS: 73060; 99212 ==

== ENCOUNTER 2023-09-23 11:34 | Outpatient (REF) | payer MEDICARE, MEDICAID, SELFPAY ==
[2023-09-23 11:48] LABS: MANUAL DIFF FLAG NO
[2023-09-23 12:37] LABS: Basophils Absolute Auto 0.1 X10*3/uL (0.0-0.2); Basophils Percent Auto 0.7 % (0-2); Eosinophils Absolute Auto 0.2 X10*3/uL (0.0-0.4); Eosinophils Percent Auto 1.6 % (0-4); Hematocrit 36.4 % (37.0-47.0); Hemoglobin 11.3 g/dl (12.0-16.0); Imm Gran Abs Auto 0.03 X10*3/uL (0.00-0.03); Imm Gran Pct Auto 0.3 % (0.0-0.4); Lymphocytes Absolute Auto 1.6 X10*3/uL (1.2-4.9); Lymphocytes Percent Auto 17.4 % (20-40); Mean Corpuscular Hemoglobin 26.7 pg (27.0-33.0); Mean Corpuscular Volume 86.1 fL (80.0-98.0); Mean Platelet Volume 11.5 fL (9.4-12.3); Monocytes Absolute Auto 0.4 X10*3/uL (0.1-1.2); Monocytes Percent Auto 3.8 % (2-11); Neutrophils Absolute Auto 7.1 x10*3/uL (2.0-8.3); Neutrophils Percent Auto 76.2 % (45-73); Platelet Count 281 X10*3/uL (160-400); Red Blood Count 4.23 X10*6/uL (4.20-5.50); Red Cell Distribution Width 14.7 % (11.0-16.0); White Blood Count 9.4 X10*3/uL (4.8-10.8)
[2023-09-23 12:48] LABS: Estimated Average Glucose 229 mg/dL; Hemoglobin A1c % 9.6 % (<6.0)
[2023-09-23 13:06] LABS: Alanine Aminotransferase 20 U/L (0-31); Albumin Level 4.1 g/dL (3.5-5.0); Alkaline Phosphatase 140 U/L (39-117); Anion Gap 13 (12-20); Aspartate Amino Transferase 13 U/L (5-31); Bilirubin Total 0.3 mg/dL (0.0-1.0); Blood Urea Nitrogen 16 mg/dL (9-16); Calcium 9.7 mg/dL (8.4-10.2); Carbon Dioxide 26 mmol/L (22-29); Chloride 106 mmol/L (96-108); Estimated Glomerular Filt Rate > 60; Glucose Random 230 mg/dL (60-115); Potassium 4.4 mmol/L (3.3-5.1); Sodium 141 mmol/L (135-145); Total Protein 7.4 g/dL (6.5-8.0)
== END 2023-09-23 11:35 | disposition home or self-care (01) ==
LOC: HO.LAB 11:34
PROVIDERS: PCP Internal Medicine; Visit Provider Internal Medicine
DX: I10 Essential (primary) hypertension (principal); E11.9 Type 2 diabetes mellitus without complications; Z86.73 Personal history of transient ischemic attack (TIA), and cerebral infarction without residual deficits
CPT/HCPCS: 36415; 80053; 83036; 85025

== ENCOUNTER 2023-10-08 12:20 | Outpatient (AMB) | payer MEDICARE, MEDICAID, SELFPAY ==
--- NOTE | 2023-10-08 12:30 | MHC.OFFVIS ---
Intake Vital Signs 10/08/23 12:36 Height 5 ft Weight 230 lb BMI 44.9 Intake Visit Reasons: OV-right humeral fx, DOI 08/09/23-follow up Intake Note: Loraine is a 53 year old left hand dominant female presents today for a follow up of right humeral fx, DOI 08/09/23. Patient reports her pain is still constant. She states that she took an extra muscle relaxer due to helping her pain. Pain is worse at night and it wakes her up. Allergies No Known Allergies [No Known Allergies*] Allergy (Verified 10/08/23 12:33) HPI OV-right humeral fx, DOI 08/09/23-follow up HPI Details 53-year-old left hand dominant female who presents in the office today for a follow up of a right humeral fracture, which occurred on 08/09/2023 status post walking without support at home and tripping over a rug landing on her right elbow. I last saw the patient in the office on 09/13/2023 when the proximal humerus brace was remolded and placed back on the patient. Patient reports her pain is constant. She states she took an extra muscle relaxer and Tylenol, which gave her pain relief. She states the pain is worse at night causing her to wake up. She reports pain between the fracture site and the elbow. She states she has been doing some home exercises but does have limited ROM due to a prior stroke. [facility] Medical History CVA (cerebral vascular accident) Complex atypical endometrial hyperplasia Fibroids Muscle spasm Stroke Hypertension Diabetes Surgical History Hx of adenoidectomy H/O dilation and curettage Hx of tubal ligation Family History Father History of liver cancer Mother Hx of thyroid disease Family history of diabetes mellitus Social History Household Members: Spouse and Children Housing: House Alcohol intake: never Patient Tobacco Use Status: Never used Tobacco Cigarette Packs Per Day: 0.5 Cigarettes Per Day: 10.0 Years Smoked: 20 Advance Directives Date on File: 12/29/21 service: No Current occupational status: disabled Review of Systems Const All systems reviewed & are unremarkable except as noted in HPI and below Physical Exam Vital Signs: BMI result Body Mass Index 44.9 Const General: cooperative, healthy appearing and no acute distress Resp Effort & Inspection: normal respiratory effort and able to speak in complete sentences Cardio Rate: regular rate Peripheral pulses: Peripheral pulses 2+ throughout GI Palpation (GI): Soft to palpation Skin Lesions: no lesions Rashes: no rashes Extrem Other: Right upper extremity: has baseline neurological deficits from a prior stroke. Prior edema and ecchymosis around the mid shaft humerus at the fracture site has resolved. Assessment & Plan Assessment & Plan (1) Right humeral fracture: Code(s): S42.301A - Unspecified fracture of shaft of humerus, right arm, initial encounter for closed fracture Qualifiers: Encounter type: subsequent encounter Fracture healing: with routine healing Fracture morphology: unspecified fracture morphology Fracture type: closed Humerus Location: proximal Qualified Code(s): S42.201D - Unspecified fracture of upper end of right humerus, subsequent encounter for fracture with routine healing Plan Ms. Mathias is a 53-year-old left hand dominant female who presents in the office today for a follow up of a right humeral fracture, which occurred on 08/09/2023 status post walking without support at home and tripping over a rug landing on her right elbow. I last saw the patient in the office on 09/13/2023 when the proximal humerus brace was remolded and placed back on the patient. Patient reports her pain is constant. She states she took an extra muscle relaxer and Tylenol, which gave her pain relief. She states the pain is worse at night causing her to wake up. She reports pain between the fracture site and the elbow. She states she has been doing some home exercises but does have limited ROM due to a prior stroke. Patient reports she still experiences discomfort on the posterior upper extremity to the elbow at night. I recommend the use of the thermal molded brace or an KARLY wrap at night, whichever gives her more stability and comfort while sleeping. Follow up will be in 6 weeks, or sooner if needed. X-rays of the right elbow which were obtained while in the office today and were reviewed by me, Radha Meza PA-C, revealed routine healing of a right humeral fracture. Orders: Orders XR humerus RT Today S42.201D - Unspecified fracture of upper end of right humerus, subsequent encounter for fracture with routine healing Patient Instructions: Scribed by Ellen Robertson medical staff services manager, for Radhathanh Meza PA-C on 10/08/2023 at 12:21 pm, EST. Coding Level of Care Code Global (20289) Diagnoses Closed fracture of proximal end of right humerus with routine healing, unspecified fracture morphology, subsequent encounter S42.201D Encounter type: subsequent encounter Fracture healing: with routine healing Fracture morphology: unspecified fracture morphology Fracture type: closed Humerus Location: proximal
[2023-10-08 12:36] VITALS: BMI 44.9
== END 2023-10-08 13:08 | disposition home or self-care (01) ==
PROVIDERS: PCP Internal Medicine; Visit Provider Physician Assistant
DX: S42.201D Unspecified fracture of upper end of right humerus, subsequent encounter for fracture with routine healing (principal)
CPT/HCPCS: 99213

== ENCOUNTER 2023-10-08 14:41 | Outpatient (REF) | payer MEDICARE, MEDICAID, SELFPAY ==
--- NOTE | ~2023-10-08 | XR_ITS ---
EXAMINATION: XR HUMERUS, RIGHT CLINICAL INFORMATION: Specified fracture of upper end of right humerus. COMPARISON: 09/13/2023 TECHNIQUE: AP and lateral views of the right humerus. FINDINGS: Redemonstration of comminuted fracture of the midshaft of the humerus with some interval bridging callus formation. Limited visualization due to overlying soft tissue. Previously identified radial head comminuted fracture redemonstrated, incompletely imaged. XR/XR humerus RT IMPRESSION: 1. Redemonstration of comminuted fracture of the midshaft of the humerus with some interval bridging callus formation. Limited visualization due to overlying soft tissue. 2. Previously identified radial head comminuted fracture redemonstrated, incompletely imaged.
== END 2023-10-08 14:42 | disposition home or self-care (01) ==
LOC: HO.HOSX 14:41
PROVIDERS: Visit Provider Physician Assistant
DX: S42.201D Unspecified fracture of upper end of right humerus, subsequent encounter for fracture with routine healing (principal)
CPT/HCPCS: 73060; 99212

== ENCOUNTER 2023-11-05 11:05 | Outpatient (REF) | payer MEDICARE, MEDICAID, SELFPAY | END 2023-11-05 11:06 | disposition home or self-care (01) | LOC: HO.HOSX 11:05 | PROVIDERS: Visit Provider Physician Assistant | DX: Z13.89 Encounter for screening for other disorder (principal) ==

== ENCOUNTER 2023-11-20 11:25 | Outpatient (REF) | payer MEDICARE, MEDICAID, SELFPAY ==
[2023-11-20 11:40] LABS: MANUAL DIFF FLAG NO
[2023-11-20 12:41] LABS: Basophils Absolute Auto 0.1 X10*3/uL (0.0-0.2); Basophils Percent Auto 0.7 % (0-2); Eosinophils Absolute Auto 0.2 X10*3/uL (0.0-0.4); Hematocrit 36.2 % (37.0-47.0); Hemoglobin 10.9 g/dl (12.0-16.0); Imm Gran Abs Auto 0.03 X10*3/uL (0.00-0.03); Imm Gran Pct Auto 0.4 % (0.0-0.4); Lymphocytes Absolute Auto 1.4 X10*3/uL (1.2-4.9); Lymphocytes Percent Auto 16.9 % (20-40); Mean Corpuscular HGB Conc 30.1 g/dl (31.0-35.0); Mean Corpuscular Volume 86.2 fL (80.0-98.0); Mean Platelet Volume 12.3 fL (9.4-12.3); Monocytes Absolute Auto 0.4 X10*3/uL (0.1-1.2); Monocytes Percent Auto 4.5 % (2-11); Neutrophils Absolute Auto 6.3 x10*3/uL (2.0-8.3); Neutrophils Percent Auto 75.5 % (45-73); Platelet Count 279 X10*3/uL (160-400); Red Cell Distribution Width 14.4 % (11.0-16.0); White Blood Count 8.4 X10*3/uL (4.8-10.8)
[2023-11-20 12:49] LABS: Estimated Average Glucose 223 mg/dL; Hemoglobin A1c % 9.4 % (<6.0)
[2023-11-20 13:17] LABS: Alanine Aminotransferase 23 U/L (0-31); Albumin Level 4.1 g/dL (3.5-5.0); Alkaline Phosphatase 120 U/L (39-117); Anion Gap 15 (12-20); Aspartate Amino Transferase 15 U/L (5-31); Bilirubin Total 0.3 mg/dL (0.0-1.0); Blood Urea Nitrogen 9 mg/dL (9-16); Calcium 9.9 mg/dL (8.4-10.2); Carbon Dioxide 29 mmol/L (22-29); Chloride 103 mmol/L (96-108); Estimated Glomerular Filt Rate > 60; Glucose Random 312 mg/dL (60-115); Potassium 4.7 mmol/L (3.3-5.1); Sodium 142 mmol/L (135-145); Total Protein 7.1 g/dL (6.5-8.0)
== END 2023-11-20 11:26 | disposition home or self-care (01) ==
LOC: HO.LAB 11:25
PROVIDERS: PCP Internal Medicine; Visit Provider Internal Medicine
DX: E11.9 Type 2 diabetes mellitus without complications (principal); I10 Essential (primary) hypertension; Z86.73 Personal history of transient ischemic attack (TIA), and cerebral infarction without residual deficits
CPT/HCPCS: 36415; 80053; 83036; 85025

== ENCOUNTER 2023-12-27 15:02 | Outpatient (REF) | payer MEDICARE, MEDICAID, SELFPAY ==
[2023-12-27 16:05] LABS: Appearance Urine Clear; Color Urine Yellow; Glucose Urine UA >=1000 mg/dL (Negative); Leukocyte Esterase Urine Negative (Negative); Nitrite Urine Negative (Negative); Specific Gravity - Urine >= 1.030 (1.005-1.025); UMIC TRIGGER UACC YES; Urine Blood Negative (Negative); Urine Ketones Negative (Negative); Urine Protein Trace mg/dL (Neg-Trace)
[2023-12-27 16:11] LABS: Bacteria Urine None Seen (None Seen); Hyaline Casts Urine 0-2 /LPF (0-2); RBC Urine 0-2 /HPF (0-2); Squamous Epithelial Cell Urine 0-2 /HPF (0-2); WBC Urine 0-5 /HPF (0-5)
== END 2023-12-27 15:03 | disposition home or self-care (01) ==
LOC: HO.HMGCLDS 15:02
PROVIDERS: PCP Internal Medicine; Visit Provider Internal Medicine
DX: R30.0 Dysuria (principal)
CPT/HCPCS: 81001; 81003; 87086

== ENCOUNTER 2024-02-04 11:55 | Outpatient (REF) | payer MEDICARE, MEDICAID, SELFPAY ==
[2024-02-04 12:18] LABS: MANUAL DIFF FLAG NO
[2024-02-04 12:46] LABS: Basophils Absolute Auto 0.1 X10*3/uL (0.0-0.2); Basophils Percent Auto 0.5 % (0-2); Eosinophils Absolute Auto 0.2 X10*3/uL (0.0-0.4); Hematocrit 37.6 % (37.0-47.0); Hemoglobin 11.5 g/dl (12.0-16.0); Imm Gran Abs Auto 0.05 X10*3/uL (0.00-0.03); Imm Gran Pct Auto 0.5 % (0.0-0.4); Lymphocytes Percent Auto 19.5 % (20-40); Mean Corpuscular HGB Conc 30.6 g/dl (31.0-35.0); Mean Corpuscular Hemoglobin 26.3 pg (27.0-33.0); Mean Platelet Volume 11.6 fL (9.4-12.3); Monocytes Absolute Auto 0.5 X10*3/uL (0.1-1.2); Monocytes Percent Auto 4.8 % (2-11); Neutrophils Absolute Auto 7.6 x10*3/uL (2.0-8.3); Neutrophils Percent Auto 72.7 % (45-73); Platelet Count 306 X10*3/uL (160-400); Red Blood Count 4.37 X10*6/uL (4.20-5.50); Red Cell Distribution Width 15.5 % (11.0-16.0); White Blood Count 10.4 X10*3/uL (4.8-10.8)
[2024-02-04 12:54] LABS: Estimated Average Glucose 189 mg/dL; Hemoglobin A1c % 8.2 % (<6.0)
[2024-02-04 14:12] LABS: Alanine Aminotransferase 25 U/L (0-31); Albumin Level 4.3 g/dL (3.5-5.0); Alkaline Phosphatase 92 U/L (39-117); Anion Gap 18 (12-20); Aspartate Amino Transferase 18 U/L (5-31); Bilirubin Total 0.3 mg/dL (0.0-1.0); Blood Urea Nitrogen 12 mg/dL (9-16); Calcium 10.1 mg/dL (8.4-10.2); Carbon Dioxide 24 mmol/L (22-29); Chloride 104 mmol/L (96-108); Estimated Glomerular Filt Rate > 60; Glucose Random 213 mg/dL (60-115); Potassium 3.9 mmol/L (3.3-5.1); Sodium 142 mmol/L (135-145); Total Protein 7.5 g/dL (6.5-8.0)
== END 2024-02-04 11:56 | disposition home or self-care (01) ==
LOC: HO.LAB 11:55
PROVIDERS: PCP Internal Medicine; Visit Provider Internal Medicine
DX: I10 Essential (primary) hypertension (principal); E11.9 Type 2 diabetes mellitus without complications; Z86.73 Personal history of transient ischemic attack (TIA), and cerebral infarction without residual deficits
CPT/HCPCS: 36415; 80053; 83036; 85025

== ENCOUNTER → 2024-04-15 13:47 | Outpatient (BNVA) | payer MEDICARE, MEDICAID, SELFPAY | PROVIDERS: PCP Internal Medicine; Visit Provider Physician Assistant Surgical ==

== ENCOUNTER 2024-06-30 11:59 | Outpatient (REF) | payer MEDICARE, SELFPAY ==
[2024-06-30 12:20] LABS: MANUAL DIFF FLAG NO
[2024-06-30 12:30] LABS: Basophils Absolute Auto 0.1 X10*3/uL (0.0-0.2); Basophils Percent Auto 0.7 % (0-2); Eosinophils Absolute Auto 0.2 X10*3/uL (0.0-0.4); Eosinophils Percent Auto 2.3 % (0-4); Hematocrit 36.6 % (37.0-47.0); Imm Gran Abs Auto 0.03 X10*3/uL (0.00-0.03); Imm Gran Pct Auto 0.3 % (0.0-0.4); Lymphocytes Absolute Auto 1.7 X10*3/uL (1.2-4.9); Lymphocytes Percent Auto 19.1 % (20-40); Mean Corpuscular HGB Conc 30.1 g/dl (31.0-35.0); Mean Corpuscular Hemoglobin 25.8 pg (27.0-33.0); Mean Corpuscular Volume 85.7 fL (80.0-98.0); Mean Platelet Volume 11.1 fL (9.4-12.3); Monocytes Absolute Auto 0.4 X10*3/uL (0.1-1.2); Monocytes Percent Auto 4.4 % (2-11); Neutrophils Absolute Auto 6.5 x10*3/uL (2.0-8.3); Neutrophils Percent Auto 73.2 % (45-73); Platelet Count 295 X10*3/uL (160-400); Red Blood Count 4.27 X10*6/uL (4.20-5.50); Red Cell Distribution Width 15.9 % (11.0-16.0); White Blood Count 8.8 X10*3/uL (4.8-10.8)
[2024-06-30 12:39] LABS: Estimated Average Glucose 151 mg/dL; Hemoglobin A1c % 6.9 % (<6.0)
[2024-06-30 13:03] LABS: Creatinine Urine 136.51 mg/dL; Microalbum/Creatinine Ratio Ur 158.2 ug/mg cr (<30)
[2024-06-30 13:08] LABS: Alkaline Phosphatase 78 U/L (39-117); Anion Gap 12 (12-20); Aspartate Amino Transferase 30 U/L (5-31); Bilirubin Total 0.2 mg/dL (0.0-1.0); Blood Urea Nitrogen 10 mg/dL (9-16); Calcium 9.4 mg/dL (8.4-10.2); Carbon Dioxide 26 mmol/L (22-29); Chloride 109 mmol/L (96-108); Cholesterol 126 mg/dL (<200); Estimated Glomerular Filt Rate > 60; Glucose Fasting 222 mg/dL (60-99); HDL Cholesterol 34 mg/dL (>40); LDL Cholesterol Calculated 63 mg/dL (<100); Potassium 4.5 mmol/L (3.3-5.1); Sodium 142 mmol/L (135-145); Total Protein 7.2 g/dL (6.5-8.0); Triglycerides 145 mg/dL (<150)
[2024-06-30 13:34] LABS: Free T4 (Free Thyroxine) 1.09 ng/dL (0.71-1.85); Thyroid Stimulating Hormone 0.67 uIU/mL (0.32-4.0); Vitamin D 25-OH Total 50.1 ng/mL (>30)
[2024-06-30 13:37] LABS: Alanine Aminotransferase 34 U/L (0-31)
== END 2024-06-30 12:00 | disposition home or self-care (01) ==
LOC: HO.LAB 11:59
PROVIDERS: PCP Internal Medicine; Visit Provider Internal Medicine
DX: Z86.73 Personal history of transient ischemic attack (TIA), and cerebral infarction without residual deficits (principal); E11.9 Type 2 diabetes mellitus without complications; I10 Essential (primary) hypertension
CPT/HCPCS: 36415; 80053; 80061; 82043; 82306; 82570; 83036; 84439; 84443; 85025

== ENCOUNTER 2024-11-10 15:02 | Outpatient (AMB) | payer MEDICARE, SELFPAY ==
--- NOTE | 2024-11-10 15:04 | MHC.PC.OV ---
Vital Signs 11/10/24 15:09 Height 5 ft Weight 131.088 kg BMI 56.4 BP 186/88 H Respiration 18 Pulse 105 H Pulse Source Pulse Oximeter Temp 97.2 F Temp Source Temporal Artery Scan Pulse Oximetry (%) 97 Oxygen Delivery Method Room Air Intake Visit Reasons: Routine - see comments Financial Rep Required: No Accompanied by: Self / Same As Patient Allergies No Known Allergies [No Known Allergies*] Allergy (Verified 11/10/24 15:04) HPI HPI Comments History of Present Illness Details 54 year old female with history of hld, htn, deprepssion, cva, depression, and super morbid obesity with BMI 56.4 presents to the office today for management of chronic conditions and to establish care. She has been tracking blood pressures and notes average bp of 146/74 bp and is compliant with antihypertensive agents. She is concerned that she has asthma given shortness of breath with exertion. Denies any wheezing. Does use her son's albuterol with in fact. She has been wearing AC GM with average glucose of 154 and average hemoglobin A1c of 7.0%. She is compliant with her medications. States that she will titrate her Lantus by 2 units upper down as needed. She states she is currently using 40 units. She has been following a low-carbohydrate diet and has cut out soda. Has increased protein and fruits and vegetables. She does find it hard to exercise due to balance issues following her CVA with resultant right-sided hemiparesis. She is requesting assistance for weight management given she is having v difficulty with weight loss. She did have a fall earlier last month secondary to her poor balance and is looking for a referral to physical therapy. [facility] Medical History (Updated 11/10/24 @ 15:42 by WYATT Berg) Hemiparesis affecting right side as late effect of cerebrovascular accident CVA (cerebral vascular accident) Complex atypical endometrial hyperplasia Fibroids Muscle spasm Stroke Hypertension Diabetes Surgical History (Updated 04/15/24 @ 14:24 by Samra Pollock CMA) Hx of hysterectomy, total Hx of adenoidectomy H/O dilation and curettage Hx of tubal ligation Family History (Updated 04/15/24 @ 14:26 by Samra Pollock CMA) Father History of liver cancer Mother Hx of thyroid disease Family history of diabetes mellitus Son Asthma Son No problems noted. Son No problems noted. Social History (Updated 04/15/24 @ 14:26 by Samra Pollock CMA) Household Members: Spouse and Children Housing: House Alcohol intake: never Patient Tobacco Use Status: Former Tobacco user Cigarette Packs Per Day: 0.5 Cigarettes Per Day: 10.0 Years Smoked: 20 Advance Directives Date on File: 12/29/21 service: No Current occupational status: disabled Review of Systems Const All systems reviewed & are unremarkable except as noted in HPI and below Physical exam (Primary Care) Vital Signs: Last Vital Signs Temp 97.2 F 11/10/24 15:09 Pulse 105 H 11/10/24 15:09 Resp 18 11/10/24 15:09 BP 186/88 H 11/10/24 15:09 Pulse Ox 97 11/10/24 15:09 Oxygen Delivery Method Room Air 11/10/24 15:09 BMI result Body Mass Index 56.4 Tobacco/Smoking Status: Tobacco use Status Patient Tobacco Use Status Former Tobacco user 11/10/24 15:06 Const Other: Constitutional - Awake and Alert, No apparent distress Eyes - PERRLA, EOMI Cardiovascular - S1S2, RRR, No edema Respiratory - Normal lung expansion, Normal respiratory effort, No respiratory distress, CTA bilaterally Extremities - no calf tenderness bilaterally, no swelling Skin - Warm/Dry Neurological - Alert & oriented x3, right sided hemiparesis Psychological - Appropriate affect Coding Level of Care Code New Pt Level 4 (55477) Complex EM visit Add On G2211 Diagnoses Obesity, morbid, BMI 50 or higher E66.01 Hypertension I10 Diabetic polyneuropathy associated with type 2 diabetes mellitus E11.42 Dysuria R30.0 Hemiparesis affecting right side as late effect of cerebrovascular accident I69.351 Assessment & Plan Assessment & Plan (1) Obesity, morbid, BMI 50 or higher: Code(s): E66.01 - Morbid (severe) obesity due to excess calories Category: Medical Plan: Weight loss efforts encouraged. Recommend diet lower in carbohydrates/sugars as well as highly processed foods and oils. Increased protein intake as well as fruits and vegetables. Recommend regular exercise though this is limited due to her hemiparesis. Will initiate Trulicity which will help with blood glucose levels as well as weight loss. (2) Hypertension: Code(s): I10 - Essential (primary) hypertension Category: Medical Plan: Uncontrolled with blood pressure on recheck 186/88. Increase lisinopril to 40 mg daily. Continue hydralazine 50 mg q.i.d.. Follow-up in 2 weeks for blood pressure recheck. Renal function and electrolyte levels to be rechecked prior to visit (3) Diabetic polyneuropathy associated with type 2 diabetes mellitus: Code(s): E11.42 - Type 2 diabetes mellitus with diabetic polyneuropathy Category: Medical Plan: Continue with C GM. Glucose levels on CGM do appear to be reasonably controlled. Will recheck hemoglobin A1c prior to next visit. We will initiate Trulicity and she can continue 40 units of Lantus as well as metformin. Recommend diabetic diet. Continue annual foot and eye exams. Continue gabapentin for polyneuropathy. (4) Dysuria: Code(s): R30.0 - Dysuria Category: Medical Plan: We will check UA/UC. Patient reports chronic dysuria and urge incontinence. We will continue use of briefs which are managed by echo on Medical supply. (5) Hemiparesis affecting right side as late effect of cerebrovascular accident: Code(s): I69.351 - Hemiplegia and hemiparesis following cerebral infarction affecting right dominant side Category: Medical Plan: Referred to physical therapy for therapeutic exercises, transfer assistance, and assistance with ADLs Plan Follow-up in 2 weeks. Labs to be completed prior to visit. Referred for screening mammogram and to PT. Also referred for screening colonoscopy. Orders: Orders PT Evaluation and Treatment 11/10/24 I69.351 - Hemiplegia and hemiparesis following cerebral infarction affecting right dominant side MM screening mammo BI 11/10/24 Z12.31 - Encounter for screening mammogram for malignant neoplasm of breast Complete Blood Count Auto Diff 11/10/24 E11.42 - Type 2 diabetes mellitus with diabetic polyneuropathy, E11.9 - Type 2 diabetes mellitus without complications, E66.01 - Morbid (severe) obesity due to excess calories, I10 - Essential (primary) hypertension Basic Metabolic Panel 11/10/24 E11.42 - Type 2 diabetes mellitus with diabetic polyneuropathy, E11.9 - Type 2 diabetes mellitus without complications, E66.01 - Morbid (severe) obesity due to excess calories, I10 - Essential (primary) hypertension Hemoglobin A1c 11/10/24 E11.42 - Type 2 diabetes mellitus with diabetic polyneuropathy, E11.9 - Type 2 diabetes mellitus without complications, E66.01 - Morbid (severe) obesity due to excess calories, I10 - Essential (primary) hypertension UA CC w/rflx Micro + Cult 11/10/24 R30.0 - Dysuria Referrals Gastroenterology Referral Z12.11 - Encounter for screening for malignant neoplasm of colon Medications: New dulaglutide (Trulicity) 3 mg (0.5 mL) subcut QWEEK 2 mL 2RF albuterol sulfate 90 mcg/actuation (Ventolin HFA) 2 puffs inhalation Q6H PRN 8.5 grams 1RF shortness of breath or wheezing lisinopril 40 mg PO DAILY 90 tabs 1RF Changed From insulin glargine (Lantus Solostar U-100 Insulin) 50 units (0.5 mL) subcut QAM 15 mL 1RF To insulin glargine (Lantus Solostar U-100 Insulin) 40 units (0.4 mL) subcut QAM 15 mL 1RF Discontinued glipizide ER Discontinued Reason: Doctor's Order 10 mg (2 x 5 mg) PO BID 360 tabs 0RF lisinopril Discontinued Reason: Doctor's Order 20 mg PO DAILY 90 tabs 1RF Patient Instructions: Increase lisinopril to 40mg daily. Monitor BP- goals less than 140/90 Increase trulicity to 3mg. DC glipizide. Lantus 40 untis. COntinue metformin PT referral Albuterol as needed for shortness of breath and wheezing. Have [facility] sent paperwork UA ordered to check for UTI
[2024-11-10 15:09] VITALS: BP 186/88; PULSE 105; RESP 18; TEMP 36.2; O2SAT 97; BMI 56.4
== END 2024-11-10 15:48 | disposition home or self-care (01) ==
LOC: HO.HMCHD 15:02
PROVIDERS: PCP Internal Medicine; Visit Provider Physician Assistant
DX: E66.01 Morbid (severe) obesity due to excess calories (principal); I10 Essential (primary) hypertension; E11.42 Type 2 diabetes mellitus with diabetic polyneuropathy; R30.0 Dysuria; I69.351 Hemiplegia and hemiparesis following cerebral infarction affecting right dominant side

== ENCOUNTER → 2024-11-10 15:02 | Outpatient (BNVA) | payer MEDICARE, SELFPAY | PROVIDERS: PCP Internal Medicine; Visit Provider Physician Assistant | DX: E66.01 Morbid (severe) obesity due to excess calories (principal); Z68.43 Body mass index [BMI] 50.0-59.9, adult; I10 Essential (primary) hypertension; E11.42 Type 2 diabetes mellitus with diabetic polyneuropathy; R30.0 Dysuria; I69.351 Hemiplegia and hemiparesis following cerebral infarction affecting right dominant side; Z79.4 Long term (current) use of insulin; Z79.84 Long term (current) use of oral hypoglycemic drugs; Z79.899 Other long term (current) drug therapy | CPT/HCPCS: 99202 ==

== ENCOUNTER 2024-11-30 12:51 | Outpatient (REF) | payer MEDICARE, SELFPAY | END 2024-11-30 12:52 | disposition home or self-care (01) | LOC: HO.MAMMO 12:51 | PROVIDERS: PCP Physician Assistant; Visit Provider Physician Assistant | DX: Z12.31 Encounter for screening mammogram for malignant neoplasm of breast (principal) | CPT/HCPCS: 77063; 77067 ==

== ENCOUNTER → 2024-11-30 13:15 | Outpatient (BNV) | payer MEDICARE, SELFPAY | PROVIDERS: PCP Physician Assistant; Visit Provider Internal Medicine | DX: Z12.31 Encounter for screening mammogram for malignant neoplasm of breast (principal) | CPT/HCPCS: 77063; 77067 ==

== ENCOUNTER 2024-12-15 11:28 | Outpatient (REF) | payer MEDICARE, SELFPAY ==
[2024-12-15 11:46] LABS: MANUAL DIFF FLAG NO
[2024-12-15 12:26] LABS: White Blood Count 10.4 X10*3/uL (4.8-10.8)
[2024-12-15 12:27] LABS: Basophils Absolute Auto 0.1 X10*3/uL (0.0-0.2); Basophils Percent Auto 0.5 % (0-2); Eosinophils Absolute Auto 0.2 X10*3/uL (0.0-0.4); Eosinophils Percent Auto 1.9 % (0-4); Hematocrit 36.9 % (37.0-47.0); Hemoglobin 11.4 g/dl (12.0-16.0); Imm Gran Abs Auto 0.05 X10*3/uL (0.00-0.03); Imm Gran Pct Auto 0.5 % (0.0-0.4); Lymphocytes Absolute Auto 1.8 X10*3/uL (1.2-4.9); Lymphocytes Percent Auto 17.2 % (20-40); Mean Corpuscular HGB Conc 30.9 g/dl (31.0-35.0); Mean Corpuscular Hemoglobin 26.2 pg (27.0-33.0); Mean Corpuscular Volume 84.8 fL (80.0-98.0); Mean Platelet Volume 11.8 fL (9.4-12.3); Monocytes Absolute Auto 0.4 X10*3/uL (0.1-1.2); Neutrophils Absolute Auto 7.9 x10*3/uL (2.0-8.3); Neutrophils Percent Auto 75.9 % (45-73); Platelet Count 304 X10*3/uL (160-400); Red Blood Count 4.35 X10*6/uL (4.20-5.50); Red Cell Distribution Width 16.3 % (11.0-16.0)
[2024-12-15 12:32] LABS: Estimated Average Glucose 160 mg/dL; Hemoglobin A1c % 7.2 % (<6.0)
[2024-12-15 12:50] LABS: Anion Gap 16 (12-20); Blood Urea Nitrogen 14 mg/dL (9-16); Calcium 10.3 mg/dL (8.4-10.2); Carbon Dioxide 27 mmol/L (22-29); Chloride 106 mmol/L (96-108); Estimated Glomerular Filt Rate > 60; Glucose Random 143 mg/dL (60-115); Sodium 145 mmol/L (135-145)
[2024-12-15 13:03] LABS: Appearance Urine Clear; Color Urine Yellow; Glucose Urine UA Negative (Negative); Leukocyte Esterase Urine Trace (Negative); Nitrite Urine Negative (Negative); PH 5.5 (5.0-9.0); Specific Gravity - Urine >= 1.030 (1.005-1.025); UMIC TRIGGER UACC YES; Urine Blood Negative (Negative); Urine Ketones Trace mg/dL (Negative); Urine Protein 30 (1+) mg/dL (Neg-Trace)
[2024-12-15 13:10] LABS: Bacteria Urine None Seen (None Seen); Hyaline Casts Urine 0-2 /LPF (0-2); RBC Urine 0-2 /HPF (0-2); WBC Urine 0-5 /HPF (0-5)
== END 2024-12-15 11:29 | disposition home or self-care (01) ==
LOC: HO.LAB 11:28
PROVIDERS: PCP Physician Assistant; Visit Provider Physician Assistant
DX: I10 Essential (primary) hypertension (principal); E11.9 Type 2 diabetes mellitus without complications; E66.01 Morbid (severe) obesity due to excess calories; Z68.43 Body mass index [BMI] 50.0-59.9, adult; R00.0 Tachycardia, unspecified; Z86.73 Personal history of transient ischemic attack (TIA), and cerebral infarction without residual deficits; Z79.899 Other long term (current) drug therapy
CPT/HCPCS: 36415; 80048; 81001; 81003; 83036; 85025; 99212

== ENCOUNTER 2024-12-15 14:23 | Outpatient (AMB) | payer MEDICARE, SELFPAY ==
--- NOTE | 2024-12-15 14:24 | A.OFFPC_ITS ---
Vital Signs 12/15/24 14:33 Height 5 ft Weight 127.006 kg BMI 54.7 BP 158/82 H Respiration 16 Pulse 115 H Temp 97.5 F Temp Source Temporal Artery Scan Pulse Oximetry (%) 96 Oxygen Delivery Method Room Air Intake Visit Reasons: 1 Month F/U [employer]one Sewer Required: No Accompanied by: Self / Same As Patient Allergies No Known Allergies (No Known Allergies*) Allergy (Verified 12/15/24 14:25) Medication List - Last Reconciled 12/15/24 by WYATT Berg albuterol sulfate 90 mcg/actuation 2 puffs PO Q6H PRN aspirin (Adult Low Dose Aspirin) 81 mg PO DAILY atorvastatin 40 mg PO DAILY baclofen 10 mg PO TID bupropion HCl XL 300 mg PO DAILY cholecalciferol (vitamin D3) 125 mcg PO DAILY clopidogrel 75 mg PO DAILY dulaglutide (Trulicity) 3 mg (0.5 mL) subcut QWEEK fluoxetine 60 mg PO BEDTIME gabapentin 300 mg PO BEDTIME gabapentin 100 mg PO BID hydralazine 75 mg (1.5 x 50 mg) PO TID insulin glargine (Lantus Solostar U-100 Insulin) 40 units (0.4 mL) subcut QAM lisinopril 40 mg PO BID lisinopril 40 mg PO DAILY metformin 1,000 mg PO BID omeprazole 20 mg PO BID prochlorperazine maleate 10 mg PO DAILY PRN HPI HPI Comments History of Present Illness Details 54-year-old female with history of asthm a, hypertension, type 2 diabetes, morbid obesity presents to the office today for follow-up. Blood pressures were significantly elevated and lisinopril dosing was increased. She has been taking 40 mg twice daily. Also hydralazine 50 mg t.i.d.. Blood pressure remains elevated in the office today at 158/82. Has been checking blood pressures at home with SBP typically in the 140s. Trulicity dose was also increased to 3 mg weekly which she has been taking for the last 3 weeks. She has lost about 8 lb and glucose average is 134 through her CGM. She does try to follow a healthy diet but states that artificial sweeteners do upset her stomach. She has an upcoming appointment with endocrinology tomorrow. She has been struggling with her asthma over the last few days given the increased heat with good improvement in dyspnea/wheezing with her albuterol inhaler. Otherwise, denies any lasting dyspnea on exertion, orthopnea, lower extremity edema, chest pains, palpitations. She has been tachycardic over the last few visits, TIA at 01:15 but is asymptomatic. ROS: General: No fevers, malaise, unintentional weight loss Cardiovascular: No chest pain, palpitations, or leg edema Respiratory: No shortness of breath, wheezing, cough GI: no n/v MSK: No myalgia, back pain Neuro: No headaches, weakness, paresthesias Skin: No rashes or lesions EXAM: Constitutional - Awake and Alert, No apparent distress Eyes - PERRL Cardiovascular - S1S2, tachycardic, regular rhythm, No edema Respiratory - Normal lung expansion, Normal respiratory effort, No respiratory distress, CTA bilaterally Extremities - no calf tenderness bilaterally, no swelling Skin - Warm/Dry Neurological - Alert & oriented x3 Psychological - Appropriate affect [facility] Medical History (Updated 12/15/24 @ 15:12 by WYATT Berg) Hemiparesis affecting right side as late effect of cerebrovascular accident CVA (cerebral vascular accident) Complex atypical endometrial hyperplasia Fibroids Muscle spasm Stroke Hypertension Diabetes Surgical History (Updated 04/15/24 @ 14:24 by Samra Pollock CMA) Hx of hysterectomy, total Hx of adenoidectomy H/O dilation and curettage Hx of tubal ligation Family History (Updated 04/15/24 @ 14:26 by Samra Pollock CMA) Father History of liver cancer Mother Hx of thyroid disease Family history of diabetes mellitus Son Asthma Son No problems noted. Son No problems noted. Social History (Updated 04/15/24 @ 14:26 by Samra Pollock CMA) Household Members: Spouse and Children Housing: House Alcohol intake: never Patient Tobacco Use Status: Former Tobacco user Cigarette Packs Per Day: 0.5 Cigarettes Per Day: 10.0 Years Smoked: 20 Advance Directives Date on File: 12/29/21 service: No Current occupational status: disabled Physical exam (Primary Care) Vital Signs: Last Vital Signs Temp 97.5 F 12/15/24 14:33 Pulse 115 H 12/15/24 14:33 Resp 16 12/15/24 14:33 BP 158/82 H 12/15/24 14:33 Pulse Ox 96 12/15/24 14:33 Oxygen Delivery Method Room Air 12/15/24 14:33 Tobacco/Smoking Status: Tobacco use Status Patient Tobacco Use Status Former Tobacco user 12/15/24 14:27 Coding Level of Care Code Est Pt Level 4 (39504) Complex EM visit Add On G2211 Diagnoses Hypertension I10 Diabetes E11.9 Obesity, morbid, BMI 50 or higher E66.01 Sinus tachycardia R00.0 Assessment & Plan Assessment & Plan (1) Hypertension: Code(s): I10 - Essential (primary) hypertension Category: Medical Plan: Uncontrolled with blood pressure 158/82. Reduce lisinopril back to 40 mg daily. Renal function electrolyte levels reviewed. Increase hydralazine to 75 mg t.i.d.. Continue monitoring blood pressures at home. Should blood pressures remain elevated above 140/90, advised to increase hydralazine to 100 mg t.i.d. and notify the office. She is mildly tachycardic which could possibly be secondary to the hydralazine use but she is asymptomatic and given obesity tachycardia could also be demand related. Will monitor (2) Diabetes: Code(s): E11.9 - Type 2 diabetes mellitus without complications Category: Medical Plan: Reviewed labs. Hemoglobin A1c increased to 7.2%. Trulicity was increased to 3 mg weekly at last visit. Recommend continuing medications as prescribed. Continue working on diabetic diet. Follow-up with endocrinology as scheduled. (3) Obesity, morbid, BMI 50 or higher: Code(s): E66.01 - Morbid (severe) obesity due to excess calories Category: Medical Plan: Commended on weight loss thus far and encouraged to continue with weight loss efforts. (4) Sinus tachycardia: Code(s): R00.0 - Tachycardia, unspecified Category: Medical Plan: Suspect related to demand given morbid obesity. Sinus rhythm, asymptomatic. Could also possibly related to hydralazine. Continue monitoring as tachycardia is mild and she is asymptomatic Plan Follow-up in 4-6 months. Monitor blood pressures at home. Plan as above Orders: Orders Lipid Panel 4 Months E11.9 - Type 2 diabetes mellitus without complications, I10 - Essential (primary) hypertension, I63.9 - Cerebral infarction, unspecified Hemoglobin A1c 4 Months E11.9 - Type 2 diabetes mellitus without complications, I10 - Essential (primary) hypertension, I63.9 - Cerebral infarction, unspecified Basic Metabolic Panel 4 Months E11.9 - Type 2 diabetes mellitus without complications, I10 - Essential (primary) hypertension, I63.9 - Cerebral infarction, unspecified Liver Panel 4 Months E11.9 - Type 2 diabetes mellitus without complications, I10 - Essential (primary) hypertension, I63.9 - Cerebral infarction, unspecified Vitamin B12 4 Months E11.9 - Type 2 diabetes mellitus without complications, I10 - Essential (primary) hypertension, I63.9 - Cerebral infarction, unspecified Medications: Changed From hydralazine 50 mg PO TID To hydralazine 75 mg (1.5 x 50 mg) PO TID 135 tabs 1RF
[2024-12-15 14:33] VITALS: BP 158/82; PULSE 115; RESP 16; TEMP 36.4; O2SAT 96; BMI 54.7
== END 2024-12-15 15:00 | disposition home or self-care (01) ==
LOC: HO.HMCHD 14:23
PROVIDERS: PCP Physician Assistant; Visit Provider Physician Assistant
DX: I10 Essential (primary) hypertension (principal); E11.9 Type 2 diabetes mellitus without complications; E66.01 Morbid (severe) obesity due to excess calories; R00.0 Tachycardia, unspecified

== ENCOUNTER 2024-12-23 14:31 | Outpatient (AMB) | payer MEDICARE, SELFPAY ==
--- NOTE | 2024-12-23 14:42 | A.OFFVIS_ITS ---
Vital Signs 12/23/24 14:43 Height 5 ft Weight 284 lb 6.341 oz BMI 55.5 BP 160/80 H Blood Pressure Location Rt brachial Position Sitting Pulse 116 H Pulse Source Pulse Oximeter Pulse Oximetry (%) 98 Oxygen Delivery Method Room Air Intake Visit Reasons: T2DM Intake Note: NEW Patient presents today to establish treatment for Type 2 Diabetes Mellitus: Last Diabetic eye exam was on: DUE Last Podiatry exam was on: Patient does not see a Teacher Advisor Most recent HbA1c: 7.2%, 12/15/2024 Random Glucose- 124 mg/dL, Today Recycling Director Required: No Accompanied by: Self / Same As Patient Allergies No Known Allergies (No Known Allergies*) Allergy (Verified 12/23/24 14:43) HPI Comments Details: 54 year old for diabetes consult Medical history asthma, hypertension, obesity, CVA PCP Ngozi Gallegos Current Medications Trulicity 3mg weekly Lantus 40 units Metformin 1000mg twice daily A1C 7.2 11/2024. Freestyle Masood 3-GMI 6.7%, 86% target Patient has lost 16 pounds with diet and exercise. She would like to see the diabetic apprentice stylist for further recommendations She is overdue for eye exam Does not see podiatry. ROS CONSTITUTIONAL: Denies weight loss, fever and chills. HEENT: Denies changes in vision and hearing. RESPIRATORY: Denies SOB and cough. CV: Denies palpitations and CP GI: Denies abdominal pain, nausea, vomiting and diarrhea. : Denies dysuria and urinary frequency. MSK: Denies new myalgia and joint pain. SKIN: Denies rash and pruritus. NEUROLOGICAL: Denies headache PSYCHIATRIC: Denies recent changes in mood. PHYSICAL EXAM: GENERAL: Alert and oriented x 3. NAD EYES: EOMI. Anicteric. HENT: Moist mucous membranes. No scleral icterus. No cervical lymphadenopathy. LUNGS: Clear to auscultation bilaterally. CARDIOVASCULAR: Regular rate and rhythm. No murmur. No JVD. ABDOMEN: Soft, non-tender +bs EXTREMITIES: No edema. Non-tender. SKIN: No rashes or lesions. Warm. NEUROLOGIC: No new focal neurological deficits. PSYCHIATRIC: Cooperative. Appropriate mood and affect [facility] Medical History (Updated 12/27/24 @ 09:24 by Mamta Freire MD) Hemiparesis affecting right side as late effect of cerebrovascular accident CVA (cerebral vascular accident) Complex atypical endometrial hyperplasia Fibroids Muscle spasm Stroke Hypertension Diabetes Surgical History (Updated 04/15/24 @ 14:24 by Samra Pollock CMA) Hx of hysterectomy, total Hx of adenoidectomy H/O dilation and curettage Hx of tubal ligation Family History (Updated 04/15/24 @ 14:26 by Samra Pollock CMA) Father History of liver cancer Mother Hx of thyroid disease Family history of diabetes mellitus Son Asthma Son No problems noted. Son No problems noted. Social History (Updated 04/15/24 @ 14:26 by Samra Pollock CMA) Household Members: Spouse and Children Housing: House Alcohol intake: never Patient Tobacco Use Status: Former Tobacco user Cigarette Packs Per Day: 0.5 Cigarettes Per Day: 10.0 Years Smoked: 20 Advance Directives Date on File: 12/29/21 service: No Current occupational status: disabled Physical Exam Vital Signs: Last Vital Signs Pulse 116 H 12/23/24 14:43 BP 160/80 H 12/23/24 14:43 Pulse Ox 98 12/23/24 14:43 Oxygen Delivery Method Room Air 12/23/24 14:43 BMI result Body Mass Index 55.5 Results Reviewed Results Reviewed: Laboratory Last Values Glucose (Clinic) 124 mg/dL (60-115) H 12/23/24 14:51 Assessment & Plan Assessment & Plan (1) Diabetes: Code(s): E11.9 - Type 2 diabetes mellitus without complications Category: Medical Qualifiers: Diabetes mellitus complication status: with hyperglycemia Diabetes mellitus intermediate insulin use: with termite exterminator use Diabetes mellitus type: type 2 Qualified Code(s): E11.65 - Type 2 diabetes mellitus with hyperglycemia; Z79.4 - skilled nursing (current) use of insulin Plan Type 2 diabetes. Improving glycemic control She continues her weight loss journey. She is referred for diabetic education Orders: Referrals Nutrition/Dietitian Referral E11.9 - Type 2 diabetes mellitus without complications, Z86.73 - Personal history of transient ischemic attack (TIA), and cerebral infarction without residual deficits Medications: New FreeStyle Masood 3 Plus Sensor (blood-glucose sensor) every 15 days 6 ea 3RF NS E11.9 - Type 2 diabetes mellitus without complications, Z79.4 - extermination inspector (current) use of insulin Coding Level of Care Code Est Pt Level 4 (08351) Complex EM visit Add On G2211 Diagnoses Type 2 diabetes mellitus with hyperglycemia, with long-term current use of insulin E11.65; Z79.4 Diabetes mellitus complication status: with hyperglycemia Diabetes mellitus termite exterminator insulin use: with intermediate use Diabetes mellitus type: type 2
[2024-12-23 14:43] VITALS: BP 160/80; PULSE 116; O2SAT 98; BMI 55.5
[2024-12-23 14:54] LABS: Glucose, Whole Blood 124 mg/dL (60-115)
== END 2024-12-23 15:17 | disposition home or self-care (01) ==
LOC: HO.ENCR 14:32
PROVIDERS: PCP Physician Assistant; Visit Provider Internal Medicine
DX: E11.65 Type 2 diabetes mellitus with hyperglycemia (principal); Z79.4 Long term (current) use of insulin

== ENCOUNTER → 2024-12-23 14:31 | Outpatient (BNVA) | payer MEDICARE, SELFPAY | PROVIDERS: PCP Physician Assistant; Visit Provider Internal Medicine | DX: E11.65 Type 2 diabetes mellitus with hyperglycemia (principal); I69.351 Hemiplegia and hemiparesis following cerebral infarction affecting right dominant side; Z79.4 Long term (current) use of insulin; Z79.84 Long term (current) use of oral hypoglycemic drugs | CPT/HCPCS: 82947; 99212 ==

== ENCOUNTER 2025-02-24 15:05 | Outpatient (AMB) | payer MEDICARE, SELFPAY ==
[2025-02-24 15:09] VITALS: BP 180/88; PULSE 107; O2SAT 96; BMI 56.8
--- NOTE | 2025-02-24 15:09 | A.OFFVIS_ITS ---
Vital Signs 02/24/25 15:09 Height 5 ft Weight 291 lb 0.163 oz BMI 56.8 BP 180/88 H Blood Pressure Location Rt brachial Position Sitting Pulse 107 H Pulse Source Pulse Oximeter Pulse Oximetry (%) 96 Oxygen Delivery Method Room Air Intake Visit Reasons: T2DM Intake Note: Patient presents today for a follow-up on Type 2 Diabetes Mellitus: Last Diabetic eye exam was on: 12/2024, [facility] Last Podiatry exam was on: Patient does not see a Chip Tester Most recent HbA1c: 7.2%, 12/15/2024 Random Glucose- 127 mg/dL, Today Certified Physician Assistant Required: No Accompanied by: Self / Same As Patient Allergies No Known Allergies (No Known Allergies*) Allergy (Verified 02/24/25 15:10) HPI Comments Details: 54 year old for diabetes consult Medical history asthma, hypertension, obesity, CVA PCP Ngozi Gallegos Current Medications Trulicity 3mg weekly Lantus 40 units Metformin 1000mg twice daily A1C 7.2 11/2024. Freestyle Msaood 3-GMI 6.6%, 89% target Patient has gained some weight back since her last visit. Does not see podiatry. ROS CONSTITUTIONAL: Denies weight loss, fever and chills. HEENT: Denies changes in vision and hearing. RESPIRATORY: Denies SOB and cough. CV: Denies palpitations and CP GI: Denies abdominal pain, nausea, vomiting and diarrhea. : Denies dysuria and urinary frequency. MSK: Denies new myalgia and joint pain. SKIN: Denies rash and pruritus. NEUROLOGICAL: Denies headache PSYCHIATRIC: Denies recent changes in mood. PHYSICAL EXAM: GENERAL: Alert and oriented x 3. NAD EYES: EOMI. Anicteric. HENT: Moist mucous membranes. No scleral icterus. No cervical lymphadenopathy. LUNGS: Clear to auscultation bilaterally. CARDIOVASCULAR: Regular rate and rhythm. No murmur. No JVD. ABDOMEN: Soft, non-tender +bs EXTREMITIES: No edema. Non-tender. SKIN: No rashes or lesions. Warm. NEUROLOGIC: No new focal neurological deficits. PSYCHIATRIC: Cooperative. Appropriate mood and affect [facility] Medical History Hemiparesis affecting right side as late effect of cerebrovascular accident CVA (cerebral vascular accident) Complex atypical endometrial hyperplasia Fibroids Muscle spasm Stroke Hypertension Diabetes Surgical History Hx of hysterectomy, total Hx of adenoidectomy H/O dilation and curettage Hx of tubal ligation Family History Father History of liver cancer Mother Hx of thyroid disease Family history of diabetes mellitus Son Asthma Son No problems noted. Son No problems noted. Social History Household Members: Spouse and Children Housing: House Alcohol intake: never Patient Tobacco Use Status: Former Tobacco user Cigarette Packs Per Day: 0.5 Cigarettes Per Day: 10.0 Years Smoked: 20 Advance Directives Date on File: 12/29/21 service: No Current occupational status: disabled Physical Exam Vital Signs: Last Vital Signs Pulse 107 H 02/24/25 15:09 BP 180/88 H 02/24/25 15:09 Pulse Ox 96 02/24/25 15:09 Oxygen Delivery Method Room Air 02/24/25 15:09 BMI result Body Mass Index 56.8 Results Reviewed Results Reviewed: Laboratory Last Values Glucose (Clinic) 127 mg/dL (60-115) H 02/24/25 15:15 Assessment & Plan Assessment & Plan (1) Diabetes: Code(s): E11.9 - Type 2 diabetes mellitus without complications Category: Medical Qualifiers: Diabetes mellitus complication status: with hyperglycemia Diabetes mellitus custodial insulin use: with custodial use Diabetes mellitus type: type 2 Qualified Code(s): E11.65 - Type 2 diabetes mellitus with hyperglycemia; Z79.4 - buttermaker helper (current) use of insulin (2) Insulin use (long-term) in type 2 diabetes: Code(s): E11.9 - Type 2 diabetes mellitus without complications; Z79.4 - buttermaker helper (current) use of insulin Category: Medical Qualifiers: Diabetes mellitus complication status: with other specified complication Qualified Code(s): E11.69 - Type 2 diabetes mellitus with other specified complication; Z79.4 - buttermaker helper (current) use of insulin Plan Diabetes-controlled per CGM. A1C not quite due She has follow up with pcp this month Will try to switch trulicity to mounjaro HTN-uncontrolled. Start atenolol Medications: New atenolol 25 mg PO DAILY 90 tabs 1RF Mounjaro (tirzepatide) switching from 3mg trulicity 7.5 mg (0.5 mL) subcut QWEEK 6 mL 1RF NS On Hold Trulicity (dulaglutide) Hold Comment: Dose Change 3 mg (0.5 mL) subcut QWEEK 6 mL 2RF NS E11.9 - Type 2 diabetes mellitus without complications Coding Level of Care Code Est Pt Level 4 (23723) Complex EM visit Add On G2211 Diagnoses Type 2 diabetes mellitus with hyperglycemia, with long-term current use of insulin E11.65; Z79.4 Diabetes mellitus complication status: with hyperglycemia Diabetes mellitus custodial insulin use: with terminal superintendent use Diabetes mellitus type: type 2 Type 2 diabetes mellitus with other specified complication, with long-term current use of insulin E11.69; Z79.4 Diabetes mellitus complication status: with other specified complication
[2025-02-24 15:19] LABS: Glucose, Whole Blood 127 mg/dL (60-115)
== END 2025-02-24 15:32 | disposition home or self-care (01) ==
LOC: HO.ENCR 15:06
PROVIDERS: PCP Physician Assistant; Visit Provider Internal Medicine
DX: E11.65 Type 2 diabetes mellitus with hyperglycemia (principal); Z79.4 Long term (current) use of insulin; E11.69 Type 2 diabetes mellitus with other specified complication

== ENCOUNTER → 2025-02-24 15:05 | Outpatient (BNVA) | payer MEDICARE, SELFPAY | PROVIDERS: PCP Physician Assistant; Visit Provider Internal Medicine | DX: E11.65 Type 2 diabetes mellitus with hyperglycemia (principal); Z79.4 Long term (current) use of insulin | CPT/HCPCS: 82947; 99212 ==

== ENCOUNTER 2025-03-30 09:34 | Outpatient (AMB) | payer MEDICARE, SELFPAY ==
--- NOTE | 2025-03-30 09:35 | A.OFFVIS_ITS ---
Vital Signs 03/30/25 09:40 Height 5 ft Weight 280 lb BMI 54.7 Intake Visit Reasons: colo screening Intake Note: This patient presents for an assessment for colonoscopy screening. Pt c/o; loose stools, reports no rectal bleeding. Parent Trainer Required: No Accompanied by: Self / Same As Patient Allergies No Known Allergies (No Known Allergies*) Allergy (Verified 02/24/25 15:10) HPI HPI colo screening: Details: 54-YEAR-OLD FEMALE HERE FOR PREPROCEDURAL MEETING to discuss a screening colonoscopy. She is referred by Ngozi Gallegos. PMX Morbid obesity History of CVA with right hemiparesis Diabetes Hypertension Endometrial hyperplasia and fibroids Abnormal uterine bleeding Hx of uterine and cervical cancer * SURGICAL HISTORY Hysterectomy Adenoidectomy History of D&C Tubal ligation * ALLERGIES: NKDA * [employer] LABS: Laboratory Tests 12/15/24 11:45 WBC 10.4 Hgb 11.4 L Hct 36.9 L MCV 84.8 MCH 26.2 L MCHC 30.9 L RDW 16.3 H Plt Count 304 Needs Chem panel TODAY'S VISIT This is her first colonoscopy Shaka or upper GI problems Anes or sed problems Cardiac or resp problems FHX: No FHX CRC or polyps She does not think she can prep [facility] Medical History (Updated 03/30/25 @ 09:51 by ERIN De La Garza) Cervical cancer Uterine endometrial cancer, sarcoma Hemiparesis affecting right side as late effect of cerebrovascular accident CVA (cerebral vascular accident) Complex atypical endometrial hyperplasia Fibroids Muscle spasm Stroke Hypertension Diabetes Surgical History Hx of hysterectomy, total Hx of adenoidectomy H/O dilation and curettage Hx of tubal ligation Family History Father History of liver cancer Mother Hx of thyroid disease Family history of diabetes mellitus Son Asthma Son No problems noted. Son No problems noted. Social History Household Members: Spouse and Children Housing: House Alcohol intake: never Patient Tobacco Use Status: Former Tobacco user Cigarette Packs Per Day: 0.5 Cigarettes Per Day: 10.0 Years Smoked: 20 Advance Directives Date on File: 12/29/21 service: No Current occupational status: disabled Review of Systems Const Denies fatigue, Denies fever(s), Denies night sweats, Denies poor appetite and Denies weight loss ENT Reports Normal hearing present, Denies dental pain, Denies dysphagia, Denies hearing loss, Denies mouth pain, Denies odynophagia, Denies throat swelling, D enies tongue swelling and Reports other (Dentition adequate) Card Reports no additional complaints Resp Reports no additional complaints GI Details: Denies abdominal pain, Denies melena, Denies bloating, Denies hematochezia, Denies constipation, Denies GI cramping, Denies dysphagia, Denies excessive flatus, Denies early satiety, Denies heartburn, Denies diarrhea, Denies nausea, Denies odynophagia, Denies vomiting and Denies hematemesis Musc Reports abnormal gait and Reports muscle weakness Skin/Breast Denies pruritus, Denies lesions, Denies rash and Denies jaundice Neuro Reports Normal hearing present, Denies Abnormal speech present and Reports abnormal gait Endo Denies fatigue Aller/Immun Denies throat swelling and Denies tongue swelling Physical Exam Vital Signs: BMI result Body Mass Index 54.7 Const General: cooperative, no acute distress, well developed and well groomed Nutritional Appearance: well nourished and obese morbidly obese Orientation/consciousness: oriented to person, oriented to place and oriented to time Limitations: No language barrier and wheelchair HEENT Head: Yes normocephalic and Yes atraumatic Eyes General: appearance normal, both eyes and all related structures Pupils: Equal, round and reactive pupils present Resp Effort & Inspection: normal respiratory effort and able to speak in complete sentences GI Inspection: No distended, No Abdominal panniculus present and Yes obesity Palpation (GI): Soft to palpation, nontender, no guarding, not rigid and No hepatosplenomegaly present Percussion: Yes normal to percussion Auscultation: normal bowel sounds Rectal Exam - Female: deferred Skin General skin exam: no rashes or lesions noted, turgor normal, skin not dry, no jaundice, No spider nevi and no striae Rashes: no rashes Nails: normal Neuro General: oriented to person, oriented to place and oriented to time Cranial nerves: Yes Equal, round and reactive pupils present and Yes Normal hearing present Speech: No Abnormal speech present Extrem General: Yes normal to inspection, No clubbing, No cyanosis and No edema Psych Appearance: grossly normal and well kempt Mental Status: mental status grossly normal Speech and movement: Normal speech and movement present Affect: normal affect Attitude: cooperative Thought process: Normal thought process present and not confabulating Thought content: Normal thought content present Insight: Good insight present (Psych) Judgement: Good judgement present (Psych) Assessment & Plan Assessment & Plan (1) Obesity, morbid, BMI 50 or higher: Code(s): E66.01 - Morbid (severe) obesity due to excess calories Category: Medical (2) Pre-op examination: Code(s): Z01.818 - Encounter for other preprocedural examination Category: Medical Plan This is a immobility impaired morbidly obese patient and while she is quite cognizant mentally her disability makes her feel that she would not be able to prep for colonoscopy. She asks if she can be admitted to have this done and I advise her that unfortunately this is not an option. However, she does not have any known family history of colon cancer or polyps so this would make her a good candidate for Cologuard screening. She was educated about this, we watch the video, and she is aware that if it comes back positive then we need to again revisit the question of colonoscopy. She is quite agreeable to doing Cologuard. Return office visit in 8 weeks Orders: Orders Comprehensive Met. Panel Today E66.01 - Morbid (severe) obesity due to excess calories, Z01.818 - Encounter for other preprocedural examination Coding Level of Care Code New Pt Level 3 (54071) Diagnoses Obesity, morbid, BMI 50 or higher E66.01 Pre-op examination Z01.818
[2025-03-30 09:40] VITALS: BMI 54.7
== END 2025-03-30 10:06 | disposition home or self-care (01) ==
LOC: HO.HGI 09:35
PROVIDERS: PCP Physician Assistant; Visit Provider Nurse Practitioner
DX: E66.01 Morbid (severe) obesity due to excess calories (principal); Z68.43 Body mass index [BMI] 50.0-59.9, adult; R19.7 Diarrhea, unspecified
CPT/HCPCS: 99203

== ENCOUNTER → 2025-03-30 09:34 | Outpatient (BNVA) | payer MEDICARE, SELFPAY | PROVIDERS: PCP Physician Assistant; Visit Provider Nurse Practitioner | DX: Z01.818 Encounter for other preprocedural examination (principal); E66.01 Morbid (severe) obesity due to excess calories; Z68.43 Body mass index [BMI] 50.0-59.9, adult | CPT/HCPCS: 99202 ==

== ENCOUNTER 2025-04-15 12:02 | Outpatient (REF) | payer MEDICARE, SELFPAY ==
[2025-04-15 12:54] LABS: Alanine Aminotransferase 17 U/L (0-31); Albumin Level 4.4 g/dL (3.5-5.0); Alkaline Phosphatase 78 U/L (39-117); Anion Gap 14 (12-20); Aspartate Amino Transferase 29 U/L (5-31); Blood Urea Nitrogen 9 mg/dL (9-16); Calcium 9.6 mg/dL (8.4-10.2); Carbon Dioxide 27 mmol/L (22-29); Chloride 106 mmol/L (96-108); Cholesterol 109 mg/dL (<200); Estimated Glomerular Filt Rate > 60; HDL Cholesterol 26 mg/dL (>40); Potassium 4.2 mmol/L (3.3-5.1); Sodium 143 mmol/L (135-145); Total Protein 7.0 g/dL (6.5-8.0); Triglycerides 132 mg/dL (<150)
[2025-04-15 13:18] LABS: Vitamin B12 175 pg/mL (200-900)
== END 2025-04-15 12:03 | disposition home or self-care (01) ==
LOC: HO.LAB 12:02
PROVIDERS: Nurse Practitioner; PCP Physician Assistant; Visit Provider Physician Assistant
DX: E11.69 Type 2 diabetes mellitus with other specified complication (principal); I10 Essential (primary) hypertension; E66.01 Morbid (severe) obesity due to excess calories; I63.9 Cerebral infarction, unspecified; Z01.818 Encounter for other preprocedural examination; Z68.43 Body mass index [BMI] 50.0-59.9, adult; Z79.4 Long term (current) use of insulin
CPT/HCPCS: 36415; 80053; 80061; 82248; 82607; 83036; 97802

== ENCOUNTER 2025-04-15 12:45 | Outpatient (AMB) | payer MEDICARE, SELFPAY ==
[2025-04-15 13:08] VITALS: BMI 55.2
--- NOTE | 2025-04-15 13:08 | MHC.AMNUTRGE ---
VS Expanded 04/15/25 13:08 04/20/25 22:14 Height 5 ft 5 ft Weight 282 lb 10.122 oz 283 lb BMI 55.2 55.3 Intake Visit Reasons: T2DM Allergies No Known Allergies (No Known Allergies*) Allergy (Verified 04/20/25 13:00) Nutrition Presentation Details: Pt presents for MNT for T2DM Pt reports having 1 -2 meals prepared by [employer] PT reports working on diet modifications, having smaller meals related to [facility] food frequency fish 1/wk fruits: 2-3/d dairy 4+/d ve/d beverages: water, juices fried foods : 1-2 /wk physical activity :ADL BS Monitoring Most Recent Diabetes Results: Cholesterol, (<200) 109 mg/dL 04/15/25 HDL Cholesterol, (>40) 26 mg/dL L 04/15/25 Triglycerides, (<150) 132 mg/dL 04/15/25 Creatinine, (0.5-1.4) 0.58 mg/dL 04/15/25 BUN, (9-16) 9 mg/dL 04/15/25 Sodium, (135-145) 143 mmol/L 04/15/25 Potassium, (3.3-5.1) 4.2 mmol/L 04/15/25 Chloride, (96-108) 106 mmol/L 04/15/25 Carbon Dioxide, (22-29) 27 mmol/L 04/15/25 Calcium, (8.4-10.2) 9.6 mg/dL Δ 04/15/25 AST, (5-31) 29 U/L 04/15/25 ALT, (0-31) 17 U/L 04/15/25 Total Protein, (6.5-8.0) 7.0 g/dL 04/15/25 Albumin, (3.5-5.0) 4.4 g/dL 04/15/25 EOQ-Cdxbqes-Mu.Jeor Equation Height: 5 ft Weight: 283 lb Resting Metabolic Rate: 1808.20 Calculated Activity Level: Sedentary Calories Needed to Maintain Weight: 2169.84 Diagnosis Nutrition problem #1: excessive energy intake As related to (etiology) #1: diagnosis As evidenced by (sign/symptom) #1: knowledge deficit of diet [facility] Medical History B12 deficiency Cervical cancer Uterine endometrial cancer, sarcoma Hemiparesis affecting right side as late effect of cerebrovascular accident CVA (cerebral vascular accident) Complex atypical endometrial hyperplasia Fibroids Muscle spasm Stroke Hypertension Diabetes Surgical History Hx of hysterectomy, total Hx of adenoidectomy H/O dilation and curettage Hx of tubal ligation Family History Father History of liver cancer Mother Hx of thyroid disease Family history of diabetes mellitus Son Asthma Son No problems noted. Son No problems noted. Social History Household Members: Spouse and Children Housing: House Alcohol intake: never Patient Tobacco Use Status: Former Tobacco user Cigarette Packs Per Day: 0.5 Cigarettes Per Day: 10.0 Years Smoked: 20 e-Cigarette/Vaping Use: Never Used Advance Directives Date on File: 12/29/21 service: No Current occupational status: disabled Assessment & Plan Assessment & Plan (1) Insulin use (long-term) in type 2 diabetes: Code(s): E11.9 - Type 2 diabetes mellitus without complications; Z79.4 - prison (current) use of insulin Category: Medical Qualifiers: Diabetes mellitus complication status: with other specified complication Qualified Code(s): E11.69 - Type 2 diabetes mellitus with other specified complication; Z79.4 - prison (current) use of insulin Plan: current wt: 129 kg ( 04/17 ) est kcal needs as per MSJ: 2000-250 = 1750 est protein needs as per 1 g/kg BW: 130 est fluid needs as per 30 ml/kg BW: 3900 Recommended fiber > 12 g /day and gradually increase up to 25-28 g /day or as tolerated Nutrition topics discussed : Reviewed (R), Pt verbalized understanding (V) , not applicable (N/A) R, : Healthy Plate Method Concept: R, : Carbohydrates: food sources of carbohydrates, relationship of carbohydrates to blood glucose, fatty liver GI health. Recommended total amount of carbohydrates per meals and snack. Differences between simple carbohydrates and complex carbohydrates R, : Lean protein foods including vegan , vegetarian sources of protein. Benefits of protein (including but not limited to healing, nutritional value , benefits in weight loss, glucose control R, V, N/A: Fats : Source of fats, benefits of fats. Difference between saturated and unsaturated fats. Saturated fats and its contribution to inflammation R, V, N/A: Fiber: food sources and role of fiber in the diet (including but not limited to its role as a prebiotic, benefits in constipation, role in IBS , role in glucose control and cholesterol level) R, V, N/A: Hydration: role of hydration and prevention of dehydration or over hydration. Foods and water content. R, V, N/A: Vitamins and Minerals in foods and supplements R, V, N/A: Interpreting food labels, including serving size, macronutrients, vitamins, minerals, allergens, ingredient list , % daily value Patient Instructions: Choose no sugar added foods Watch on portion sizes of total carb per meal 60 g carb or less following healthy plate method Coding Level of Care Code Nutr Indiv Intake (81200) Diagnoses Type 2 diabetes mellitus with other specified complication, with long-term current use of insulin E11.69; Z79.4 Diabetes mellitus complication status: with other specified complication Time Spent (min) 30
[2025-04-20 22:14] VITALS: BMI 55.3
== END 2025-04-15 13:38 | disposition home or self-care (01) ==
LOC: HO.ENCR 12:46
PROVIDERS: PCP Physician Assistant; Visit Provider Dietitian, Registered
DX: E11.69 Type 2 diabetes mellitus with other specified complication (principal); Z79.4 Long term (current) use of insulin

== ENCOUNTER 2025-04-20 13:45 | Outpatient (AMB) | payer MEDICARE, SELFPAY ==
--- NOTE | 2025-04-20 12:59 | MHC.PC.OV ---
Vital Signs 04/20/25 13:53 04/20/25 14:20 Weight 126.552 kg BP 164/90 H 136/78 Blood Pressure Location Lt brachial Position Sitting Respiration 18 Pulse 95 Pulse Source Pulse Oximeter Temp 97.0 F Pulse Oximetry (%) 98 Oxygen Delivery Method Room Air Intake Visit Reasons: 4 month f/u Operations Associate Required: No Accompanied by: Self / Same As Patient Allergies No Known Allergies (No Known Allergies*) Allergy (Verified 04/20/25 13:00) Medication List - Last Reconciled 04/20/25 by WYATT Berg albuterol sulfate 90 mcg/actuation 2 puffs PO Q6H PRN aspirin (Adult Low Dose Aspirin) 81 mg PO DAILY atenolol 25 mg PO DAILY atorvastatin 40 mg PO DAILY baclofen 10 mg PO TID blood-glucose sensor (FreeStyle Masood 3 Sensor device) As directed bupropion HCl XL 300 mg PO DAILY cholecalciferol (vitamin D3) 125 mcg PO DAILY clopidogrel 75 mg PO DAILY fluoxetine 60 mg (3 x 20 mg) PO BEDTIME FreeStyle Masood 3 Plus Sensor (blood-glucose sensor) every 15 days NS gabapentin 100 mg PO BID gabapentin 300 mg PO BEDTIME hydralazine 25 mg PO TID hydralazine 50 mg PO TID insulin glargine (Lantus Solostar U-100 Insulin) 30 units (0.3 mL) subcut QAM lancets (Easy Touch Safety Lancets) three times daily lisinopril 40 mg PO DAILY metformin 1,000 mg PO BID omeprazole 20 mg PO BID OneTouch Verio Flex meter (blood-glucose meter) As directed NS OneTouch Verio test strips (blood sugar diagnostic) three times daily NS prochlorperazine maleate 10 mg PO DAILY PRN tirzepatide (Mounjaro) 10 mg (0.5 mL) subcut QWEEK Tobacco use date assessed: 04/20/25 Dental Screening Dental Screen Date: 04/20/25 Did you have a dental visit in the last 12 months?: No Did you have a dental problem in the last 6 months where you did not have access to dental care?: No Was dental information given to patient?: Patient declined HPI HPI Comments History of Present Illness Details 54-year-old female with history of asthma, hypertension, type 2 diabetes, morbid obesity presents to the office today for follow-up. Blood pressures were significantly elevated and lisinopril dosing was increased. She has been taking 40 mg twice daily. Also hydralazine 50 mg t.i.d.. Blood pressure remains elevated in the office today at 158/82. Has been checking blood pressures at home with SBP typically in the 140s. Trulicity dose was also increased to 3 mg weekly which she has been taking for the last 3 weeks. She has lost about 8 lb and glucose average is 134 through her CGM. She does try to follow a healthy diet but states that artificial sweeteners do upset her stomach. She has an upcoming appointment with endocrinology tomorrow. She has been struggling with her asthma over the last few days given the increased heat with good improvement in dyspnea/wheezing with her albuterol inhaler. Otherwise, denies any lasting dyspnea on exertion, orthopnea, lower extremity edema, chest pains, palpitations. She has been tachycardic over the last few visits, TIA at 01:15 but is asymptomatic. Type 2 diabetes-hemoglobin A1c improved to 6.3%. Has been using Mounjaro 7.5 mg weekly, Lantus 40 units daily, metformin 1000 mg twice daily. Does use CGM, average glucose around 108. No significant hyperglycemia. Has had several episodes of hypoglycemia around 3 in the morning but she is asymptomatic. Eye exam is up-to-date Hypertension-blood pressure on recheck 136/78. On hydralazine 25 mg t.i.d., atenolol 25 mg daily, lisinopril 40 mg daily Hyperlipidemia/history of CVA-on baby aspirin, atorvastatin. Last LDL 57 Morbid obesity-on Mounjaro. Has lost about 12 lb in the last 6 months. Reports her exercise tolerance has improved and has not needed her inhaler except for every 1-2 weeks. Follows with the dietitian. High-protein diet ROS: see hpi EXAM: Constitutional - Awake and Alert, No apparent distress Eyes - PERRL Cardiovascular - S1S2, tachycardic, regular rhythm, No edema Respiratory - Normal lung expansion, Normal respiratory effort, No respiratory distress, CTA bilaterally Extremities - no calf tenderness bilaterally, no swelling Skin - Warm/Dry Neurological - Alert & oriented x3 Psychological - Appropriate affect [facility] Medical History B12 deficiency Cervical cancer Uterine endometrial cancer, sarcoma Hemiparesis affecting right side as late effect of cerebrovascular accident CVA (cerebral vascular accident) Complex atypical endometrial hyperplasia Fibroids Muscle spasm Stroke Hypertension Diabetes Surgical History Hx of hysterectomy, total Hx of adenoidectomy H/O dilation and curettage Hx of tubal ligation Family History Father History of liver cancer Mother Hx of thyroid disease Family history of diabetes mellitus Son Asthma Son No problems noted. Son No problems noted. Social History Household Members: Spouse and Children Housing: House Alcohol intake: never Patient Tobacco Use Status: Former Tobacco user Cigarette Packs Per Day: 0.5 Cigarettes Per Day: 10.0 Years Smoked: 20 e-Cigarette/Vaping Use: Never Used Advance Directives Date on File: 12/29/21 service: No Current occupational status: disabled Questionnaire AUDIT C Alcohol Use Questionnaire (AUDIT-C) 1. How often do you have a drink containing alcohol?: Monthly or less 2. How many drinks containing alcohol do you have on a typical day when you are drinking?: 1 or 2 Total Score: 1 Physical exam (Primary Care) Vital Signs: Last Vital Signs Temp 97.0 F 04/20/25 13:53 Pulse 95 04/20/25 13:53 Resp 18 04/20/25 13:53 BP 164/90 H 04/20/25 13:53 Pulse Ox 98 04/20/25 13:53 Oxygen Delivery Method Room Air 04/20/25 13:53 Tobacco/Smoking Status: Tobacco use Status Tobacco use date assessed 04/20/25 04/20/25 13:01 Patient Tobacco Use Status Former Tobacco user 04/20/25 13:01 e-Cigarette/Vaping Use Never Used 04/20/25 14:00 Coding Level of Care Code Est Pt Level 4 (41541) Complex EM visit Add On G2211 Diagnoses Hypertension I10 Type 2 diabetes mellitus with hyperglycemia, with long-term current use of insulin E11.65; Z79.4 Diabetes mellitus type: type 2 Diabetes mellitus ad terminal makeup operator insulin use: with ad terminal makeup operator use Diabetes mellitus complication status: with hyperglycemia Obesity, morbid, BMI 50 or higher E66.01 Assessment & Plan Assessment & Plan (1) Hypertension: Code(s): I10 - Essential (primary) hypertension Category: Medical Plan: Controlled on recheck. Continue current therapies. Low-sodium diet. Continue working on weight loss efforts (2) Diabetes: Code(s): E11.9 - Type 2 diabetes mellitus without complications Category: Medical Qualifiers: Diabetes mellitus type: type 2 Diabetes mellitus [facility] insulin use: with [facility] use Diabetes mellitus complication status: with hyperglycemia Qualified Code(s): E11.65 - Type 2 diabetes mellitus with hyperglycemia; Z79.4 - custodial (current) use of insulin Plan: Controlled. However experiencing episodes of hypoglycemia. Reduced dose of Lantus to 30 units daily. Increase Mounjaro to 10 mg weekly. Continue metformin. (3) Obesity, morbid, BMI 50 or higher: Code(s): E66.01 - Morbid (severe) obesity due to excess calories Category: Medical Plan: Commended on weight loss thus far and encouraged to continue with weight loss efforts. Increase Mounjaro to 10 mg weekly. Continue following with billing administrator. Recommend increased exercise Plan Follow-up in 3 months. Labs to be completed prior to visit. Added vitamin B12 1000 mcg daily given deficiency Orders: Orders Basic Metabolic Panel 3 Months E11.65 - Type 2 diabetes mellitus with hyperglycemia, E66.01 - Morbid (severe) obesity due to excess calories, I10 - Essential (primary) hypertension, Z79.4 - custodial (current) use of insulin, Z86.73 - Personal history of transient ischemic attack (TIA), and cerebral infarction without residual deficits Liver Panel 3 Months E11.65 - Type 2 diabetes mellitus with hyperglycemia, E66.01 - Morbid (severe) obesity due to excess calories, I10 - Essential (primary) hypertension, Z79.4 - custodial (current) use of insulin, Z86.73 - Personal history of transient ischemic attack (TIA), and cerebral infarction without residual deficits Vitamin B12 3 Months E53.8 - Deficiency of other specified B group vitamins Hemoglobin A1c 3 Months E11.65 - Type 2 diabetes mellitus with hyperglycemia, E66.01 - Morbid (severe) obesity due to excess calories, I10 - Essential (primary) hypertension, Z79.4 - terminal superintendent (current) use of insulin, Z86.73 - Personal history of transient ischemic attack (TIA), and cerebral infarction without residual deficits Lipid Panel 3 Months E11.65 - Type 2 diabetes mellitus with hyperglycemia, E66.01 - Morbid (severe) obesity due to excess calories, I10 - Essential (primary) hypertension, Z79.4 - terminal superintendent (current) use of insulin, Z86.73 - Personal history of transient ischemic attack (TIA), and cerebral infarction without residual deficits Medications: New tirzepatide (Mounjaro) 10 mg (0.5 mL) subcut QWEEK 6 mL 1RF mecobalamin (vitamin B12) 1,000 mcg PO DAILY 90 tabs 1RF tirzepatide (Mounjaro) 10 mg (0.5 mL) subcut QWEEK 6 mL 1RF Changed From insulin glargine (Lantus Solostar U-100 Insulin) 40 units (0.4 mL) subcut QAM 45 mL 1RF To insulin glargine (Lantus Solostar U-100 Insulin) 30 units (0.3 mL) subcut QAM 45 mL 1RF Discontinued Trulicity (dulaglutide) Discontinued Reason: Doctor's Order 3 mg (0.5 mL) subcut QWEEK 6 mL 2RF NS E11.9 - Type 2 diabetes mellitus without complications Mounjaro (tirzepatide) switching from 3mg trulicity Discontinued Reason: Doctor's Order 7.5 mg (0.5 mL) subcut QWEEK 6 mL 1RF NS
[2025-04-20 13:53] VITALS: BP 164/90; PULSE 95; RESP 18; TEMP 36.1; O2SAT 98
[2025-04-20 14:20] VITALS: BP 136/78
== END 2025-04-20 14:27 | disposition home or self-care (01) ==
LOC: HO.HMCHD 13:45
PROVIDERS: PCP Physician Assistant; Visit Provider Physician Assistant
DX: I10 Essential (primary) hypertension (principal); E11.65 Type 2 diabetes mellitus with hyperglycemia; Z79.4 Long term (current) use of insulin; E66.01 Morbid (severe) obesity due to excess calories

== ENCOUNTER → 2025-04-20 13:45 | Outpatient (BNVA) | payer MEDICARE, SELFPAY | PROVIDERS: PCP Physician Assistant; Visit Provider Physician Assistant | DX: I10 Essential (primary) hypertension (principal); E11.65 Type 2 diabetes mellitus with hyperglycemia; E66.01 Morbid (severe) obesity due to excess calories; E78.5 Hyperlipidemia, unspecified; Z86.73 Personal history of transient ischemic attack (TIA), and cerebral infarction without residual deficits; Z79.4 Long term (current) use of insulin; Z79.82 Long term (current) use of aspirin; Z79.84 Long term (current) use of oral hypoglycemic drugs; Z79.899 Other long term (current) drug therapy | CPT/HCPCS: 99212 ==

== ENCOUNTER 2025-06-09 15:03 | Outpatient (AMB) | payer MEDICARE, MEDICAID, SELFPAY ==
[2025-06-09 15:06] VITALS: BP 160/80; PULSE 105; O2SAT 95; BMI 52.5
--- NOTE | 2025-06-09 15:06 | A.OFFVIS_ITS ---
Vital Signs 06/09/25 15:06 Height 5 ft Weight 268 lb 15.423 oz BMI 52.5 BP 160/80 H Blood Pressure Location Rt brachial Position Sitting Pulse 105 H Pulse Source Pulse Oximeter Pulse Oximetry (%) 95 Oxygen Delivery Method Room Air Intake Visit Reasons: DM Intake Note: Patient presents today for a follow-up on Type 2 Diabetes Mellitus: Last Diabetic eye exam was on: 12/2024, [facility] Last Podiatry exam was on: Patient does not see a Afternoon Nanny Most recent HbA1c: 6.3%, 04/15/2025 Random Glucose- 134 mg/dL, Today Accompanied by: Self / Same As Patient Allergies No Known Allergies (No Known Allergies*) Allergy (Verified 04/20/25 13:00) Medication List - Last Reconciled 06/09/25 by Mamta Freire MD albuterol sulfate 90 mcg/actuation 2 puffs PO Q6H PRN aspirin (Adult Low Dose Aspirin) 81 mg PO DAILY atenolol 25 mg PO DAILY atorvastatin 40 mg PO DAILY baclofen 10 mg PO TID blood-glucose sensor (FreeStyle Masood 3 Sensor device) As directed bupropion HCl XL 300 mg PO DAILY cholecalciferol (vitamin D3) 125 mcg PO DAILY clopidogrel 75 mg PO DAILY fluoxetine 60 mg (3 x 20 mg) PO BEDTIME FreeStyle Masood 3 Plus Sensor (blood-glucose sensor) every 15 days NS gabapentin 100 mg PO BID gabapentin 300 mg PO BEDTIME hydralazine 25 mg PO TID hydralazine 50 mg PO TID insulin glargine (Lantus Solostar U-100 Insulin) 20 units (0.2 mL) subcut QAM lancets (Easy Touch Safety Lancets) three times daily lisinopril 25 mg PO DAILY mecobalamin (vitamin B12) 1,000 mcg PO DAILY metformin 1,000 mg PO BID omeprazole 20 mg PO BID OneTouch Verio Flex meter (blood-glucose meter) As directed NS OneTouch Verio test strips (blood sugar diagnostic) three times daily NS pen needle, diabetic (Comfort EZ Pen [place]) As directed prochlorperazine maleate 10 mg PO DAILY PRN tirzepatide (Mounjaro) 10 mg (0.5 mL) subcut QWEEK HPI Comments Details: 54 year old for diabetes consult Medical history asthma, hypertension, obesity, CVA PCP Ngozi Gallegos Current Medications Mounjaro 10 units Lantus 25 units-decrease to 20 units today Metformin 1000mg twice daily A1C 6.3 04/15/25 from 7.2 11/2024. Freestyle Masood 3-GMI 5.6%, 99%% target 1% low Patient has lost weight since her last visit [phone] Does not see podiatry. ROS CONSTITUTIONAL: Denies weight loss, fever and chills. HEENT: Denies changes in vision and hearing. RESPIRATORY: Denies SOB and cough. CV: Denies palpitations and CP GI: Denies abdominal pain, nausea, vomiting and diarrhea. : Denies dysuria and urinary frequency. MSK: Denies new myalgia and joint pain. SKIN: Denies rash and pruritus. NEUROLOGICAL: Denies headache PSYCHIATRIC: Denies recent changes in mood. PHYSICAL EXAM: GENERAL: Alert and oriented x 3. NAD EYES: EOMI. Anicteric. HENT: Moist mucous membranes. No scleral icterus. No cervical lymphadenopathy. LUNGS: Clear to auscultation bilaterally. CARDIOVASCULAR: Regular rate and rhythm. No murmur. No JVD. ABDOMEN: Soft, non-tender +bs EXTREMITIES: No edema. Non-tender. SKIN: No rashes or lesions. Warm. NEUROLOGIC: No new focal neurological deficits. PSYCHIATRIC: Cooperative. Appropriate mood and affect [facility] Medical History B12 deficiency Cervical cancer Uterine endometrial cancer, sarcoma Hemiparesis affecting right side as late effect of cerebrovascular accident CVA (cerebral vascular accident) Complex atypical endometrial hyperplasia Fibroids Muscle spasm Stroke Hypertension Diabetes Surgical History Hx of hysterectomy, total Hx of adenoidectomy H/O dilation and curettage Hx of tubal ligation Family History Father History of liver cancer Mother Hx of thyroid disease Family history of diabetes mellitus Son Asthma Son No problems noted. Son No problems noted. Social History Household Members: Spouse and Children Housing: House Alcohol intake: never Patient Tobacco Use Status: Former Tobacco user Cigarette Packs Per Day: 0.5 Cigarettes Per Day: 10.0 Years Smoked: 20 e-Cigarette/Vaping Use: Never Used Advance Directives Date on File: 12/29/21 service: No Current occupational status: disabled Physical Exam Vital Signs: Last Vital Signs Pulse 105 H 06/09/25 15:06 BP 160/80 H 06/09/25 15:06 Pulse Ox 95 06/09/25 15:06 Oxygen Delivery Method Room Air 06/09/25 15:06 BMI result Body Mass Index 52.5 Assessment & Plan Assessment & Plan (1) Diabetes: Code(s): E11.9 - Type 2 diabetes mellitus without complications Category: Medical Qualifiers: Diabetes mellitus type: type 2 Diabetes mellitus intermediate insulin use: with intermediate use Diabetes mellitus complication status: with hyperglycemia Qualified Code(s): E11.65 - Type 2 diabetes mellitus with hyperglycemia; Z79.4 - prison (current) use of insulin (2) Insulin use (long-term) in type 2 diabetes: Code(s): E11.9 - Type 2 diabetes mellitus without complications; Z79.4 - prison (current) use of insulin Category: Medical Qualifiers: Diabetes mellitus complication status: with other specified complication Qualified Code(s): E11.69 - Type 2 diabetes mellitus with other specified complication; Z79.4 - prison (current) use of insulin Plan 55 year old female presenting for follow up Diabetes is now well controlled on current regimen Having some hypoglycemia-will decrease her lantus to 20 units daily. She will drop as needed by 5 units if still having episodes Treat hypoglycemia by rules of 15s Seeing pcp next month. Return in 4 months or sooner as needed Medications: New clobetasol 0.05% 1 appl topical DAILY 118 mL 3RF 1 week Changed From lisinopril 25 mg PO DAILY To lisinopril 40 mg PO DAILY Coding Level of Care Code Est Pt Level 4 (57831) Diagnoses Type 2 diabetes mellitus with hyperglycemia, with long-term current use of insulin E11.65; Z79.4 Diabetes mellitus type: type 2 Diabetes mellitus intermediate insulin use: with intermediate use Diabetes mellitus complication status: with hyperglycemia Type 2 diabetes mellitus with other specified complication, with long-term cu rrent use of insulin E11.69; Z79.4 Diabetes mellitus complication status: with other specified complication
[2025-06-09 15:17] LABS: Glucose, Whole Blood 134 mg/dL (60-115)
== END 2025-06-09 15:36 | disposition home or self-care (01) ==
PROVIDERS: PCP Physician Assistant; Visit Provider Internal Medicine
DX: E11.65 Type 2 diabetes mellitus with hyperglycemia (principal); Z79.4 Long term (current) use of insulin; E11.69 Type 2 diabetes mellitus with other specified complication

== ENCOUNTER → 2025-06-09 15:03 | Outpatient (BNVA) | payer MEDICARE, SELFPAY | PROVIDERS: PCP Physician Assistant; Visit Provider Internal Medicine | DX: E11.65 Type 2 diabetes mellitus with hyperglycemia (principal); Z79.4 Long term (current) use of insulin; Z79.84 Long term (current) use of oral hypoglycemic drugs; Z79.85 Long-term (current) use of injectable non-insulin antidiabetic drugs | CPT/HCPCS: 82947; 99212 ==